=== PATIENT | male | born 1955 | race Caucasian/White ===

== ENCOUNTER 2017-03-29 00:21 | Emergency (ER) | payer BC, OTHER, SELFPAY ==
[2017-03-29 00:22] VITALS: BP 138/90; PULSE 87; RESP 14; TEMP 36.8; O2SAT 95; BMI 29.7
--- NOTE | 2017-03-29 00:34 | XR_ITS ---
XR chest 2V Ordering Physician: Rojelio Yousif MD Patient Age: 61 years: Male HISTORY: ITS.REASON: palpitations TECHNIQUE: PA and lateral chest COMPARISON : June 2014 CXR FINDINGS Lungs well expanded and clear with nothing definitely acute. No significant interval change. Heart danelle and mediastinal structures satisfactory. Scant apical pleural thickening and scarring bilaterally unchanged. Minor elevation right hemidiaphragm unchanged. Mild degenerative changes [id number]. Chest wall unremarkable. No pneumothorax no pleural effusion IMPRESSION: Stable chest nothing definitely acute
[2017-03-29 00:58] LABS: Basophils % 0.7 % (0.1-2.0); Eosinophils # 0.1 K/mm3 (0.0-0.4); Eosinophils % 2.1 % (0.1-12.0); Hematocrit 40.1 % (42.0-52.0); Hemoglobin 13.7 g/dL (14.1-18.0); Lymphocytes # 2.3 K/mm3 (0.7-4.5); Lymphocytes % 36.6 K/mm3 (10-50); Mean Corpuscular HGB Conc 34.2 g/dL (31.8-35.4); Mean Corpuscular Hemoglobin 32.1 pg (27.0-31.2); Mean Corpuscular Volume 93.8 fl (80-94); Mean Platelet Volume 8.1 fl (7.4-10.4); Monocytes # 0.4 K/mm3 (0.1-1.0); Monocytes % 5.9 % (1.7-9.3); Neutrophils # 3.4 K/mm3 (1.8-7.8); Neutrophils % 54.7 % (37.0-80.0); Platelet Count 139 K/mm3 (142-424); Red Blood Count 4.28 M/mm3 (4.60-6.20); Red Cell Distribution Width 14.9 % (11.5-17.5); White Blood Count 6.2 K/mm3 (4.8-10.8)
[2017-03-29 01:11] LABS: Alanine Aminotransferase 71 U/L (12-78); Albumin Level 4.3 gm/dL (3.4-5.0); Albumin/Globulin Ratio 1.2 (1.1-1.8); Alkaline Phosphatase 80 U/L (46-116); Anion Gap 22.9 mEq/L (5-15); Aspartate Amino Transferase 93 U/L (15-37); Bilirubin,Total 0.8 mg/dL (0.2-1.0); Blood Urea Nitrogen 32 mg/dL (7-18); Calcium 9.4 mg/dL (8.5-10.1); Carbon Dioxide 22 mmol/L (21.0-32.0); Chloride 97 mmol/L (98-107); Creatinine Clearance Estimated 37 mL/min (0-300); Creatinine,Serum 2.56 mg/dL (0.70-1.30); Estimated Glomerular Filt Rate 26 ml/min (>60); GFR (African American) 31 ML/MIN (>60); Globulin 3.6 gm/dl (1.3-3.2); Glucose 75 mg/dL (74-106); Potassium 3.9 mmoL/L (3.5-5.1); Sodium 138 mmol/L (136-145); Total Protein,Serum 7.9 gm/dL (6.4-8.2)
[2017-03-29 02:14] LABS: Troponin I < 0.02 ng/ml (0.00-0.06)
--- NOTE | 2017-03-29 02:20 | HMH.EDGENADL ---
ED Disposition Clinical Impression: Palpitations Disposition: Home, Self-Care Condition on Discharge: Good Instructions: DI for Palpitations Additional Instructions: Call your primary care provider tomorrow to arrange follow-up in the office. Return to the emergency room if any sustained palpitations return. Return if any chest pain, shortness of breath, fainting, or other concerns. Referrals: Sacha Dickson MD [Primary Care Provider] - - Critical Care Critical Care Time: No Attestation: On 03/29/17, the high probability of a clinically significant, sudden or life threatening deterioration of the following system(s) required my full and direct attention, intervention and personal management. The time I documented below is in addition to time spent performing reported procedures but includes the following listed in this critical care notation. Medical Decision Making Vital Signs: 03/29/17 00:22 Temperature 98.2 F Temperature Source Oral Pulse Rate [Right Radial] 87 Respiratory Rate 14 Blood Pressure [Right Arm] 138/90 Blood Pressure Mean [Right Arm] 106 Blood Pressure Source [Right Arm] Automatic Cuff Blood Pressure Position [Right Arm] Supine 02 Sat by Pulse Oximetry 95 Oxygen Delivery Method Room Air - Lab Data Lab Results 03/29/17 00:50: WBC 6.2, RBC 4.28 L, Hgb 13.7 L, Hct 40.1 L, MCV 93.8, MCH 32.1 H, MCHC 34.2, RDW 14.9, Plt Count 139 L, MPV 8.1, Neut % (Auto) 54.7, Lymph % (Auto) 36.6, [place] % (Auto) 5.9, Eos % (Auto) 2.1, Baso % (Auto) 0.7, Neut # (Auto) 3.4, Lymph # (Auto) 2.3, [place] # (Auto) 0.4, Eos # (Auto) 0.1, Baso # (Auto) 0.0 03/29/17 00:50: Sodium 138, Potassium 3.9, Chloride 97 L, Carbon Dioxide 22, Anion Gap 22.9 H, BUN 32 H, Creatinine 2.56 H, Estimated Creat Clear 37, Estimated GFR 26 L, Est GFR ( Amer) 31 L, Glucose 75, Calcium 9.4, Total Bilirubin 0.8, AST 93 H, ALT 71, Alkaline Phosphatase 80, Total Protein 7.9, Albumin 4.3, Globulin 3.6 H, Albumin/Globulin Ratio 1.2 03/29/17 00:50: Troponin I < 0.02 Result diagrams: 03/29/17 00:50 03/29/17 00:50 Orders (Tests/Meds): ORDERS Category Date Time Status XR chest 2V Stat Exams 03/29/17 00:34 Taken - Radiology Data #1 Image(s): Chest Image Reviewed: Yes I reviewed the patient's radiology results Preliminary Findings: Normal/NAD - ECG Data Tracing #1 EKG interpreted by Rojelio Yousif MD: Rhythm: sinus Rate: 82 [place]: Left Ectopy: none Conduction: Right bundle branch block ST Segment Changes: none T Wave Changes: none Q Waves: none No evidence of acute ischemia or injury Prior electrocardiagrams reviewed. No change from prior tracings. - Prabhjot Inquiry Pt receiving controlled substance: No General Adult HPI - General Chief complaint: Arrhythmia/Palpitations Stated complaint: heart racing Mode of Arrival: Ambulatory Limitations: No Limitations Description of Symptoms (Recalled from ER Triage Doc. by RN): felt sick and weak for months, tonight felt palpitations - History of Present Illness HPI narrative: The patient states that at about 10:30 PM he was laying on his left side when he began experiencing a rapid heartbeat off and on for about an hour. Episodes would last about 5 minutes each. No associated chest pain, shortness of breath, nausea, diaphoresis, or faintness. He denies having similar previous problems, but his believes that he had similar problems 10 years ago and had an extensive cardiac workup that was negative. He does not have any known coronary artery disease. The patient has the smell of alcohol on his breath and admits to drinking all day today while watching basketball. 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 - Related Data Home Medications Medication Instructions Recorded Confirmed Allopurinol [Allopurinol 100mg 100 mg PO DAILY 03/29/17 03/29/17 tablet] Lisinopril [Lisinopril 20mg Tab] 20
--- NOTE | 2017-03-29 02:23 | ED_ITS ---
ED Disposition Clinical Impression: Palpitations Disposition: Home, Self-Care Condition on Discharge: Good Instructions: DI for Palpitations Additional Instructions: Call your primary care provider tomorrow to arrange follow-up in the office. Return to the emergency room if any sustained palpitations return. Return if any chest pain, shortness of breath, fainting, or other concerns. Referrals: Sacha Dickson MD [Primary Care Provider] - - Critical Care Critical Care Time: No Attestation: On 03/29/17, the high probability of a clinically significant, sudden or life threatening deterioration of the following system(s) required my full and direct attention, intervention and personal management. The time I documented below is in addition to time spent performing reported procedures but includes the following listed in this critical care notation. Medical Decision Making Vital Signs: 03/29/17 00:22 Temperature 98.2 F Temperature Source Oral Pulse Rate [Right Radial] 87 Respiratory Rate 14 Blood Pressure [Right Arm] 138/90 Blood Pressure Mean [Right Arm] 106 Blood Pressure Source [Right Arm] Automatic Cuff Blood Pressure Position [Right Arm] Supine 02 Sat by Pulse Oximetry 95 Oxygen Delivery Method Room Air - Lab Data Lab Results 03/29/17 00:50: WBC 6.2, RBC 4.28 L, Hgb 13.7 L, Hct 40.1 L, MCV 93.8, MCH 32.1 H, MCHC 34.2, RDW 14.9, Plt Count 139 L, MPV 8.1, Neut % (Auto) 54.7, Lymph % ( Auto) 36.6, [place] % (Auto) 5.9, Eos % (Auto) 2.1, Baso % (Auto) 0.7, Neut # (Auto ) 3.4, Lymph # (Auto) 2.3, [place] # (Auto) 0.4, Eos # (Auto) 0.1, Baso # (Auto) 0.0 03/29/17 00:50: Sodium 138, Potassium 3.9, Chloride 97 L, Carbon Dioxide 22, Anion Gap 22.9 H, BUN 32 H, Creatinine 2.56 H, Estimated Creat Clear 37, Estimated GFR 26 L, Est GFR ( Amer) 31 L, Glucose 75, Calcium 9.4, Total Bilirubin 0.8, AST 93 H, ALT 71, Alkaline Phosphatase 80, Total Protein 7.9, Albumin 4.3, Globulin 3.6 H, Albumin/Globulin Ratio 1.2 03/29/17 00:50: Troponin I < 0.02 Result diagrams: 03/29/17 00:50 03/29/17 00:50 Orders (Tests/Meds): ORDERS Category Date Time Status XR chest 2V Stat Exams 03/29/17 00:34 Taken - Radiology Data #1 Image(s): Chest Image Reviewed: Yes I reviewed the patient's radiology results Preliminary Findings: Normal/NAD - ECG Data Tracing #1 EKG interpreted by Rojelio Yousif MD: Rhythm: sinus Rate: 82 [place]: Left Ectopy: none Conduction: Right bundle branch block ST Segment Changes: none T Wave Changes: none Q Waves: none No evidence of acute ischemia or injury Prior electrocardiagrams reviewed. No change from prior tracings. - Prabhjot Inquiry Pt receiving controlled substance: No General Adult HPI - General Chief complaint: Arrhythmia/Palpitations Stated complaint: heart racing Mode of Arrival: Ambulatory Limitations: No Limitations Description of Symptoms (Recalled from ER Triage Doc. by RN): felt sick and weak for months, tonight felt palpitations - History of Present Illness HPI narrative: The patient states that at about 10:30 PM he was laying on his left side when he began experiencing a rapid heartbeat off and on for about an hour. Episodes would last about 5 minutes each. No associated chest pain, shortness of breath , nausea, diaphoresis, or faintness. He denies having similar previous problems , but his wif
[2017-03-29 03:45] VITALS: BP 115/73; PULSE 83; RESP 14; TEMP 37.1; O2SAT 96
== END 2017-03-29 03:48 | disposition home or self-care (01) ==
PROVIDERS: Emergency Provider Emergency Medicine; PCP Internal Medicine Adolescent Medicine
DX: R00.2 Palpitations (principal); E11.9 Type 2 diabetes mellitus without complications; Z79.84 Long term (current) use of oral hypoglycemic drugs; Z79.899 Other long term (current) drug therapy
CPT/HCPCS: 71046; 80053; 84484; 85025; 93005; 93041; 99284

== ENCOUNTER → 2017-04-05 09:31 | Outpatient (CLI) | payer BC, OTHER, SELFPAY ==
[2017-04-05 10:40] LABS: Basophils % 0.3 % (0.1-2.0); Eosinophils # 0.1 K/mm3 (0.0-0.4); Eosinophils % 0.9 % (0.1-12.0); Hematocrit 36.3 % (42.0-52.0); Hemoglobin 12.2 g/dL (14.1-18.0); Lymphocytes # 1.7 K/mm3 (0.7-4.5); Lymphocytes % 15.9 K/mm3 (10-50); Mean Corpuscular HGB Conc 33.7 g/dL (31.8-35.4); Mean Corpuscular Hemoglobin 31.1 pg (27.0-31.2); Mean Corpuscular Volume 92.5 fl (80-94); Mean Platelet Volume 9.1 fl (7.4-10.4); Monocytes # 1.1 K/mm3 (0.1-1.0); Neutrophils # 7.5 K/mm3 (1.8-7.8); Platelet Count 218 K/mm3 (142-424); Red Blood Count 3.92 M/mm3 (4.60-6.20); Red Cell Distribution Width 14.4 % (11.5-17.5); White Blood Count 10.4 K/mm3 (4.8-10.8)
[2017-04-05 10:53] LABS: Hemoglobin A1C 6.4 % (0.0-7.0)
[2017-04-05 12:07] LABS: Alanine Aminotransferase 41 U/L (12-78); Albumin Level 3.8 gm/dL (3.4-5.0); Albumin/Globulin Ratio 1.2 (1.1-1.8); Alkaline Phosphatase 109 U/L (46-116); Anion Gap 35.3 mEq/L (5-15); Aspartate Amino Transferase 49 U/L (15-37); Bilirubin,Total 0.6 mg/dL (0.2-1.0); Calcium 7.8 mg/dL (8.5-10.1); Carbon Dioxide 15 mmol/L (21.0-32.0); Chol/HDL Ratio 5.5 (1-3.5); Cholesterol 148 mg/dL (140-200); Globulin 3.3 gm/dl (1.3-3.2); Glucose 159 mg/dL (74-106); HDL Cholesterol 27 mg/dL (27-67); LDL Cholesterol 69 mg/dL (0-130); Potassium 5.3 mmoL/L (3.5-5.1); Sodium 121 mmol/L (136-145); Total Protein,Serum 7.1 gm/dL (6.4-8.2); Triglycerides 258 mg/dL (30-200); VLDL Cholesterol 52 mg/dL (0-40)
[2017-04-05 13:02] LABS: Chloride 76 mmol/L (98-107); Estimated Glomerular Filt Rate 2 ml/min (>60); GFR (African American) 3 ML/MIN (>60)
[2017-04-05 13:20] LABS: Erythrocyte Sedimentation Rate 88 mm/hr (0-20)
[2017-04-05 13:30] LABS: Blood Urea Nitrogen 155 mg/dL (7-18); Creatinine,Serum 20.03 mg/dL (0.70-1.30)
[2017-04-07 16:16] LABS: Antinuclear Antibodies, IFA Negative (.)
== END ==
PROVIDERS: PCP Internal Medicine Adolescent Medicine; Visit Provider Internal Medicine Adolescent Medicine
DX: M12.9 Arthropathy, unspecified (principal); E11.9 Type 2 diabetes mellitus without complications
CPT/HCPCS: 36415; 80053; 80061; 83036; 85025; 85651; 86038

== ENCOUNTER 2017-04-05 14:05 | Emergency (ER) | payer BC, OTHER, SELFPAY ==
[2017-04-05 14:10] VITALS: BMI 27.7
[2017-04-05 14:12] VITALS: BP 101/68; PULSE 153; RESP 22; TEMP 36.8; O2SAT 99; BMI 27.7
--- NOTE | 2017-04-05 14:25 | XR_ITS ---
XR acute abdomen series HISTORY: ITS.REASON: NVD ORDERING PHYSICIAN: Smooth Campbell MD PATIENT AGE: 61 years COMPARISON: None FINDINGS: From the chest shows no acute finding. The bowel gas pattern is unremarkable. No obvious obstruction.. No abnormal calcifications are evident. No obvious renal or ureteral calculi.. No acute bony anomalies evident. IMPRESSION: No acute finding
--- NOTE | 2017-04-05 14:30 | HMH.EDGENADL ---
ED Disposition Clinical Impression: Acute renal failure (ARF), Diabetes, Acute pancreatitis, Alcoholism Disposition: Xfer Short-Term Hosp Condition on Discharge: Fair Instructions: DI for Diarrhea and Traveler's Diarrhea -- Adult, DI for Diarrhea and Traveler's Diarrhea -- Child, DI for Nausea -- Adult, DI for Nausea -- Child - Critical Care Critical Care Time: No Attestation: On , the high probability of a clinically significant, sudden or life threatening deterioration of the following system(s) required my full and direct attention, intervention and personal management. The time I documented below is in addition to time spent performing reported procedures but includes the following listed in this critical care notation. Medical Decision Making - Medical Records Medical records reviewed: Yes: I reviewed the patient's medical records. Vital Signs: 04/05/17 14:12 04/05/17 15:44 Temperature 98.3 F Temperature Source Oral Pulse Rate [Right Radial] 153 H 78 Respiratory Rate 22 16 Blood Pressure [Right Arm] 101/68 103/57 Blood Pressure Mean [Right Arm] 79 72 Blood Pressure Source [Right Arm] Automatic Cuff Automatic Cuff Blood Pressure Position [Right Arm] Supine Sitting 02 Sat by Pulse Oximetry 99 100 Oxygen Delivery Method Room Air - Lab Data Lab Results 04/05/17 14:00: WBC 9.4, RBC 4.03 L, Hgb 12.8 L, Hct 36.9 L, MCV 91.6, MCH 31.7 H, MCHC 34.6, RDW 14.5, Plt Count 237, MPV 9.0, Neut % (Auto) 75.1, Lymph % (Auto) 14.5, [place] % (Auto) 9.2, Eos % (Auto) 1.1, Baso % (Auto) 0.1, Neut # (Auto) 7.1, Lymph # (Auto) 1.4, [place] # (Auto) 0.9, Eos # (Auto) 0.1, Baso # (Auto) 0.0 04/05/17 14:00: Magnesium 2.8 H, Plasma/Serum Alcohol 0 04/05/17 14:00: Lipase 6325 H 04/05/17 14:00: Lactic Acid 2.3 H 04/05/17 14:16: Sodium 129 L, Potassium 5.5 H, Chloride 76 L, Carbon Dioxide 15 L, Anion Gap 43.5 H, BUN 156 H*, Creatinine 20.41 H, Estimated Creat Clear 4, Estimated GFR 2 L*, Est GFR ( Amer) 3 L*, Glucose 180 H, Calcium 8.1 L, Total Bilirubin 0.6, AST 51 H, ALT 42, Alkaline Phosphatase 108, Total Creatine Kinase 266, CK-MB (CK-2) 2.6, CK-MB (CK-2) Rel Index 1.0, Troponin I < 0.02, Total Protein 7.9, Albumin 3.8, Globulin 4.1 H, Albumin/Globulin Ratio 0.9 L 04/05/17 14:16: B-Natriuretic Peptide 385 H 04/05/17 14:28: Hemoglobin A1c 6.3 04/05/17 14:40: Specimen Source Right radial, O2 % Room air, ABG pH 7.30 L, ABG pCO2 23.2 L, ABG pO2 98.1, ABG HCO3 11.3 L, ABG Total CO2 12.0 L, ABG O2 Saturation 97, ABG Base Excess -15.1 L, [place] Test Acceptable Result diagrams: 04/05/17 14:00 04/05/17 14:16 Orders (Tests/Meds): ED MEDICATIONS Generic Name Dose Route Start Last Admin Trade Name Freq PRN Reason Stop Dose Admin Sodium Chloride 1,000 mls @ 125 mls/hr 04/05/17 14:30 04/05/17 14:40 Sod Chloride 0.9% 1000ml Bag IV 05/05/17 14:29 125 mls/hr .Q8H NASRIN Administration Discontinued Medications Generic Name Dose Route Start Last Admin Trade Name Freq PRN Reason Stop Dose Admin Famotidine 20 mg 04/05/17 14:30 04/05/17 14:40 Pepcid 20mg/2ml Vial IV 04/05/17 14:31 20 mg ONCE ONE Administration ORDERS Category Date Time Status Arterial Blood Gas Stat RT 04/05/17 14:41 Ordered - Radiology Data #1 Image(s): Chest, Abdomen Image Reviewed: Yes I reviewed the patient's radiology image Preliminary Findings: Normal/NAD No acute findings on a acute abdomen series. - CT Data CT Scan: Head Time Received: 15:[address] Reviewed: Yes: I have viewed the radiologist's interpretation - ECG Data Tracing #1 Sinus rhythm 84/min baseline artifact right bundle branch block with left axis deviation no acute ST segment or T-wave changes. Second EKG was normal sinus rhythm 75/min left axis deviation right bundle branch block no T-wave changes suggestive of hyperkalemia. ECG initial impression time: 15:59 - Prabhjot Inquiry Pt receiving controlled substance: No Prabhjot was queried
--- NOTE | 2017-04-05 14:34 | ED_ITS ---
ED Disposition Clinical Impression: Acute renal failure (ARF), Diabetes, Acute pancreatitis, Alcoholism Disposition: Xfer Short-Term Hosp Condition on Discharge: Fair Instructions: DI for Diarrhea and Traveler's Diarrhea -- Adult, DI for Diarrhea and Traveler's Diarrhea -- Child, DI for Nausea -- Adult, DI for Nausea -- Child - Critical Care Critical Care Time: No Attestation: On , the high probability of a clinically significant, sudden or life threatening deterioration of the following system(s) required my full and direct attention, intervention and personal management. The time I documented below is in addition to time spent performing reported procedures but includes the following listed in this critical care notation. Medical Decision Making - Medical Records Medical records reviewed: Yes: I reviewed the patient's medical records. Vital Signs: 04/05/17 14:12 04/05/17 15:44 Temperature 98.3 F Temperature Source Oral Pulse Rate [Right Radial] 153 H 78 Respiratory Rate 22 16 Blood Pressure [Right Arm] 101/68 103/57 Blood Pressure Mean [Right Arm] 79 72 Blood Pressure Source [Right Arm] Automatic Cuff Automatic Cuff Blood Pressure Position [Right Arm] Supine Sitting 02 Sat by Pulse Oximetry 99 100 Oxygen Delivery Method Room Air - Lab Data Lab Results 04/05/17 14:00: WBC 9.4, RBC 4.03 L, Hgb 12.8 L, Hct 36.9 L, MCV 91.6, MCH 31.7 H, MCHC 34.6, RDW 14.5, Plt Count 237, MPV 9.0, Neut % (Auto) 75.1, Lymph % ( Auto) 14.5, [place] % (Auto) 9.2, Eos % (Auto) 1.1, Baso % (Auto) 0.1, Neut # (Auto ) 7.1, Lymph # (Auto) 1.4, [place] # (Auto) 0.9, Eos # (Auto) 0.1, Baso # (Auto) 0.0 04/05/17 14:00: Magnesium 2.8 H, Plasma/Serum Alcohol 0 04/05/17 14:00: Lipase 6325 H 04/05/17 14:00: Lactic Acid 2.3 H 04/05/17 14:16: Sodium 129 L, Potassium 5.5 H, Chloride 76 L, Carbon Dioxide 15 L, Anion Gap 43.5 H, BUN 156 H*, Creatinine 20.41 H, Estimated Creat Clear 4, Estimated GFR 2 L*, Est GFR ( Amer) 3 L*, Glucose 180 H, Calcium 8.1 L, Total Bilirubin 0.6, AST 51 H, ALT 42, Alkaline Phosphatase 108, Total Creatine Kinase 266, CK-MB (CK-2) 2.6, CK-MB (CK-2) Rel Index 1.0, Troponin I < 0.02, Total Protein 7.9, Albumin 3.8, Globulin 4.1 H, Albumin/Globulin Ratio 0.9 L 04/05/17 14:16: B-Natriuretic Peptide 385 H 04/05/17 14:28: Hemoglobin A1c 6.3 04/05/17 14:40: Specimen Source Right radial, O2 % Room air, ABG pH 7.30 L, ABG pCO2 23.2 L, ABG pO2 98.1, ABG HCO3 11.3 L, ABG Total CO2 12.0 L, ABG O2 Saturation 97, ABG Base Excess -15.1 L, [place] Test Acceptable Result diagrams: 04/05/17 14:00 04/05/17 14:16 Orders (Tests/Meds): ED MEDICATIONS Generic Name Dose Route Start Last Admin Trade Name Freq PRN Reason Stop Dose Admin Sodium Chloride 1,000 mls @ 125 mls/hr 04/05/17 14:30 04/05/17 14:40 Sod Chloride 0.9% 1000ml Bag IV 05/05/17 14:29 125 mls/hr .Q8H NASRIN Administration Discontinued Medications Generic Name Dose Route Start Last Admin Trade Name Freq PRN Reason Stop Dose Admin Famotidine 20 mg 04/05/17 14:30 04/05/17 14:40 Pepcid 20mg/2ml Vial IV 04/05/17 14:31 20 mg ONCE ONE Administration ORDERS Category Date Time Status Arterial Blood Gas Stat RT 04/05/17 14:41 Ordered - Radiology Data #1 Image(s): Chest, Abdomen Image Reviewed: Yes I reviewed the patient's radiology imag
--- NOTE | 2017-04-05 14:37 | CT_ITS ---
CT head/brain wo con HISTORY: Dizziness with vomiting ITS.REASON: persistent vomiting x one week ORDERING PHYSICIAN: Smooth Campbell MD PATIENT AGE: 61 years COMPARISON: None TECHNIQUE: Axial images obtained without contrast. Brain and bone windows reviewed. FINDINGS: No midline shift, mass effect, intracranial hemorrhage, hydrocephalus, or extra-axial fluid collection is evident. There is generalized atrophy with microangiopathic gliotic change The calvarium has an unremarkable appearance. No mastoid effusion. No sinus air-fluid levels.. IMPRESSION: No acute intracranial findings Atrophy with chronic ischemic gliotic change.
[2017-04-05 14:44] LABS: Hemoglobin A1C 6.3 % (0.0-7.0)
[2017-04-05 14:45] LABS: ABG Base Excess -15.1 mmol/L (-2.4-2.3); ABG HCO3 11.3 mmhg (22.0-26.0); ABG Oxygen Saturation 97 % (90-100); ABG PCO2 23.2 mmhg (35.0-45.0); ABG PO2 98.1 mmhg (80-100); Allen's Test ACCEPTABLE; Oxygen ROOM AIR %; Source Right Radial
[2017-04-05 14:46] LABS: Basophils % 0.1 % (0.1-2.0); Eosinophils # 0.1 K/mm3 (0.0-0.4); Eosinophils % 1.1 % (0.1-12.0); Hematocrit 36.9 % (42.0-52.0); Hemoglobin 12.8 g/dL (14.1-18.0); Lymphocytes # 1.4 K/mm3 (0.7-4.5); Lymphocytes % 14.5 K/mm3 (10-50); Mean Corpuscular HGB Conc 34.6 g/dL (31.8-35.4); Mean Corpuscular Hemoglobin 31.7 pg (27.0-31.2); Mean Corpuscular Volume 91.6 fl (80-94); Monocytes # 0.9 K/mm3 (0.1-1.0); Monocytes % 9.2 % (1.7-9.3); Neutrophils # 7.1 K/mm3 (1.8-7.8); Neutrophils % 75.1 % (37.0-80.0); Platelet Count 237 K/mm3 (142-424); Red Blood Count 4.03 M/mm3 (4.60-6.20); Red Cell Distribution Width 14.5 % (11.5-17.5); White Blood Count 9.4 K/mm3 (4.8-10.8)
[2017-04-05 15:02] LABS: Alanine Aminotransferase 42 U/L (12-78); Albumin Level 3.8 gm/dL (3.4-5.0); Albumin/Globulin Ratio 0.9 (1.1-1.8); Alkaline Phosphatase 108 U/L (46-116); Anion Gap 43.5 mEq/L (5-15); Aspartate Amino Transferase 51 U/L (15-37); Bilirubin,Total 0.6 mg/dL (0.2-1.0); Calcium 8.1 mg/dL (8.5-10.1); Carbon Dioxide 15 mmol/L (21.0-32.0); Creatine Kinase 266 U/L (39-308); Creatine Kinase MB 2.6 mg/ml (0.0-3.6); Globulin 4.1 gm/dl (1.3-3.2); Glucose 180 mg/dL (74-106); Potassium 5.5 mmoL/L (3.5-5.1); Sodium 129 mmol/L (136-145); Total Protein,Serum 7.9 gm/dL (6.4-8.2); Troponin I < 0.02 ng/ml (0.00-0.06)
[2017-04-05 15:10] LABS: Lactic Acid 2.3 mmol/L (0.4-2.0)
[2017-04-05 15:11] LABS: Ethyl Alcohol 0 mg/dL (0-99); Magnesium 2.8 mg/dL (1.4-2.2)
[2017-04-05 15:12] LABS: Blood Urea Nitrogen 156 mg/dL (7-18); Chloride 76 mmol/L (98-107)
[2017-04-05 15:13] LABS: Creatinine Clearance Estimated 4 mL/min (0-300); Creatinine,Serum 20.41 mg/dL (0.70-1.30); Estimated Glomerular Filt Rate 2 ml/min (>60); GFR (African American) 3 ML/MIN (>60)
[2017-04-05 15:27] LABS: Lipase 6325 u/L (73-393)
[2017-04-05 15:44] VITALS: BP 103/57; PULSE 78; RESP 16; O2SAT 100
[2017-04-05 17:08] VITALS: BP 120/72; PULSE 68; RESP 20; O2SAT 100
== END 2017-04-05 17:09 | disposition short-term general hospital (02) ==
PROVIDERS: Emergency Provider Emergency Medicine; PCP Internal Medicine Adolescent Medicine
DX: N17.9 Acute kidney failure, unspecified (principal); E11.9 Type 2 diabetes mellitus without complications; K85.90 Acute pancreatitis without necrosis or infection, unspecified; F10.20 Alcohol dependence, uncomplicated
CPT/HCPCS: 70450; 74021; 80053; 82550; 82553; 82803; 83036; 83605; 83690; 83735; 83880; 84484; 85025; 93005; 93041; 96360; 96374; 96375; 99285; J2405

== ENCOUNTER → 2017-04-22 14:50 | Outpatient (CLI) | payer BC, OTHER, SELFPAY ==
[2017-04-22 15:34] LABS: Hemoglobin A1C 6.9 % (0.0-7.0)
[2017-04-22 15:43] LABS: Alanine Aminotransferase 54 U/L (12-78); Albumin/Globulin Ratio 0.7 (1.1-1.8); Alkaline Phosphatase 198 U/L (46-116); Anion Gap 11.3 mEq/L (5-15); Aspartate Amino Transferase 29 U/L (15-37); Bilirubin,Total 0.3 mg/dL (0.2-1.0); Blood Urea Nitrogen 40 mg/dL (7-18); Calcium 8.6 mg/dL (8.5-10.1); Carbon Dioxide 29 mmol/L (21.0-32.0); Chloride 104 mmol/L (98-107); Creatinine,Serum 2.58 mg/dL (0.70-1.30); Estimated Glomerular Filt Rate 26 ml/min (>60); GFR (African American) 31 ML/MIN (>60); Globulin 4.3 gm/dl (1.3-3.2); Glucose 218 mg/dL (74-106); Potassium 4.3 mmoL/L (3.5-5.1); Sodium 140 mmol/L (136-145); Total Protein,Serum 7.3 gm/dL (6.4-8.2)
== END ==
PROVIDERS: PCP Internal Medicine Adolescent Medicine; Visit Provider Internal Medicine Adolescent Medicine
DX: E11.9 Type 2 diabetes mellitus without complications (principal)
CPT/HCPCS: 36415; 80053; 83036

== ENCOUNTER → 2017-04-27 14:15 | Outpatient (CLI) | payer BC, OTHER, SELFPAY ==
[2017-04-27 14:44] LABS: Basophils # 0.1 K/mm3 (0-0.2); Basophils % 0.8 % (0.1-2.0); Eosinophils # 0.4 K/mm3 (0.0-0.4); Eosinophils % 5.3 % (0.1-12.0); Hematocrit 28.4 % (42.0-52.0); Hemoglobin 9.5 g/dL (14.1-18.0); Lymphocytes # 1.7 K/mm3 (0.7-4.5); Lymphocytes % 20.7 K/mm3 (10-50); Mean Corpuscular HGB Conc 33.3 g/dL (31.8-35.4); Mean Corpuscular Hemoglobin 31.7 pg (27.0-31.2); Mean Corpuscular Volume 94.9 fl (80-94); Mean Platelet Volume 7.8 fl (7.4-10.4); Monocytes # 0.4 K/mm3 (0.1-1.0); Monocytes % 4.5 % (1.7-9.3); Neutrophils # 5.6 K/mm3 (1.8-7.8); Neutrophils % 68.7 % (37.0-80.0); Platelet Count 529 K/mm3 (142-424); Red Blood Count 2.99 M/mm3 (4.60-6.20); Red Cell Distribution Width 14.8 % (11.5-17.5); White Blood Count 8.1 K/mm3 (4.8-10.8)
[2017-04-27 15:36] LABS: Alanine Aminotransferase 65 U/L (12-78); Albumin Level 3.6 gm/dL (3.4-5.0); Albumin/Globulin Ratio 0.9 (1.1-1.8); Alkaline Phosphatase 166 U/L (46-116); Anion Gap 13.7 mEq/L (5-15); Aspartate Amino Transferase 34 U/L (15-37); Bilirubin,Total 0.3 mg/dL (0.2-1.0); Blood Urea Nitrogen 30 mg/dL (7-18); Calcium 9.1 mg/dL (8.5-10.1); Carbon Dioxide 25 mmol/L (21.0-32.0); Chloride 104 mmol/L (98-107); Creatinine,Serum 1.81 mg/dL (0.70-1.30); Estimated Glomerular Filt Rate 39 ml/min (>60); GFR (African American) 47 ML/MIN (>60); Globulin 3.8 gm/dl (1.3-3.2); Glucose 245 mg/dL (74-106); Potassium 4.7 mmoL/L (3.5-5.1); Sodium 138 mmol/L (136-145); Total Protein,Serum 7.4 gm/dL (6.4-8.2)
== END ==
PROVIDERS: Visit Provider Internal Medicine Adolescent Medicine
DX: N17.0 Acute kidney failure with tubular necrosis (principal); E11.9 Type 2 diabetes mellitus without complications
CPT/HCPCS: 36415; 80053; 85025

== ENCOUNTER → 2017-05-04 13:46 | Outpatient (CLI) | payer BC, OTHER, SELFPAY ==
[2017-05-04 14:24] LABS: Basophils % 0.4 % (0.1-2.0); Eosinophils # 0.2 K/mm3 (0.0-0.4); Eosinophils % 2.9 % (0.1-12.0); Hematocrit 29.8 % (42.0-52.0); Hemoglobin 9.6 g/dL (14.1-18.0); Lymphocytes # 1.9 K/mm3 (0.7-4.5); Lymphocytes % 23.3 K/mm3 (10-50); Mean Corpuscular HGB Conc 32.2 g/dL (31.8-35.4); Mean Corpuscular Volume 96.3 fl (80-94); Mean Platelet Volume 8.5 fl (7.4-10.4); Monocytes # 0.5 K/mm3 (0.1-1.0); Monocytes % 5.7 % (1.7-9.3); Neutrophils # 5.6 K/mm3 (1.8-7.8); Neutrophils % 67.8 % (37.0-80.0); Platelet Count 342 K/mm3 (142-424); Red Blood Count 3.09 M/mm3 (4.60-6.20); Red Cell Distribution Width 14.3 % (11.5-17.5); White Blood Count 8.3 K/mm3 (4.8-10.8)
[2017-05-04 14:35] LABS: Alanine Aminotransferase 44 U/L (12-78); Albumin Level 3.8 gm/dL (3.4-5.0); Alkaline Phosphatase 119 U/L (46-116); Anion Gap 15.7 mEq/L (5-15); Aspartate Amino Transferase 17 U/L (15-37); Bilirubin,Total 0.2 mg/dL (0.2-1.0); Blood Urea Nitrogen 47 mg/dL (7-18); Calcium 9.3 mg/dL (8.5-10.1); Carbon Dioxide 25 mmol/L (21.0-32.0); Chloride 103 mmol/L (98-107); Creatinine,Serum 1.55 mg/dL (0.70-1.30); Estimated Glomerular Filt Rate 46 ml/min (>60); GFR (African American) 56 ML/MIN (>60); Globulin 3.7 gm/dl (1.3-3.2); Glucose 265 mg/dL (74-106); Potassium 4.7 mmoL/L (3.5-5.1); Sodium 139 mmol/L (136-145); Total Protein,Serum 7.5 gm/dL (6.4-8.2)
== END ==
PROVIDERS: PCP Internal Medicine Adolescent Medicine; Visit Provider Internal Medicine Adolescent Medicine
DX: N17.0 Acute kidney failure with tubular necrosis (principal); E11.9 Type 2 diabetes mellitus without complications
CPT/HCPCS: 36415; 80053; 85025

== ENCOUNTER → 2017-05-18 11:33 | Outpatient (CLI) | payer BC, OTHER, SELFPAY ==
[2017-05-18 12:00] LABS: Basophils % 0.3 % (0.1-2.0); Eosinophils # 0.1 K/mm3 (0.0-0.4); Eosinophils % 1.4 % (0.1-12.0); Hematocrit 32.8 % (42.0-52.0); Hemoglobin 10.7 g/dL (14.1-18.0); Lymphocytes # 1.8 K/mm3 (0.7-4.5); Lymphocytes % 22.3 K/mm3 (10-50); Mean Corpuscular HGB Conc 32.5 g/dL (31.8-35.4); Mean Corpuscular Hemoglobin 31.3 pg (27.0-31.2); Mean Corpuscular Volume 96.3 fl (80-94); Mean Platelet Volume 8.4 fl (7.4-10.4); Monocytes # 0.5 K/mm3 (0.1-1.0); Neutrophils # 5.5 K/mm3 (1.8-7.8); Platelet Count 251 K/mm3 (142-424); Red Blood Count 3.41 M/mm3 (4.60-6.20); Red Cell Distribution Width 13.8 % (11.5-17.5); White Blood Count 7.9 K/mm3 (4.8-10.8)
[2017-05-18 12:14] LABS: Alanine Aminotransferase 51 U/L (12-78); Albumin Level 3.9 gm/dL (3.4-5.0); Alkaline Phosphatase 128 U/L (46-116); Anion Gap 14.4 mEq/L (5-15); Aspartate Amino Transferase 16 U/L (15-37); Bilirubin,Total 0.3 mg/dL (0.2-1.0); Blood Urea Nitrogen 28 mg/dL (7-18); Calcium 9.4 mg/dL (8.5-10.1); Carbon Dioxide 26 mmol/L (21.0-32.0); Chloride 103 mmol/L (98-107); Estimated Glomerular Filt Rate 52 ml/min (>60); GFR (African American) 63 ML/MIN (>60); Globulin 4.1 gm/dl (1.3-3.2); Glucose 267 mg/dL (74-106); Potassium 4.4 mmoL/L (3.5-5.1); Sodium 139 mmol/L (136-145)
[2017-05-18 13:20] LABS: Hemoglobin A1C 6.9 % (0.0-7.0)
== END ==
PROVIDERS: Visit Provider Internal Medicine Adolescent Medicine
DX: N17.0 Acute kidney failure with tubular necrosis (principal); D63.1 Anemia in chronic kidney disease; R50.9 Fever, unspecified
CPT/HCPCS: 36415; 80053; 83036; 85025

== ENCOUNTER → 2017-06-12 08:06 | Outpatient (CLI) | payer BC, OTHER, SELFPAY ==
[2017-06-12 08:47] LABS: Hemoglobin A1C 6.5 % (0.0-7.0)
[2017-06-12 10:12] LABS: Alanine Aminotransferase 67 U/L (12-78); Albumin Level 4.2 gm/dL (3.4-5.0); Albumin/Globulin Ratio 1.1 (1.1-1.8); Alkaline Phosphatase 139 U/L (46-116); Anion Gap 14.6 mEq/L (5-15); Aspartate Amino Transferase 25 U/L (15-37); Bilirubin,Total 0.3 mg/dL (0.2-1.0); Blood Urea Nitrogen 31 mg/dL (7-18); Calcium 10.2 mg/dL (8.5-10.1); Carbon Dioxide 27 mmol/L (21.0-32.0); Chloride 102 mmol/L (98-107); Creatinine,Serum 1.26 mg/dL (0.70-1.30); Estimated Glomerular Filt Rate 59 ml/min (>60); GFR (African American) 71 ML/MIN (>60); Globulin 3.7 gm/dl (1.3-3.2); Glucose 162 mg/dL (74-106); Potassium 4.6 mmoL/L (3.5-5.1); Sodium 139 mmol/L (136-145); Total Protein,Serum 7.9 gm/dL (6.4-8.2)
== END ==
PROVIDERS: Visit Provider Internal Medicine Adolescent Medicine
DX: E78.5 Hyperlipidemia, unspecified (principal); E11.9 Type 2 diabetes mellitus without complications
CPT/HCPCS: 36415; 80053; 83036

== ENCOUNTER → 2017-06-17 07:44 | Outpatient (CLI) | payer BC, OTHER, SELFPAY ==
[2017-06-17 09:25] LABS: Blood Urea Nitrogen 29 mg/dL (7-18); Carbon Dioxide 30 mmol/L (21.0-32.0); Chloride 106 mmol/L (98-107); Creatinine,Serum 1.24 mg/dL (0.70-1.30); Estimated Glomerular Filt Rate 60 ml/min (>60); GFR (African American) 72 ML/MIN (>60); Glucose 151 mg/dL (74-106); Sodium 143 mmol/L (136-145)
== END ==
PROVIDERS: PCP Internal Medicine Adolescent Medicine; Visit Provider Internal Medicine Nephrology
DX: N17.9 Acute kidney failure, unspecified (principal)
CPT/HCPCS: 36415; 80048

== ENCOUNTER → 2017-08-22 08:12 | Outpatient (CLI) | payer BC, OTHER, SELFPAY ==
[2017-08-22 09:19] LABS: Basophils % 0.4 % (0.1-2.0); Eosinophils # 0.2 K/mm3 (0.0-0.4); Eosinophils % 2.2 % (0.1-12.0); Hematocrit 45.9 % (42.0-52.0); Hemoglobin 14.6 g/dL (14.1-18.0); Lymphocytes # 2.3 K/mm3 (0.7-4.5); Lymphocytes % 33.1 K/mm3 (10-50); Mean Corpuscular HGB Conc 31.7 g/dL (31.8-35.4); Mean Corpuscular Hemoglobin 28.1 pg (27.0-31.2); Mean Corpuscular Volume 88.5 fl (80-94); Mean Platelet Volume 8.2 fl (7.4-10.4); Monocytes # 0.4 K/mm3 (0.1-1.0); Monocytes % 5.7 % (1.7-9.3); Neutrophils # 4.1 K/mm3 (1.8-7.8); Neutrophils % 58.6 % (37.0-80.0); Platelet Count 192 K/mm3 (142-424); Red Blood Count 5.19 M/mm3 (4.60-6.20); Red Cell Distribution Width 13.1 % (11.5-17.5)
[2017-08-22 10:11] LABS: Alanine Aminotransferase 49 U/L (12-78); Albumin Level 4.1 gm/dL (3.4-5.0); Albumin/Globulin Ratio 1.4 (1.1-1.8); Alkaline Phosphatase 117 U/L (46-116); Anion Gap 11.9 mEq/L (5-15); Aspartate Amino Transferase 26 U/L (15-37); Bilirubin,Total 0.5 mg/dL (0.2-1.0); Blood Urea Nitrogen 23 mg/dL (7-18); Calcium 9.7 mg/dL (8.5-10.1); Carbon Dioxide 29 mmol/L (21.0-32.0); Chloride 107 mmol/L (98-107); Estimated Glomerular Filt Rate 57 ml/min (>60); GFR (African American) 68 ML/MIN (>60); Glucose 123 mg/dL (74-106); Potassium 4.9 mmoL/L (3.5-5.1); Sodium 143 mmol/L (136-145); Total Protein,Serum 7.1 gm/dL (6.4-8.2); Uric Acid 5.2 mg/dL (2.6-7.2)
[2017-08-22 16:02] LABS: Chol/HDL Ratio 4.4 (1-3.5); Cholesterol 141 mg/dL (140-200); HDL Cholesterol 32 mg/dL (27-67); LDL Cholesterol 82 mg/dL (0-130); Triglycerides 135 mg/dL (30-200); VLDL Cholesterol 27 mg/dL (0-40)
== END ==
PROVIDERS: Visit Provider Internal Medicine Adolescent Medicine
DX: E78.5 Hyperlipidemia, unspecified (principal); E11.9 Type 2 diabetes mellitus without complications; M10.9 Gout, unspecified
CPT/HCPCS: 36415; 80053; 80061; 84550; 85025

== ENCOUNTER → 2017-09-23 07:19 | Outpatient (CLI) | payer BC, OTHER, SELFPAY ==
[2017-09-23 07:22] LABS: Microscopic, Urine URINE MICROSCOPIC (MICROSCOPIC)
[2017-09-23 07:42] LABS: Appearance,Urine CLEAR (Clear); Bilirubin,Urine Negative (Negative); Blood, Urine Negative (Negative); Color,Urine YELLOW (Yellow); Glucose,Urine (UA) 3+ (Negative); Ketones,Urine Negative (Negative); Leukocyte Esterase,Urine Negative (Negative); Nitrate,Urine Negative (Negative); Protein,Urine Negative (Negative); Specific Gravity, Urine 1.025 (1.005-1.030); Urobilinogen,Urine 0.2 EU/dl (0.2)
[2017-09-23 07:44] LABS: Basophils % 0.4 % (0.1-2.0); Eosinophils # 0.1 K/mm3 (0.0-0.4); Eosinophils % 1.7 % (0.1-12.0); Hematocrit 47.5 % (42.0-52.0); Hemoglobin 15.2 g/dL (14.1-18.0); Lymphocytes # 2.1 K/mm3 (0.7-4.5); Lymphocytes % 24.9 K/mm3 (10-50); Mean Corpuscular Hemoglobin 27.9 pg (27.0-31.2); Mean Corpuscular Volume 87.1 fl (80-94); Mean Platelet Volume 8.7 fl (7.4-10.4); Monocytes # 0.5 K/mm3 (0.1-1.0); Monocytes % 5.9 % (1.7-9.3); Neutrophils # 5.6 K/mm3 (1.8-7.8); Neutrophils % 67.1 % (37.0-80.0); Platelet Count 189 K/mm3 (142-424); Red Blood Count 5.45 M/mm3 (4.60-6.20); Red Cell Distribution Width 13.4 % (11.5-17.5); White Blood Count 8.4 K/mm3 (4.8-10.8)
[2017-09-23 07:56] LABS: Blood Urea Nitrogen 23 mg/dL (7-18)
[2017-09-23 07:57] LABS: Bacteria,Urine Trace /lpf; Squamous Epithelial Cell,Urine Occasional #/hpf (0-5)
[2017-09-23 08:13] LABS: Creatinine,Urine Random 141 mg/dL (20-320); Total Protein,Urine Random 11.8 mg/dL (0.0-11.9)
[2017-09-23 08:18] LABS: Albumin Level 4.2 gm/dL (3.4-5.0); Anion Gap 10.2 mEq/L (5-15); Calcium 9.4 mg/dL (8.5-10.1); Carbon Dioxide 27 mmol/L (21.0-32.0); Chloride 106 mmol/L (98-107); Creatinine,Serum 1.21 mg/dL (0.70-1.30); Estimated Glomerular Filt Rate 61 ml/min (>60); GFR (African American) 74 ML/MIN (>60); Glucose 140 mg/dL (74-106); Potassium 4.2 mmoL/L (3.5-5.1); Sodium 139 mmol/L (136-145)
== END ==
PROVIDERS: Visit Provider Internal Medicine Nephrology
DX: E11.9 Type 2 diabetes mellitus without complications (principal)
CPT/HCPCS: 36415; 80069; 81001; 82570; 84155; 85025

== ENCOUNTER → 2017-10-13 07:22 | Outpatient (CLI) | payer BC, OTHER, SELFPAY ==
[2017-10-13 08:46] LABS: Alanine Aminotransferase 42 U/L (12-78); Albumin/Globulin Ratio 1.1 (1.1-1.8); Alkaline Phosphatase 123 U/L (46-116); Anion Gap 12.6 mEq/L (5-15); Aspartate Amino Transferase 17 U/L (15-37); Bilirubin,Total 0.5 mg/dL (0.2-1.0); Blood Urea Nitrogen 26 mg/dL (7-18); Calcium 9.7 mg/dL (8.5-10.1); Carbon Dioxide 27 mmol/L (21.0-32.0); Chloride 105 mmol/L (98-107); Chol/HDL Ratio 4.7 (1-3.5); Cholesterol 149 mg/dL (140-200); Creatinine,Serum 1.03 mg/dL (0.70-1.30); Estimated Glomerular Filt Rate 74 ml/min (>60); GFR (African American) 89 ML/MIN (>60); Globulin 3.6 gm/dl (1.3-3.2); Glucose 153 mg/dL (74-106); HDL Cholesterol 32 mg/dL (27-67); LDL Cholesterol 86 mg/dL (0-130); Potassium 4.6 mmoL/L (3.5-5.1); Sodium 140 mmol/L (136-145); Total Protein,Serum 7.6 gm/dL (6.4-8.2); Triglycerides 157 mg/dL (30-200); VLDL Cholesterol 31 mg/dL (0-40)
[2017-10-13 10:36] LABS: Hemoglobin A1C 7.3 % (0.0-7.0)
== END ==
PROVIDERS: Visit Provider Internal Medicine Adolescent Medicine
DX: E11.9 Type 2 diabetes mellitus without complications (principal); E78.5 Hyperlipidemia, unspecified
CPT/HCPCS: 36415; 80053; 80061; 83036

== ENCOUNTER → 2017-12-22 09:54 | Outpatient (CLI) | payer BC, OTHER, SELFPAY ==
[2017-12-22 10:36] LABS: Basophils % 0.5 % (0.1-2.0); Eosinophils # 0.2 K/mm3 (0.0-0.4); Eosinophils % 2.2 % (0.1-12.0); Hematocrit 54.9 % (42.0-52.0); Hemoglobin 17.5 g/dL (14.1-18.0); Lymphocytes % 30.8 K/mm3 (10-50); Mean Corpuscular Hemoglobin 28.2 pg (27.0-31.2); Mean Corpuscular Volume 88.4 fl (80-94); Mean Platelet Volume 7.9 fl (7.4-10.4); Monocytes # 0.3 K/mm3 (0.1-1.0); Monocytes % 5.2 % (1.7-9.3); Neutrophils # 4.1 K/mm3 (1.8-7.8); Neutrophils % 61.3 % (37.0-80.0); Platelet Count 189 K/mm3 (142-424); Red Blood Count 6.21 M/mm3 (4.60-6.20); Red Cell Distribution Width 13.8 % (11.5-17.5); White Blood Count 6.6 K/mm3 (4.8-10.8)
[2017-12-22 12:05] LABS: Alanine Aminotransferase 55 U/L (12-78); Albumin Level 4.6 gm/dL (3.4-5.0); Albumin/Globulin Ratio 1.4 (1.1-1.8); Alkaline Phosphatase 113 U/L (46-116); Anion Gap 12.5 mEq/L (5-15); Aspartate Amino Transferase 27 U/L (15-37); Bilirubin,Total 0.5 mg/dL (0.2-1.0); Blood Urea Nitrogen 23 mg/dL (7-18); Calcium 9.8 mg/dL (8.5-10.1); Carbon Dioxide 30 mmol/L (21.0-32.0); Chloride 104 mmol/L (98-107); Chol/HDL Ratio 3.7 (1-3.5); Cholesterol 143 mg/dL (140-200); Creatinine,Serum 1.27 mg/dL (0.70-1.30); Estimated Glomerular Filt Rate 58 ml/min (>60); GFR (African American) 70 ML/MIN (>60); Globulin 3.2 gm/dl (1.3-3.2); Glucose 136 mg/dL (74-106); HDL Cholesterol 39 mg/dL (27-67); LDL Cholesterol 74 mg/dL (0-130); Potassium 5.5 mmoL/L (3.5-5.1); Sodium 141 mmol/L (136-145); Total Protein,Serum 7.8 gm/dL (6.4-8.2); Triglycerides 151 mg/dL (30-200); VLDL Cholesterol 30 mg/dL (0-40)
[2017-12-22 12:47] LABS: Hemoglobin A1C 6.4 % (0.0-7.0)
== END ==
PROVIDERS: PCP Internal Medicine Adolescent Medicine; Visit Provider Internal Medicine Adolescent Medicine
DX: E78.5 Hyperlipidemia, unspecified (principal); E11.9 Type 2 diabetes mellitus without complications; I10 Essential (primary) hypertension; M10.9 Gout, unspecified
CPT/HCPCS: 36415; 80053; 80061; 83036; 85025

== ENCOUNTER → 2018-01-24 07:34 | Outpatient (CLI) | payer BC, OTHER, SELFPAY ==
[2018-01-24 08:24] LABS: Basophils % 0.5 % (0.1-2.0); Eosinophils # 0.1 K/mm3 (0.0-0.4); Eosinophils % 1.6 % (0.1-12.0); Hematocrit 51.1 % (42.0-52.0); Hemoglobin 16.6 g/dL (14.1-18.0); Lymphocytes # 1.9 K/mm3 (0.7-4.5); Lymphocytes % 26.4 % (10-50); Mean Corpuscular HGB Conc 32.5 g/dL (31.8-35.4); Mean Corpuscular Hemoglobin 28.2 pg (27.0-31.2); Mean Corpuscular Volume 86.7 fl (80-94); Mean Platelet Volume 8.1 fl (7.4-10.4); Monocytes # 0.5 K/mm3 (0.1-1.0); Neutrophils # 4.7 K/mm3 (1.8-7.8); Neutrophils % 64.6 % (37.0-80.0); Platelet Count 149 K/mm3 (142-424); Red Cell Distribution Width 13.8 % (11.5-17.5); White Blood Count 7.2 K/mm3 (4.8-10.8)
[2018-01-24 08:33] LABS: Alanine Aminotransferase 39 U/L (12-78); Albumin/Globulin Ratio 1.1 (1.1-1.8); Alkaline Phosphatase 107 U/L (46-116); Aspartate Amino Transferase 15 U/L (15-37); Bilirubin,Total 0.6 mg/dL (0.2-1.0); Blood Urea Nitrogen 16 mg/dL (7-18); Calcium 9.2 mg/dL (8.5-10.1); Carbon Dioxide 29 mmol/L (21.0-32.0); Chloride 102 mmol/L (98-107); Estimated Glomerular Filt Rate 68 ml/min (>60); GFR (African American) 83 ML/MIN (>60); Globulin 3.6 gm/dl (1.3-3.2); Glucose 159 mg/dL (74-106); Sodium 140 mmol/L (136-145); Total Protein,Serum 7.6 gm/dL (6.4-8.2)
== END ==
PROVIDERS: PCP Internal Medicine Adolescent Medicine; Visit Provider Internal Medicine Adolescent Medicine
DX: N18.9 Chronic kidney disease, unspecified (principal)
CPT/HCPCS: 80053; 85025

== ENCOUNTER → 2018-02-16 08:41 | Outpatient (CLI) | payer BC, OTHER, SELFPAY ==
--- NOTE | 2018-02-16 08:44 | FL_ITS ---
FL barium enema air contrast exam CLINICAL INDICATION: Polyps, spastic colon ITS.REASON: history of polyps, spastic colon ORDERING PHYSICIAN: Florentin Velazquez MD PATIENT AGE: 62 years Comparison: None Fluoroscopy time: 4 minutes 2 seconds FINDINGS: Safety Investigator exam is unremarkable. The colon was visualized from rectum to cecum with double contrast technique. The appendix was filled. The terminal ileum was not filled. No significant spasm apparent There are numerous diverticula within the descending and sigmoid colon. No convincing evidence of diverticulitis. No fixed polypoid filling defects apparent. No annular constricting lesions. No mucosal boundaries. IMPRESSION: Diverticulosis of the descending and sigmoid colon otherwise negative double contrast barium enema
== END ==
PROVIDERS: PCP Internal Medicine Adolescent Medicine; Visit Provider Surgery
DX: K58.9 Irritable bowel syndrome, unspecified (principal); Z86.010 Personal history of colon polyps
CPT/HCPCS: 74270

== ENCOUNTER → 2018-03-17 07:16 | Outpatient (CLI) | payer BC, OTHER, SELFPAY ==
[2018-03-17 07:21] LABS: Microscopic, Urine URINE MICROSCOPIC (MICROSCOPIC)
[2018-03-17 07:51] LABS: Appearance,Urine CLEAR (Clear); Bilirubin,Urine Negative (Negative); Blood, Urine Negative (Negative); Color,Urine YELLOW (Yellow); Glucose,Urine (UA) 3+ (Negative); Ketones,Urine Negative (Negative); Leukocyte Esterase,Urine Negative (Negative); Nitrate,Urine Negative (Negative); Protein,Urine Negative (Negative); Urobilinogen,Urine 0.2 EU/dl (0.2)
[2018-03-17 08:29] LABS: Bacteria,Urine Trace /lpf; Mucus,Urine Trace /lpf; Squamous Epithelial Cell,Urine Occasional #/hpf (0-5); WBC,Urine Occasional #/hpf (0-3)
[2018-03-17 08:36] LABS: Basophils % 0.6 % (0.1-2.0); Eosinophils # 0.1 K/mm3 (0.0-0.4); Eosinophils % 2.1 % (0.1-12.0); Hematocrit 52.5 % (42.0-52.0); Hemoglobin 17.1 g/dL (14.1-18.0); Lymphocytes # 2.5 K/mm3 (0.7-4.5); Lymphocytes % 39.7 % (10-50); Mean Corpuscular HGB Conc 32.6 g/dL (31.8-35.4); Mean Corpuscular Hemoglobin 28.1 pg (27.0-31.2); Mean Corpuscular Volume 86.3 fl (80-94); Monocytes # 0.4 K/mm3 (0.1-1.0); Monocytes % 6.3 % (1.7-9.3); Neutrophils # 3.2 K/mm3 (1.8-7.8); Neutrophils % 51.3 % (37.0-80.0); Platelet Count 184 K/mm3 (142-424); Red Blood Count 6.09 M/mm3 (4.60-6.20); Red Cell Distribution Width 13.8 % (11.5-17.5); White Blood Count 6.2 K/mm3 (4.8-10.8)
[2018-03-17 08:41] LABS: Creatinine,Urine Random 73 mg/dL (20-320); Total Protein,Urine Random 8.9 mg/dL (0.0-11.9)
[2018-03-17 10:19] LABS: Albumin Level 4.2 gm/dL (3.4-5.0); Anion Gap 12.9 mEq/L (5-15); Blood Urea Nitrogen 19 mg/dL (7-18); Calcium 9.1 mg/dL (8.5-10.1); Carbon Dioxide 27 mmol/L (21.0-32.0); Chloride 102 mmol/L (98-107); Creatinine,Serum 0.98 mg/dL (0.70-1.30); Estimated Glomerular Filt Rate 78 ml/min (>60); GFR (African American) 94 ML/MIN (>60); Glucose 148 mg/dL (74-106); Phosphorous 4.2 mg/dL (2.4-4.9); Potassium 3.9 mmoL/L (3.5-5.1); Sodium 138 mmol/L (136-145)
[2018-03-18 11:20] LABS: Microalbumin, Urine 4.6 ug/mL (Not Estab.)
== END ==
PROVIDERS: Visit Provider Internal Medicine Nephrology
DX: N17.9 Acute kidney failure, unspecified (principal)
CPT/HCPCS: 36415; 80069; 81001; 82043; 82570; 84155; 85025

== ENCOUNTER → 2018-03-31 07:09 | Outpatient (CLI) | payer BC, OTHER, SELFPAY ==
[2018-03-31 07:58] LABS: Hemoglobin A1C 7.3 % (0.0-7.0)
[2018-03-31 08:04] LABS: Anion Gap 14.4 mEq/L (5-15); Blood Urea Nitrogen 21 mg/dL (7-18); Calcium 9.7 mg/dL (8.5-10.1); Carbon Dioxide 26 mmol/L (21.0-32.0); Chloride 103 mmol/L (98-107); Estimated Glomerular Filt Rate 68 ml/min (>60); GFR (African American) 83 ML/MIN (>60); Glucose 162 mg/dL (74-106); Potassium 4.4 mmoL/L (3.5-5.1); Sodium 139 mmol/L (136-145)
== END ==
PROVIDERS: Visit Provider Internal Medicine Adolescent Medicine
DX: E11.9 Type 2 diabetes mellitus without complications (principal); I10 Essential (primary) hypertension
CPT/HCPCS: 36415; 80048; 83036

== ENCOUNTER → 2018-04-07 08:09 | Outpatient (CLI) | payer BC, OTHER, SELFPAY ==
[2018-04-07 09:40] LABS: Albumin Level 4.4 gm/dL (3.4-5.0); Anion Gap 13.4 mEq/L (5-15); Blood Urea Nitrogen 26 mg/dL (7-18); Calcium 9.6 mg/dL (8.5-10.1); Carbon Dioxide 28 mmol/L (21.0-32.0); Chloride 102 mmol/L (98-107); Creatinine,Serum 1.19 mg/dL (0.70-1.30); Estimated Glomerular Filt Rate 62 ml/min (>60); GFR (African American) 75 ML/MIN (>60); Glucose 120 mg/dL (74-106); Phosphorous 4.1 mg/dL (2.4-4.9); Potassium 4.4 mmoL/L (3.5-5.1); Sodium 139 mmol/L (136-145)
== END ==
PROVIDERS: Visit Provider Internal Medicine Nephrology
DX: N17.9 Acute kidney failure, unspecified (principal)
CPT/HCPCS: 36415; 80048; 80069

== ENCOUNTER 2018-04-23 08:00 | Outpatient (RCR) | payer BC, OTHER, SELFPAY | END 2018-04-23 08:05 | disposition home or self-care (01) | LOC: OT 08:00 | PROVIDERS: Visit Provider Orthopaedic Surgery Hand Surgery | DX: M72.0 Palmar fascial fibromatosis [Dupuytren] (principal) | CPT/HCPCS: 97110; 97140; 97165 ==

== ENCOUNTER → 2018-06-14 12:57 | Outpatient (CLI) | payer BC, OTHER, SELFPAY | PROVIDERS: PCP Internal Medicine Adolescent Medicine; Visit Provider Nurse Practitioner Family | DX: R06.81 Apnea, not elsewhere classified (principal); R06.83 Snoring; G47.33 Obstructive sleep apnea (adult) (pediatric) | CPT/HCPCS: G0399 ==

== ENCOUNTER → 2018-06-15 07:37 | Outpatient (CLI) | payer BC, OTHER, SELFPAY ==
--- NOTE | 2018-06-15 07:38 | CT_ITS ---
CT heart w calcium score INDICATION: Hypertension, abnormal EKG ITS.REASON: t ORDERING PHYSICIAN: Hardy Graham MD PATIENT AGE: 62 years COMPARISON: None TECHNIQUE: Axial images are obtained without contrast. Sagittal and coronal reformatted images are reviewed as well. All CT scans at the facility use one or more dose reduction, viz: automated exposure control, ma/kV adjustment per patient size (including targeted exams where dose is matched to indication, i.e. head), or iterative reconstruction technique. FINDINGS: Coronary artery calcium score is abnormal at 413 indicating extensive plaque burden and very high cardiovascular disease risk. Calcification is noted at the bifurcation of the left main, LAD, circumflex, and RCA. IMPRESSION: Extensive calcific plaque burden with very high cardiovascular disease risk
== END ==
PROVIDERS: PCP Internal Medicine Adolescent Medicine; Visit Provider Internal Medicine Cardiovascular Disease
DX: E78.2 Mixed hyperlipidemia (principal); I10 Essential (primary) hypertension; Z82.49 Family history of ischemic heart disease and other diseases of the circulatory system
CPT/HCPCS: 75571

== ENCOUNTER → 2018-06-21 07:01 | Outpatient (CLI) | payer BC, OTHER, SELFPAY ==
--- NOTE | 2018-06-21 07:03 | NM_ITS ---
SPECT MYOCARDIAL PERFUSION SCAN, REST AND STRESS: EXERCISE STRESS: [facility] REVIEW QGS EF AND WALL MOTION EVALUATION: QPS - PERFUSION EVALUATION: HISTORY: Chest pain, HTN, DM, Family history, CAD PROCEDURE: Rest imaging performed after administration of10.29 millicuries Tc MIBI. Dose administered at7:15 a.m., with imaging thereafter. Stress imaging was then performed following9 minutes 22 seconds of exercise stress. The patient achieved a heart [id number] with projected heart rate of136 . Resting BP137/76 with stress 155/86. At maximum exercise stress,32.4 millicuries Tc MIBI administered at8:30 a.m. with [id number] minutes thereafter. FINDINGS: Perfusion Evaluation: The single slice spect images as well as the [facility] bull's-eye data summary were reviewed. Wall Motion and Ejection Fraction Evaluation: Gated SPECT review and analysis used to evaluate these features. There is a 50 % left ventricular ejection fraction. There seems to be good wall motion Stress images reveal mildly decreased activity in the apex while rest images reveal uniform myocardial activity. Gated images calculated ejection fraction of 50% motion IMPRESSION: Apical ischemia. Normal ejection fraction normal wall motion. Critical correlation is advised
--- NOTE | 2018-06-21 07:16 | HMH.ITSHM ---
Current Home Medications as stated by this patient Gene Jeyson Benavidez or field marketing representative. []LISINOPRIL JANUVIA FARXIGA METFORMIN ALLOPURINAOL NIFEDIPINE ROSUVASTATIN CALCIUM SENOKOT
== END ==
PROVIDERS: PCP Internal Medicine Adolescent Medicine; Visit Provider Internal Medicine Cardiovascular Disease
DX: E78.2 Mixed hyperlipidemia (principal); I10 Essential (primary) hypertension; E11.9 Type 2 diabetes mellitus without complications; Z79.84 Long term (current) use of oral hypoglycemic drugs; Z82.49 Family history of ischemic heart disease and other diseases of the circulatory system
CPT/HCPCS: 78452; 93017; 93306; A9502

== ENCOUNTER → 2018-06-29 08:05 | Outpatient (CLI) | payer BC, OTHER, SELFPAY ==
[2018-06-29 08:37] LABS: Basophils % 0.6 % (0.1-2.0); Eosinophils # 0.1 K/mm3 (0.0-0.4); Hematocrit 49.4 % (42.0-52.0); Hemoglobin 16.8 g/dL (14.1-18.0); Lymphocytes # 1.8 K/mm3 (0.7-4.5); Lymphocytes % 28.2 % (10-50); Mean Corpuscular Hemoglobin 29.6 pg (27.0-31.2); Mean Corpuscular Volume 86.9 fl (80-94); Mean Platelet Volume 8.4 fl (7.4-10.4); Monocytes # 0.4 K/mm3 (0.1-1.0); Neutrophils # 4.1 K/mm3 (1.8-7.8); Neutrophils % 63.2 % (37.0-80.0); Platelet Count 171 K/mm3 (142-424); Red Blood Count 5.68 M/mm3 (4.60-6.20); Red Cell Distribution Width 13.4 % (11.5-17.5); White Blood Count 6.5 K/mm3 (4.8-10.8)
[2018-06-29 09:59] LABS: Alanine Aminotransferase 46 U/L (12-78); Albumin Level 4.4 gm/dL (3.4-5.0); Albumin/Globulin Ratio 1.4 (1.1-1.8); Alkaline Phosphatase 97 U/L (46-116); Anion Gap 13.7 mEq/L (5-15); Aspartate Amino Transferase 20 U/L (15-37); Bilirubin,Total 0.7 mg/dL (0.2-1.0); Blood Urea Nitrogen 21 mg/dL (7-18); Calcium 9.7 mg/dL (8.5-10.1); Carbon Dioxide 28 mmol/L (21.0-32.0); Chloride 104 mmol/L (98-107); Chol/HDL Ratio 4.4 (1-3.5); Cholesterol 135 mg/dL (140-200); Estimated Glomerular Filt Rate 68 ml/min (>60); GFR (African American) 83 ML/MIN (>60); Globulin 3.1 gm/dl (1.3-3.2); Glucose 129 mg/dL (74-106); HDL Cholesterol 31 mg/dL (27-67); LDL Cholesterol 73 mg/dL (0-130); Potassium 4.7 mmoL/L (3.5-5.1); Sodium 141 mmol/L (136-145); Total Protein,Serum 7.5 gm/dL (6.4-8.2); Triglycerides 154 mg/dL (30-200); VLDL Cholesterol 31 mg/dL (0-40)
[2018-06-29 17:00] LABS: Hemoglobin A1C 6.6 % (0.0-7.0)
== END ==
PROVIDERS: Visit Provider Internal Medicine Adolescent Medicine
DX: E78.5 Hyperlipidemia, unspecified (principal); E11.9 Type 2 diabetes mellitus without complications; N18.9 Chronic kidney disease, unspecified; I10 Essential (primary) hypertension; Z79.84 Long term (current) use of oral hypoglycemic drugs
CPT/HCPCS: 36415; 80053; 80061; 83036; 85025

== ENCOUNTER → 2018-07-15 07:30 | Outpatient (CLI) | payer BC, OTHER, SELFPAY ==
[2018-07-15 09:00] LABS: Anion Gap 13.4 mEq/L (5-15); Blood Urea Nitrogen 16 mg/dL (7-18); Calcium 9.1 mg/dL (8.5-10.1); Carbon Dioxide 27 mmol/L (21.0-32.0); Chloride 102 mmol/L (98-107); Creatinine,Serum 1.12 mg/dL (0.70-1.30); Estimated Glomerular Filt Rate 67 ml/min (>60); GFR (African American) 81 ML/MIN (>60); Glucose 147 mg/dL (74-106); Potassium 4.4 mmoL/L (3.5-5.1); Sodium 138 mmol/L (136-145)
== END ==
PROVIDERS: Visit Provider Internal Medicine
DX: Z98.890 Other specified postprocedural states (principal)
CPT/HCPCS: 36415; 80048

== ENCOUNTER → 2018-09-17 07:07 | Outpatient (CLI) | payer BC, OTHER, SELFPAY ==
[2018-09-17 07:14] LABS: Microscopic, Urine URINE MICROSCOPIC (MICROSCOPIC)
[2018-09-17 07:53] LABS: Basophils % 0.5 % (0.1-2.0); Eosinophils # 0.1 K/mm3 (0.0-0.4); Eosinophils % 1.6 % (0.1-12.0); Hemoglobin 15.5 g/dL (14.1-18.0); Lymphocytes # 2.1 K/mm3 (0.7-4.5); Lymphocytes % 28.9 % (10-50); Mean Corpuscular HGB Conc 32.2 g/dL (31.8-35.4); Mean Corpuscular Hemoglobin 27.9 pg (27.0-31.2); Mean Corpuscular Volume 86.6 fl (80-94); Monocytes # 0.5 K/mm3 (0.1-1.0); Monocytes % 6.7 % (1.7-9.3); Neutrophils # 4.6 K/mm3 (1.8-7.8); Neutrophils % 62.4 % (37.0-80.0); Platelet Count 184 K/mm3 (142-424); Red Blood Count 5.55 M/mm3 (4.60-6.20); Red Cell Distribution Width 13.3 % (11.5-17.5); White Blood Count 7.4 K/mm3 (4.8-10.8)
[2018-09-17 09:28] LABS: Albumin Level 4.3 gm/dL (3.4-5.0); Blood Urea Nitrogen 28 mg/dL (7-18); Calcium 9.6 mg/dL (8.5-10.1); Carbon Dioxide 28 mmol/L (21.0-32.0); Chloride 102 mmol/L (98-107); Creatinine,Serum 1.38 mg/dL (0.70-1.30); Estimated Glomerular Filt Rate 53 ml/min (>60); GFR (African American) 64 ML/MIN (>60); Glucose 116 mg/dL (74-106); Sodium 137 mmol/L (136-145); Uric Acid 6.9 mg/dL (2.6-7.2)
[2018-09-17 12:08] LABS: Appearance,Urine CLEAR (Clear); Bilirubin,Urine Negative (Negative); Blood, Urine Negative (Negative); Color,Urine YELLOW (Yellow); Glucose,Urine (UA) 3+ (Negative); Ketones,Urine Negative (Negative); Leukocyte Esterase,Urine Negative (Negative); Nitrate,Urine Negative (Negative); Protein,Urine Negative (Negative); Urobilinogen,Urine 0.2 EU/dl (0.2)
[2018-09-17 12:24] LABS: Creatinine,Urine Random 103 mg/dL (20-320); Total Protein,Urine Random 10.3 mg/dL (0.0-11.9)
[2018-09-17 15:21] LABS: Bacteria,Urine Trace /lpf
== END ==
PROVIDERS: Visit Provider Internal Medicine Nephrology
DX: N17.9 Acute kidney failure, unspecified (principal)
CPT/HCPCS: 36415; 80069; 81001; 82570; 84155; 84550; 85025

== ENCOUNTER → 2018-09-29 14:27 | Outpatient (POV) | payer BC, OTHER, SELFPAY | DX: Z00.00 Encounter for general adult medical examination without abnormal findings (principal) ==

== ENCOUNTER → 2018-10-29 07:44 | Outpatient (CLI) | payer BC, OTHER, SELFPAY ==
[2018-10-29 09:33] LABS: Basophils % 0.4 % (0.1-2.0); Eosinophils # 0.2 K/mm3 (0.0-0.4); Hemoglobin 16.5 g/dL (14.1-18.0); Lymphocytes # 2.2 K/mm3 (0.7-4.5); Lymphocytes % 29.4 % (10-50); Mean Corpuscular HGB Conc 32.4 g/dL (31.8-35.4); Mean Corpuscular Hemoglobin 29.1 pg (27.0-31.2); Mean Corpuscular Volume 89.9 fl (80-94); Mean Platelet Volume 8.1 fl (7.4-10.4); Monocytes # 0.5 K/mm3 (0.1-1.0); Monocytes % 6.5 % (1.7-9.3); Neutrophils # 4.7 K/mm3 (1.8-7.8); Neutrophils % 61.7 % (37.0-80.0); Platelet Count 202 K/mm3 (142-424); Red Blood Count 5.68 M/mm3 (4.60-6.20); Red Cell Distribution Width 13.3 % (11.5-17.5); White Blood Count 7.6 K/mm3 (4.8-10.8)
[2018-10-29 10:56] LABS: Alanine Aminotransferase 43 U/L (12-78); Albumin Level 4.4 gm/dL (3.4-5.0); Albumin/Globulin Ratio 1.6 (1.1-1.8); Alkaline Phosphatase 81 U/L (46-116); Anion Gap 13.4 mEq/L (5-15); Aspartate Amino Transferase 22 U/L (15-37); Bilirubin,Total 0.6 mg/dL (0.2-1.0); Blood Urea Nitrogen 23 mg/dL (7-18); Calcium 9.2 mg/dL (8.5-10.1); Carbon Dioxide 25 mmol/L (21.0-32.0); Chloride 105 mmol/L (98-107); Chol/HDL Ratio 3.4 (1-3.5); Cholesterol 117 mg/dL (140-200); Creatinine,Serum 1.02 mg/dL (0.70-1.30); Estimated Glomerular Filt Rate 74 ml/min (>60); GFR (African American) 90 ML/MIN (>60); Globulin 2.7 gm/dl (1.3-3.2); Glucose 104 mg/dL (74-106); HDL Cholesterol 34 mg/dL (27-67); LDL Cholesterol 66 mg/dL (0-130); Potassium 4.4 mmoL/L (3.5-5.1); Sodium 139 mmol/L (136-145); Total Protein,Serum 7.1 gm/dL (6.4-8.2); Triglycerides 85 mg/dL (30-200); Uric Acid 6.8 mg/dL (2.6-7.2); VLDL Cholesterol 17 mg/dL (0-40)
[2018-10-29 11:24] LABS: Hemoglobin A1C 6.5 % (0.0-7.0)
== END ==
PROVIDERS: Visit Provider Internal Medicine Adolescent Medicine
DX: E78.5 Hyperlipidemia, unspecified (principal); E11.9 Type 2 diabetes mellitus without complications; N18.9 Chronic kidney disease, unspecified; M10.9 Gout, unspecified; Z79.84 Long term (current) use of oral hypoglycemic drugs
CPT/HCPCS: 36415; 80053; 80061; 83036; 84550; 85025

== ENCOUNTER → 2019-01-19 13:27 | Outpatient (POV) | payer BC, OTHER, SELFPAY | DX: Z00.00 Encounter for general adult medical examination without abnormal findings (principal) ==

== ENCOUNTER → 2019-02-21 07:40 | Outpatient (CLI) | payer BC, OTHER, SELFPAY ==
[2019-02-21 07:46] LABS: Microscopic, Urine URINE MICROSCOPIC (MICROSCOPIC)
[2019-02-21 08:14] LABS: Appearance,Urine CLEAR (Clear); Bilirubin,Urine Negative (Negative); Blood, Urine Negative (Negative); Color,Urine YELLOW (Yellow); Glucose,Urine (UA) 3+ (Negative); Ketones,Urine Negative (Negative); Leukocyte Esterase,Urine Negative (Negative); Nitrate,Urine Negative (Negative); PH,Urine 5.5 (5.0-8.5); Protein,Urine Negative (Negative); Urobilinogen,Urine 0.2 EU/dl (0.2)
[2019-02-21 08:27] LABS: Creatinine,Urine Random 102 mg/dL (20-320); Total Protein,Urine Random 9.3 mg/dL (0.0-11.9)
[2019-02-21 09:11] LABS: Basophils % 0.4 % (0.1-2.0); Eosinophils # 0.1 K/mm3 (0.0-0.4); Eosinophils % 2.4 % (0.1-12.0); Hematocrit 48.8 % (42.0-52.0); Hemoglobin 16.1 g/dL (14.1-18.0); Lymphocytes # 1.7 K/mm3 (0.7-4.5); Lymphocytes % 28.7 % (10-50); Mean Corpuscular Hemoglobin 28.8 pg (27.0-31.2); Mean Corpuscular Volume 87.2 fl (80-94); Mean Platelet Volume 8.3 fl (7.4-10.4); Monocytes # 0.3 K/mm3 (0.1-1.0); Monocytes % 5.4 % (1.7-9.3); Neutrophils # 3.6 K/mm3 (1.8-7.8); Neutrophils % 63.2 % (37.0-80.0); Platelet Count 168 K/mm3 (142-424); Red Blood Count 5.59 M/mm3 (4.60-6.20); Red Cell Distribution Width 13.2 % (11.5-17.5); White Blood Count 5.8 K/mm3 (4.8-10.8)
[2019-02-21 09:39] LABS: Albumin Level 4.2 gm/dL (3.4-5.0); Anion Gap 15.3 mEq/L (5-15); Blood Urea Nitrogen 19 mg/dL (7-18); Calcium 8.9 mg/dL (8.5-10.1); Carbon Dioxide 27 mmol/L (21.0-32.0); Chloride 102 mmol/L (98-107); Creatinine,Serum 1.09 mg/dL (0.70-1.30); Estimated Glomerular Filt Rate 69 ml/min (>60); Ferritin 89 ng/mL (8-388); GFR (African American) 83 ML/MIN (>60); Glucose 144 mg/dL (74-106); Phosphorous 3.9 mg/dL (2.4-4.9); Potassium 4.3 mmoL/L (3.5-5.1); Sodium 140 mmol/L (136-145); Uric Acid 5.9 mg/dL (2.6-7.2)
[2019-02-22 08:12] LABS: Iron 138 ug/dL (38-169); UIBC 229 ug/dL (111-343)
[2019-02-22 16:46] LABS: Iron Saturation 38 % (15-55); Parathyroid Hormone Intact 13 pg/mL (15-65); Vitamin D 25 Hydroxy 27.7 ng/mL (30.0-100.0)
== END ==
PROVIDERS: Visit Provider Internal Medicine Nephrology
DX: N18.3 Chronic kidney disease, stage 3 (moderate) (principal); E55.9 Vitamin D deficiency, unspecified
CPT/HCPCS: 36415; 80069; 81001; 82330; 82570; 82652; 82728; 83540; 83550; 83970; 84155; 84550; 85025

== ENCOUNTER → 2019-02-25 07:17 | Outpatient (CLI) | payer BC, OTHER, SELFPAY ==
[2019-02-25 08:45] LABS: Chol/HDL Ratio 3.5 (1-3.5); Cholesterol 125 mg/dL (140-200); HDL Cholesterol 36 mg/dL (27-67); LDL Cholesterol 57 mg/dL (0-130); Triglycerides 160 mg/dL (30-200); VLDL Cholesterol 32 mg/dL (0-40)
[2019-02-25 10:04] LABS: Hemoglobin A1C 6.8 % (0.0-7.0)
== END ==
PROVIDERS: Visit Provider Internal Medicine Adolescent Medicine
DX: E78.5 Hyperlipidemia, unspecified (principal); E11.9 Type 2 diabetes mellitus without complications; Z79.84 Long term (current) use of oral hypoglycemic drugs
CPT/HCPCS: 36415; 80061; 83036

== ENCOUNTER → 2019-06-22 07:12 | Outpatient (CLI) | payer BC, SELFPAY ==
[2019-06-22 07:54] LABS: Basophils % 0.5 % (0.1-2.0); Eosinophils # 0.2 K/mm3 (0.0-0.4); Eosinophils % 2.7 % (0.1-12.0); Hematocrit 50.6 % (42.0-52.0); Hemoglobin 16.7 g/dL (14.1-18.0); Lymphocytes # 2.2 K/mm3 (0.7-4.5); Lymphocytes % 31.6 % (10-50); Mean Corpuscular HGB Conc 32.9 g/dL (31.8-35.4); Mean Corpuscular Hemoglobin 28.8 pg (27.0-31.2); Mean Corpuscular Volume 87.3 fl (80-94); Mean Platelet Volume 8.7 fl (7.4-10.4); Monocytes # 0.4 K/mm3 (0.1-1.0); Monocytes % 5.7 % (1.7-9.3); Neutrophils # 4.1 K/mm3 (1.8-7.8); Neutrophils % 59.5 % (37.0-80.0); Platelet Count 182 K/mm3 (142-424); Red Blood Count 5.79 M/mm3 (4.60-6.20); Red Cell Distribution Width 13.3 % (11.5-17.5); White Blood Count 6.8 K/mm3 (4.8-10.8)
[2019-06-22 08:10] LABS: Hemoglobin A1C 7.3 % (4.0-6.0)
[2019-06-22 09:04] LABS: Chloride 100 mmol/L (98-107); Potassium 4.7 mmoL/L (3.5-5.1); Sodium 137 mmol/L (136-145)
[2019-06-22 09:07] LABS: Alanine Aminotransferase 31 U/L (12-78); Albumin Level 4.8 g/dl (3.5-5.0); Albumin/Globulin Ratio 1.9 (1.1-1.8); Alkaline Phosphatase 74 U/L (38-126); Anion Gap 14.7 mEq/L (5-15); Aspartate Amino Transferase 32 U/L (17-59); Bilirubin,Total 0.7 mg/dl (0.2-1.3); Blood Urea Nitrogen 20 mg/dl (9-20); Carbon Dioxide 27 mmol/L (22.0-30.0); Cholesterol 133 mg/dl (140-200); Estimated Glomerular Filt Rate 76 ml/min (>60); GFR (African American) 92 ML/MIN (>60); Globulin 2.5 g/dL (1.3-3.2); Total Protein,Serum 7.3 g/dl (6.3-8.2); Triglycerides 238 mg/dl (30-150); VLDL Cholesterol 48 mg/dL (0-40)
[2019-06-22 09:08] LABS: Calcium 9.9 mg/dl (8.4-10.2); Chol/HDL Ratio 4.3 (1-3.5); Glucose 137 mg/dl (74-100); HDL Cholesterol 31 mg/dl (40-60)
[2019-06-22 09:19] LABS: Direct LDL Cholesterol 73.09 mg/dL (100-129)
== END ==
PROVIDERS: Visit Provider Internal Medicine Adolescent Medicine
DX: E78.5 Hyperlipidemia, unspecified (principal); E11.9 Type 2 diabetes mellitus without complications; Z79.84 Long term (current) use of oral hypoglycemic drugs
CPT/HCPCS: 36415; 80053; 80061; 83036; 85025

== ENCOUNTER → 2019-07-26 08:59 | Outpatient (CLI) | payer BC, SELFPAY ==
--- NOTE | 2019-07-26 09:25 | ECG_ITS ---
APPROVED REPORT Exam: Resting ECG HR:63 bpm ECG Measurements Heart Rate 63 AXES IL 160 P 9 QRSd 118 QRS -26 QT 408 T -6 QTc 417 <Conclusion> Normal sinus rhythm Right bundle branch block Abnormal ECG Electronically signed by : Sacha Dickson, 07/27/2019 08:27:28
[2019-07-26 09:34] LABS: Basophils % 0.6 % (0.1-2.0); Eosinophils # 0.2 K/mm3 (0.0-0.4); Eosinophils % 2.5 % (0.1-12.0); Hematocrit 46.3 % (42.0-52.0); Hemoglobin 15.4 g/dL (14.1-18.0); Lymphocytes # 2.3 K/mm3 (0.7-4.5); Lymphocytes % 32.6 % (10-50); Mean Corpuscular HGB Conc 33.2 g/dL (31.8-35.4); Mean Corpuscular Hemoglobin 28.8 pg (27.0-31.2); Mean Corpuscular Volume 86.8 fl (80-94); Monocytes # 0.4 K/mm3 (0.1-1.0); Monocytes % 5.1 % (1.7-9.3); Neutrophils # 4.1 K/mm3 (1.8-7.8); Neutrophils % 59.2 % (37.0-80.0); Platelet Count 175 K/mm3 (142-424); Red Blood Count 5.33 M/mm3 (4.60-6.20); Red Cell Distribution Width 13.7 % (11.5-17.5); White Blood Count 6.9 K/mm3 (4.8-10.8)
[2019-07-26 10:09] LABS: Anion Gap 13.5 mEq/L (5-15); Blood Urea Nitrogen 16 mg/dl (9-20); Calcium 9.8 mg/dl (8.4-10.2); Carbon Dioxide 25 mmol/L (22.0-30.0); Chloride 103 mmol/L (98-107); Estimated Glomerular Filt Rate 86 ml/min (>60); GFR (African American) 104 ML/MIN (>60); Glucose 138 mg/dl (74-100); Potassium 4.5 mmoL/L (3.5-5.1); Sodium 137 mmol/L (136-145)
[2019-07-27 16:08] LABS: Covid-19 Nasal PCR Sendout Lex NOT DETECTED
== END ==
PROVIDERS: Visit Provider Otolaryngology
DX: Z01.818 Encounter for other preprocedural examination (principal); K13.21 Leukoplakia of oral mucosa, including tongue
CPT/HCPCS: 36415; 80048; 85025; 93005; U0004

== ENCOUNTER 2019-07-28 09:29 | Day surgery (SDC) | payer BC, SELFPAY ==
[2019-07-27 10:25] VITALS: BMI 31.8
[2019-07-28] VITALS (11 sets, daily range): BP systolic 102–108; BP diastolic 60–72; PULSE 61–93; RESP 15–18; TEMP 36.1–36.4; O2SAT 94–96
[2019-07-28 10:18] LABS: POC Glucose,Bedside 135 (70-110)
--- NOTE | 2019-07-28 10:24 | P.PN_ITS ---
[facility] Anesthesia Checklist - Patient Identification Patient Identification: Arm Band, Verbal (Name & ) - Structural Data Admitted From: Home Planned Operative Procedure/s: Excision of leukoplakia left buccal cavity Consent for Planned Operative Procedure(s) Verified: Yes Verified Documents: Surgical Consent, History and Physical - NPO Status Verified Time NPO: 22:00 - Chart Verification Results Verified: CBC, BMP - Additional verifications Anesthesia Reactions: No Hx Blood Transfusions: No Blood Transfusion Reaction: No - Airway Assessment C-Spine Mobility Assessed: Yes TMJ Mobility Assessed: Yes Dentition: Good Dentition - Neurological Assessment Level of Consciousness: Awake, Alert, Appropriate, Follows Commands Hx Seizures: No Numbness or tingling in extremities: No - Anesthesia Plan Anesthesia Risk discussed: Yes Anesthesia Plan: Verified ASA Class: III Anesthesia Type: General [facility] History I have reviewed the patient's past medical history: Yes Medical History: Reports:: Diabetes Mellitus Type 2, Hyperlipidemia, Hypertension, Palpitations, Renal Disease Denies:: Cancer, Diabetes Mellitus Type 1, Internal Pacemaker, Lung Disease, MRSA, Seizures *Have you ever received a pneumonia vaccine?: Yes *Have you received a flu vaccine this season?: Yes Other Medical History: Denies: Blood Transfusion Reaction Comment:: obesity Anesthesia experience/problems:: None Laterality Cases: Left: Arthroscopy Knee Other Surgeries: Yes: Cardiac Catheterization, Other (anal abscess, bilateral hands, nose,). No: Pacemaker Amputation: No Fractures: No - *Social History Educational Level: Completed High School Smoking Status: Never smoker Tobacco Type: smokeless tobacco #Yrs smoked (if former smoker): 20 Alcohol Intake: never Alcohol Intake Frequency:: other Substance Use Type: denies use *Occupational Status:: retired Housing: house Household Members: spouse *Travel in the last 8 weeks: None Family Hx:: Cancer, Coronary Artery Disease, Heart Attack
--- NOTE | 2019-07-28 11:29 | P.PN_ITS ---
[facility] Anesthesia Record Part I Intake, IV Amount: 700 Estimated blood loss (mL): 1 Urine output (mL): 0 (NM) Blood Products used (#): none Blood Pressure: 105/62 SaO2: 94 Pulse Rate: 93 Respiratory Rate: 15 Temperature: 97.6 F Patient is:: Awake, Stable Stable to PACU at:: 11:25
[2019-07-28 11:39] LABS: POC Glucose,Bedside 118 (70-110)
--- NOTE | 2019-07-28 12:06 | PC.NURSE ---
1137-checked pt's fsbs with results of 118 1154-detailed report called to KIRAN Austin 1157-pt transported to post op via stretcher with vonda rails up and left in care of KIRAN Austin with bed locked in lowest position, vss, pt stable
--- NOTE | 2019-07-28 13:26 | P.PN_ITS ---
[facility] Anesthesia Record Part II Discharge Time: 12:00 Destination: Home PACU nurse assessment reviewed?: Yes Patient Condition:: Good Anesthesia Complications:: None Swallowing reflex intact?: Yes Cyanosis?: No Blood Pressure: 106/67 Pulse Rate: 67 Temperature: 97 F Mental Status: Alert & Oriented Pain level:: 0 Nausea and/or vomitting:: None Intake, IV Amount: 0
--- NOTE | 2019-07-28 13:39 | P.OP_ITS ---
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 [place] retractors were used in order to expose the lesion in the left buccal cavity. The shame[place] out was incised and the lesion was excised and submitted. It measured over 3.5 cm in length. Flaps were elevated and a repair was done of the defect with 4-0 nylon sutures. Bleeding had been stopped with bipolar cautery, blood loss was less than 10 cc. The patient tolerated the procedure well and was sent to make recovery in good general condition. Condition: stable Disposition: PACU Complications:: none
== END 2019-07-28 12:28 | disposition home or self-care (01) ==
PROVIDERS: PCP Internal Medicine Adolescent Medicine; Visit Provider Otolaryngology
PROC: (CPT 40812; principal; 2019-07-28 11:00)
DX: K13.21 Leukoplakia of oral mucosa, including tongue (principal); F17.229 Nicotine dependence, chewing tobacco, with unspecified nicotine-induced disorders; E11.9 Type 2 diabetes mellitus without complications; Z79.84 Long term (current) use of oral hypoglycemic drugs; I10 Essential (primary) hypertension; Z79.82 Long term (current) use of aspirin; Z88.8 Allergy status to other drugs, medicaments and biological substances
CPT/HCPCS: 40812; 82962; 96374; J2405

== ENCOUNTER → 2019-08-23 07:24 | Outpatient (CLI) | payer BC, SELFPAY ==
[2019-08-23 07:32] LABS: Microscopic, Urine URINE MICROSCOPIC (MICROSCOPIC)
[2019-08-23 08:12] LABS: Basophils % 0.5 % (0.1-2.0); Eosinophils # 0.2 K/mm3 (0.0-0.4); Eosinophils % 2.3 % (0.1-12.0); Hematocrit 43.5 % (42.0-52.0); Hemoglobin 14.9 g/dL (14.1-18.0); Lymphocytes # 1.8 K/mm3 (0.7-4.5); Lymphocytes % 28.8 % (10-50); Mean Corpuscular HGB Conc 34.2 g/dL (31.8-35.4); Mean Corpuscular Hemoglobin 30.7 pg (27.0-31.2); Mean Corpuscular Volume 89.7 fl (80-94); Mean Platelet Volume 8.3 fl (7.4-10.4); Monocytes # 0.4 K/mm3 (0.1-1.0); Neutrophils % 62.4 % (37.0-80.0); Platelet Count 169 K/mm3 (142-424); Red Blood Count 4.85 M/mm3 (4.60-6.20); Red Cell Distribution Width 13.6 % (11.5-17.5); White Blood Count 6.3 K/mm3 (4.8-10.8)
[2019-08-23 08:22] LABS: Appearance,Urine CLEAR (Clear); Bilirubin,Urine Negative (Negative); Blood, Urine Negative (Negative); Color,Urine YELLOW (Yellow); Glucose,Urine (UA) Negative (Negative); Ketones,Urine Negative (Negative); Leukocyte Esterase,Urine Negative (Negative); Nitrate,Urine Negative (Negative); Protein,Urine Negative (Negative); Specific Gravity, Urine 1.025 (1.005-1.030); Urobilinogen,Urine 0.2 EU/dl (0.2)
[2019-08-23 08:37] LABS: Creatinine,Urine Random 146 mg/dL (Not Estab.)
[2019-08-23 08:44] LABS: Albumin Level 4.1 g/dl (3.5-5.0); Chloride 103 mmol/L (98-107); Potassium 4.8 mmoL/L (3.5-5.1); Sodium 137 mmol/L (136-145)
[2019-08-23 08:47] LABS: Anion Gap 9.8 mEq/L (5-15); Blood Urea Nitrogen 19 mg/dl (9-20); Carbon Dioxide 29 mmol/L (22.0-30.0); Estimated Glomerular Filt Rate 68 ml/min (>60); GFR (African American) 82 ML/MIN (>60); Phosphorous 3.2 mg/dl (2.5-4.5)
[2019-08-23 08:48] LABS: Calcium 8.8 mg/dl (8.4-10.2); Glucose 159 mg/dl (74-100)
[2019-08-23 08:57] LABS: Squamous Epithelial Cell,Urine Occasional #/hpf (0-5); WBC,Urine Occasional #/hpf (0-3)
[2019-08-23 13:03] LABS: 25-OH Vitamin D, Total 46.3 ng/mL (30-100)
== END ==
PROVIDERS: Visit Provider Internal Medicine Nephrology
DX: N18.3 Chronic kidney disease, stage 3 (moderate) (principal)
CPT/HCPCS: 36415; 80069; 81001; 82306; 82570; 84155; 85025

== ENCOUNTER → 2019-11-25 08:53 | Outpatient (CLI) | payer MEDICARE, BC, SELFPAY ==
[2019-11-25 10:07] LABS: Hemoglobin A1C 7.1 % (4.0-6.0)
[2019-11-25 10:32] LABS: Alanine Aminotransferase 41 U/L (12-78); Albumin Level 4.5 g/dl (3.5-5.0); Albumin/Globulin Ratio 1.7 (1.1-1.8); Alkaline Phosphatase 78 U/L (38-126); Anion Gap 10.8 mEq/L (5-15); Aspartate Amino Transferase 39 U/L (17-59); Bilirubin,Total 0.7 mg/dl (0.2-1.3); Blood Urea Nitrogen 19 mg/dl (9-20); Calcium 10.1 mg/dl (8.4-10.2); Carbon Dioxide 30 mmol/L (22.0-30.0); Chloride 103 mmol/L (98-107); Chol/HDL Ratio 3.6 (1-3.5); Cholesterol 138 mg/dl (140-200); Estimated Glomerular Filt Rate 68 ml/min (>60); GFR (African American) 82 ML/MIN (>60); Globulin 2.6 g/dL (1.3-3.2); Glucose 149 mg/dl (74-100); HDL Cholesterol 38 mg/dl (40-60); Potassium 4.8 mmoL/L (3.5-5.1); Sodium 139 mmol/L (136-145); Total Protein,Serum 7.1 g/dl (6.3-8.2); Triglycerides 141 mg/dl (30-150); VLDL Cholesterol 28 mg/dL (0-40)
[2019-11-25 10:44] LABS: Direct LDL Cholesterol 82.33 mg/dL (100-129)
== END ==
PROVIDERS: Visit Provider Nurse Practitioner Family
DX: E78.5 Hyperlipidemia, unspecified (principal); I10 Essential (primary) hypertension; M12.9 Arthropathy, unspecified; E11.9 Type 2 diabetes mellitus without complications; Z79.84 Long term (current) use of oral hypoglycemic drugs
CPT/HCPCS: 36415; 80053; 80061; 82306; 83036

== ENCOUNTER → 2019-12-02 09:22 | Outpatient (CLI) | payer MEDICARE, BC, SELFPAY ==
--- NOTE | 2019-12-02 09:26 | CT_ITS ---
PROCEDURE: CT ABDOMEN PELVIS W CON CLINICAL INDICATION: RT INGUINAL HERNIA right lower hernia x 2 weeks COMPARISON: No exams were available for comparison TECHNIQUE: IV Contrast: 75ML OPTIRAY 350 Oral Contrast None Axial images obtained with sagittal and coronal reformats. All CT scans at the facility use one or more dose reduction, viz: automated exposure control, ma/kV adjustment per patient size (including targeted exams where dose is matched to indication, i.e. head), or iterative reconstruction technique. FINDINGS: LOWER THORAX: Minimal atelectatic or fibrotic changes are present in the right middle lobe. There is a 6 mm noncalcified nodule in the lingula. Atelectatic changes are present in the left lower lobe medially. A 5 mm nodules present in the left lower lobe posteriorly ABDOMEN & PELVIS: Mild fatty liver. There is an area of enhancement in the right hepatic lobe anteriorly near the gallbladder fossa measuring 1.7 cm. The spleen, adrenal glands, pancreas, has an unremarkable appearance. There is an exophytic isodense the projecting off the lower pole of the left kidney which is indeterminate measuring 24 Hounsfield units. Exophytic nodule projects off the right kidney posteriorly also indeterminate measuring 28 Hounsfield units. These areas measure approximately 10 mm. Unremarkable appendix. No intestinal obstruction or free air. There are scattered colonic diverticula. No evidence of diverticulitis. There is a right inguinal hernia which contains a loop of small bowel. There is no evidence of bowel obstruction. Small left inguinal hernia also noted containing fat. Small umbilical hernia containing fat. No acute bony findings. IMPRESSION: 1. There is a small to medium sized right inguinal hernia containing a loop of small bowel. No evidence of bowel obstruction. 2. There is a small left inguinal hernia containing fat and a small umbilical hernia containing fat. 3. There is an enhancing lesion in the junction of the right and left hepatic lobes of the liver etiology indeterminate. 4. Indeterminate bilateral renal lesions. Suggest 3 month follow-up of the liver and renal lesions with hemangioma/renal protocol to confirm stability. 5. Two left lower lobe nodules at 5 and 6 mm. Recommend six-month follow-up Dictated by: Grayson Pacheco MD 12/04/2019 08:25 Grayson Pcaheco MD in [place] 12/04/2019 08:25
== END ==
PROVIDERS: PCP Internal Medicine Adolescent Medicine; Visit Provider Nurse Practitioner Family
DX: K40.90 Unilateral inguinal hernia, without obstruction or gangrene, not specified as recurrent (principal)
CPT/HCPCS: 74177; Q9967

== ENCOUNTER → 2019-12-28 11:27 | Outpatient (CLI) | payer MEDICARE, BC, SELFPAY ==
[2019-12-28 11:31] LABS: Microscopic, Urine URINE MICROSCOPIC (MICROSCOPIC)
--- NOTE | 2019-12-28 12:04 | ECG_ITS ---
APPROVED REPORT Exam: Resting ECG HR:82 bpm ECG Measurements Heart Rate 82 AXES IL 140 P 21 QRSd 116 QRS -40 QT 368 T 13 QTc 429 Conclusion Sinus rhythm with fusion complexes Left axis deviation Low voltage QRS Right bundle branch block Abnormal ECG Electronically signed by : Sacha Dickson, 12/29/2019 07:30:07
[2019-12-28 12:09] LABS: Basophils % 0.5 % (0.1-2.0); Eosinophils # 0.1 K/mm3 (0.0-0.4); Eosinophils % 1.8 % (0.1-12.0); Lymphocytes # 2.2 K/mm3 (0.7-4.5); Lymphocytes % 29.9 % (10-50); Mean Corpuscular Hemoglobin 29.3 pg (27.0-31.2); Mean Corpuscular Volume 86.2 fl (80-94); Mean Platelet Volume 8.1 fl (7.4-10.4); Monocytes # 0.5 K/mm3 (0.1-1.0); Monocytes % 6.7 % (1.7-9.3); Neutrophils # 4.4 K/mm3 (1.8-7.8); Neutrophils % 61.2 % (37.0-80.0); Platelet Count 201 K/mm3 (142-424); Red Cell Distribution Width 13.6 % (11.5-17.5); White Blood Count 7.2 K/mm3 (4.8-10.8)
[2019-12-28 12:25] LABS: Appearance,Urine CLEAR (Clear); Bilirubin,Urine Negative (Negative); Blood, Urine Negative (Negative); Color,Urine YELLOW (Yellow); Glucose,Urine (UA) Negative (Negative); Ketones,Urine TRACE (Negative); Leukocyte Esterase,Urine Negative (Negative); Nitrate,Urine Negative (Negative); Protein,Urine Negative (Negative); Specific Gravity, Urine 1.025 (1.005-1.030); Urobilinogen,Urine 0.2 EU/dl (0.2)
[2019-12-28 13:08] LABS: Anion Gap 13.6 mEq/L (5-15); Blood Urea Nitrogen 22 mg/dl (9-20); Calcium 10.2 mg/dl (8.4-10.2); Carbon Dioxide 31 mmol/L (22.0-30.0); Chloride 101 mmol/L (98-107); Estimated Glomerular Filt Rate 61 ml/min (>60); GFR (African American) 74 ML/MIN (>60); Glucose 157 mg/dl (74-100); Potassium 4.6 mmoL/L (3.5-5.1); Sodium 141 mmol/L (136-145)
[2019-12-28 13:35] LABS: Bacteria,Urine Trace /lpf; WBC,Urine Occasional #/hpf (0-3)
[2019-12-28 15:51] LABS: Coronavirus 19 IgG Antibody Negative (Negative); Coronavirus 19 IgM Antibody Negative (Negative)
== END ==
PROVIDERS: Visit Provider Surgery
DX: K46.9 Unspecified abdominal hernia without obstruction or gangrene (principal); Z01.818 Encounter for other preprocedural examination
CPT/HCPCS: 36415; 80048; 81001; 85025; 86328; 93005

== ENCOUNTER 2019-12-30 05:49 | Day surgery (SDC) | payer MEDICARE, BC, SELFPAY ==
[2019-12-28 09:57] VITALS: BMI 31.9
[2019-12-30] VITALS (13 sets, daily range): BP systolic 99–126; BP diastolic 57–77; PULSE 71–89; RESP 12–20; TEMP 36.2–43; O2SAT 93–97
--- NOTE | 2019-12-30 07:10 | HMH.ANESCL ---
[facility] Anesthesia Checklist - Patient Identification Patient Identification: Arm Band, Verbal (Name & ) - Structural Data Admitted From: Home Planned Operative Procedure/s: ing hernia Consent for Planned Operative Procedure(s) Verified: Yes Verified Documents: History and Physical - NPO Status Verified Time NPO: 00:00 - Chart Verification Results Verified: CBC, BMP - Additional verifications Patient : No Anesthesia Reactions: No Hx Blood Transfusions: No Blood Transfusion Reaction: No Cephalosporin Allergy: No Previous Colonoscopy: Yes - Cardiovascular Assessment Heart Sounds: S1 & S2 Pulse Strength: Baseline Pulse Rhythm: Regular Peripheral Edema: No - Airway Assessment C-Spine Mobility Assessed: Yes TMJ Mobility Assessed: Yes Dentition: Good Dentition - Neurological Assessment Level of Consciousness: Awake, Alert, Appropriate Hx Seizures: No Numbness or tingling in extremities: No - Anesthesia Plan Anesthesia Risk discussed: Yes Anesthesia Plan: Verified ASA Class: II Anesthesia Type: General [facility] History I have reviewed the patient's past medical history: Yes Medical History: Reports:: Diabetes Mellitus Type 2, Hyperlipidemia, Hypertension, Palpitations, Renal Disease Denies:: Cancer, Diabetes Mellitus Type 1, Internal Pacemaker, Lung Disease, MRSA, Seizures *Have you ever received a pneumonia vaccine?: Yes *Have you received a flu vaccine this season?: Yes Other Medical History: Denies: Blood Transfusion Reaction Anesthesia experience/problems:: none Laterality Cases: Left: Arthroscopy Knee, Bilateral: Cataract Other Surgeries: Yes: Cardiac Catheterization, Colonoscopy, Other. No: Pacemaker Amputation: No Fractures: No - *Social History Last grade of school completed: Advanced degree Smoking Status: Current every day smoker Tobacco Type: smokeless tobacco # Packs/Day (cigarettes): 1 #Yrs smoked (if former smoker): 20 Alcohol Intake: never Alcohol Intake Frequency:: other Substance Use Type: denies use *Occupational Status:: retired Housing: house Household Members: spouse *Travel in the last 8 weeks: None Family Hx:: Cancer, Coronary Artery Disease, Heart Attack
--- NOTE | 2019-12-30 08:56 | P.OP_ITS ---
Date of procedure: 12/30/19 Pre-op Diagnosis:: Right inguinal hernia Post-op Diagnosis:: Same Procedure performed:: Open right inguinal hernia repair Surgeon:: Florentin Velazquez MD SUGAR TRUCKER:: Fantasma Hussein Anesthesia: LMA Estimated blood loss (mL): 10 Operative findings:: Large direct defect Extra-large PerFix plug and medium PerFix plug secured in defect PerFix overlay placed Operative note:: After informed consent was obtained the patient was taken to the operating room and placed in the supine position. General anesthesia was induced and his abdomen/groin/scrotum was prepped and draped in a sterile fashion. After infiltration local anesthetic an oblique right groin incision was made. A combination of sharp dissection and dissection with electrocautery was utilized to transect through Seun's fascia to the level of the external aponeurosis. The external aponeurosis was opened sharply to the level of the external ring. The contents of the canal were carefully elevated. A very large direct defect was noted. An extra-large PerFix plug was secured within the defect with interrupted Ethibond. The defect was still apparent with lateral extension. A medium PerFix plug was secured along the lateral margin utilizing interrupted Ethibond. The PerFix overlay was then secured to the shelving edge inferiorly a nd fascial margin superiorly with interrupted Ethibond. The wound was thoroughly irrigated. The external aponeurosis was reapproximated with running Vicryl suture. Seun's fascia was reapproximated in a similar manner. Skin was then closed with 4-0 Monocryl in a running subcuticular fashion. Steri- Strips were applied. The patient was then transferred to recovery in stable condition after removal of his laryngeal mask airway. Condition: stable Disposition: PACU Specimens:: None Complications:: No immediate
--- NOTE | 2019-12-30 09:05 | P.PN_ITS ---
[facility] Anesthesia Record Part I Intake, IV Amount: 650 Estimated blood loss (mL): 10 Urine output (mL): 150 Blood Products used (#): none Blood Pressure: 117/75 SaO2: 93 Pulse Rate: 89 Respiratory Rate: 20 Temperature: 97.4 F Patient is:: Awake, Stable Stable to PACU at:: 09:03
[2019-12-30 12:29] LABS: POC Glucose,Bedside 188 (70-110)
--- NOTE | 2019-12-30 13:40 | HMH.ANESII ---
[facility] Anesthesia Record Part II Discharge Time: 09:33 Destination: Surgical Day Care (OP Surgery) PACU nurse assessment reviewed?: Yes Patient Condition:: Good Anesthesia Complications:: None Swallowing reflex intact?: Yes Cyanosis?: No Blood Pressure: 99/57 Pulse Rate: 78 Temperature: 9801 F Mental Status: Alert & Oriented Pain level:: 0 Nausea and/or vomitting:: None Intake, IV Amount: 30
[2019-12-30 14:46] LABS: Microscopic,Cath URINE MICROSCOPIC (MICROSCOPIC)
[2019-12-30 14:50] LABS: Appearance,Urine/Cath CLEAR (Clear); Bilirubin,Cath Negative (Negative); Blood, Urine/Cath Negative (Negative); Color,Urine/Cath YELLOW (Yellow); Glucose,Urine/Cath (UA) TRACE (Negative); Ketones,Urine/Cath Negative (Negative); Leukocyte Esterase,Cath TRACE (Negative); Nitrate,Cath Negative (Negative); Protein,Urine/Cath Negative (Negative); Urobilinogen,Cath 0.2 EU/dl (0.2)
[2019-12-30 15:13] LABS: Bacteria,Urine/Cath 3+ /lpf; RBC,Urine/Cath Occasional # /hpf (0-3); Squamous Epithelial Ur./Cath Occasional #/hpf (0-5)
--- NOTE | 2019-12-30 15:21 | PC.NURSE ---
0903-pt to pacu via stretcher drowsy but awake. Pt is coughing with clear phlem. vss.
== END 2019-12-30 10:26 | disposition home or self-care (01) ==
LOC: OR 05:51
PROVIDERS: PCP Internal Medicine Adolescent Medicine; Visit Provider Surgery
PROC: (CPT 49505; principal; 2019-12-30 07:30)
DX: K40.90 Unilateral inguinal hernia, without obstruction or gangrene, not specified as recurrent; E11.9 Type 2 diabetes mellitus without complications; E78.5 Hyperlipidemia, unspecified; I10 Essential (primary) hypertension; R00.2 Palpitations; N28.9 Disorder of kidney and ureter, unspecified; Z87.39 Personal history of other diseases of the musculoskeletal system and connective tissue; Z72.0 Tobacco use; Z80.9 Family history of malignant neoplasm, unspecified; Z82.49 Family history of ischemic heart disease and other diseases of the circulatory system; Z84.89 Family history of other specified conditions; Z79.899 Other long term (current) drug therapy
CPT/HCPCS: 49505; 81001; 82962; 87086; 96374

== ENCOUNTER → 2020-02-20 07:52 | Outpatient (CLI) | payer MEDICARE, BC, SELFPAY ==
[2020-02-20 08:00] LABS: Microscopic, Urine URINE MICROSCOPIC (MICROSCOPIC)
[2020-02-20 08:22] LABS: Basophils % 0.5 % (0.1-2.0); Eosinophils # 0.2 K/mm3 (0.0-0.4); Hematocrit 49.7 % (42.0-52.0); Hemoglobin 17.4 g/dL (14.1-18.0); Lymphocytes # 2.6 K/mm3 (0.7-4.5); Lymphocytes % 31.9 % (10-50); Mean Corpuscular Hemoglobin 30.4 pg (27.0-31.2); Mean Corpuscular Volume 87.1 fl (80-94); Mean Platelet Volume 8.3 fl (7.4-10.4); Monocytes # 0.5 K/mm3 (0.1-1.0); Monocytes % 5.6 % (1.7-9.3); Neutrophils # 4.9 K/mm3 (1.8-7.8); Neutrophils % 60.1 % (37.0-80.0); Platelet Count 180 K/mm3 (142-424); Red Cell Distribution Width 13.4 % (11.5-17.5); White Blood Count 8.2 K/mm3 (4.8-10.8)
[2020-02-20 08:23] LABS: Appearance,Urine CLEAR (Clear); Bilirubin,Urine Negative (Negative); Blood, Urine Negative (Negative); Color,Urine YELLOW (Yellow); Glucose,Urine (UA) Negative (Negative); Ketones,Urine Negative (Negative); Leukocyte Esterase,Urine Negative (Negative); Nitrate,Urine Negative (Negative); PH,Urine 5.5 (5.0-8.5); Protein,Urine Negative (Negative); Specific Gravity, Urine 1.015 (1.005-1.030); Urobilinogen,Urine 0.2 EU/dl (0.2)
[2020-02-20 08:41] LABS: Squamous Epithelial Cell,Urine Occasional #/hpf (0-5)
[2020-02-20 08:55] LABS: Albumin Level 4.8 g/dl (3.5-5.0); Anion Gap 13.6 mEq/L (5-15); Blood Urea Nitrogen 19 mg/dl (9-20); Calcium 11.1 mg/dl (8.4-10.2); Carbon Dioxide 25 mmol/L (22.0-30.0); Chloride 101 mmol/L (98-107); Estimated Glomerular Filt Rate 68 ml/min (>60); GFR (African American) 82 ML/MIN (>60); Glucose 180 mg/dl (74-100); Phosphorous 4.4 mg/dl (2.5-4.5); Potassium 4.6 mmoL/L (3.5-5.1); Sodium 135 mmol/L (136-145); Uric Acid 5.9 mg/dl (3.5-8.5)
[2020-02-20 14:26] LABS: Creatinine,Urine Random 96 mg/dL (Not Estab.)
== END ==
PROVIDERS: Visit Provider Physician Assistant Medical
DX: N17.9 Acute kidney failure, unspecified (principal)
CPT/HCPCS: 36415; 80069; 81001; 82570; 84155; 84156; 84166; 84550; 85025

== ENCOUNTER → 2020-06-19 10:25 | Outpatient (CLI) | payer MEDICARE, BC, SELFPAY ==
[2020-06-19 10:55] LABS: Basophils % 0.4 % (0.1-2.0); Eosinophils # 0.1 K/mm3 (0.0-0.4); Eosinophils % 1.3 % (0.1-12.0); Hematocrit 52.2 % (42.0-52.0); Hemoglobin 17.5 g/dL (14.1-18.0); Lymphocytes # 2.5 K/mm3 (0.7-4.5); Lymphocytes % 28.8 % (10-50); Mean Corpuscular HGB Conc 33.6 g/dL (31.8-35.4); Mean Corpuscular Hemoglobin 29.3 pg (27.0-31.2); Mean Corpuscular Volume 87.4 fl (80-94); Mean Platelet Volume 7.9 fl (7.4-10.4); Monocytes # 0.4 K/mm3 (0.1-1.0); Monocytes % 4.6 % (1.7-9.3); Neutrophils # 5.6 K/mm3 (1.8-7.8); Neutrophils % 64.9 % (37.0-80.0); Platelet Count 168 K/mm3 (142-424); Red Blood Count 5.97 M/mm3 (4.60-6.20); Red Cell Distribution Width 13.7 % (11.5-17.5); White Blood Count 8.6 K/mm3 (4.8-10.8)
[2020-06-19 11:28] LABS: Alanine Aminotransferase 29 U/L (12-78); Albumin Level 5.3 g/dl (3.5-5.0); Albumin/Globulin Ratio 1.8 (1.1-1.8); Alkaline Phosphatase 89 U/L (38-126); Anion Gap 16.8 mEq/L (5-15); Aspartate Amino Transferase 30 U/L (17-59); Bilirubin,Total 0.6 mg/dl (0.2-1.3); Blood Urea Nitrogen 21 mg/dl (9-20); Calcium 10.3 mg/dl (8.4-10.2); Carbon Dioxide 27 mmol/L (22.0-30.0); Chloride 103 mmol/L (98-107); Chol/HDL Ratio 4.4 (1-3.5); Cholesterol 166 mg/dl (140-200); Estimated Glomerular Filt Rate 68 ml/min (>60); GFR (African American) 82 ML/MIN (>60); Glucose 152 mg/dl (74-100); HDL Cholesterol 38 mg/dl (40-60); Potassium 4.8 mmoL/L (3.5-5.1); Sodium 142 mmol/L (136-145); Total Protein,Serum 8.3 g/dl (6.3-8.2); Triglycerides 262 mg/dl (30-150); Uric Acid 6.8 mg/dl (3.5-8.5); VLDL Cholesterol 52 mg/dL (0-40)
[2020-06-19 11:39] LABS: Direct LDL Cholesterol 73.45 mg/dL (100-129)
[2020-06-19 12:02] LABS: Hemoglobin A1C 8.1 % (4.0-6.0)
[2020-06-19 12:17] LABS: Vitamin B12 558 pg/mL (239-931)
== END ==
PROVIDERS: Visit Provider Internal Medicine Adolescent Medicine
DX: E11.9 Type 2 diabetes mellitus without complications (principal); E78.5 Hyperlipidemia, unspecified; M10.9 Gout, unspecified; G25.0 Essential tremor
CPT/HCPCS: 36415; 80053; 80061; 82607; 83036; 84550; 85025

== ENCOUNTER → 2020-08-01 14:34 | Outpatient (POV) | payer MEDICARE, BC, SELFPAY | DX: Z00.00 Encounter for general adult medical examination without abnormal findings (principal) ==

== ENCOUNTER → 2020-08-20 07:17 | Outpatient (CLI) | payer MEDICARE, BC, SELFPAY ==
[2020-08-20 07:22] LABS: Microscopic, Urine URINE MICROSCOPIC (MICROSCOPIC)
[2020-08-20 07:55] LABS: Basophils % 0.3 % (0.1-2.0); Eosinophils # 0.1 K/mm3 (0.0-0.4); Eosinophils % 1.9 % (0.1-12.0); Hematocrit 47.3 % (42.0-52.0); Hemoglobin 16.1 g/dL (14.1-18.0); Lymphocytes # 1.9 K/mm3 (0.7-4.5); Mean Corpuscular Hemoglobin 28.9 pg (27.0-31.2); Mean Corpuscular Volume 84.9 fl (80-94); Mean Platelet Volume 8.6 fl (7.4-10.4); Monocytes # 0.4 K/mm3 (0.1-1.0); Monocytes % 5.5 % (1.7-9.3); Neutrophils % 67.2 % (37.0-80.0); Platelet Count 148 K/mm3 (142-424); Red Blood Count 5.57 M/mm3 (4.60-6.20); Red Cell Distribution Width 13.9 % (11.5-17.5); White Blood Count 7.4 K/mm3 (4.8-10.8)
[2020-08-20 08:19] LABS: Appearance,Urine CLEAR (Clear); Bilirubin,Urine Negative (Negative); Blood, Urine Negative (Negative); Color,Urine YELLOW (Yellow); Glucose,Urine (UA) 3+ (Negative); Ketones,Urine Negative (Negative); Leukocyte Esterase,Urine Negative (Negative); Nitrate,Urine Negative (Negative); Protein,Urine Negative (Negative); Specific Gravity, Urine 1.015 (1.005-1.030); Urobilinogen,Urine 0.2 EU/dl (0.2)
[2020-08-20 08:29] LABS: WBC,Urine Occasional #/hpf (0-3)
[2020-08-20 09:02] LABS: Chloride 103 mmol/L (98-107); Sodium 138 mmol/L (136-145)
[2020-08-20 09:03] LABS: Albumin Level 4.7 g/dl (3.5-5.0); Potassium 4.7 mmoL/L (3.5-5.1)
[2020-08-20 09:05] LABS: Anion Gap 13.7 mEq/L (5-15); Blood Urea Nitrogen 20 mg/dl (9-20); Carbon Dioxide 26 mmol/L (22.0-30.0); Estimated Glomerular Filt Rate 68 ml/min (>60); GFR (African American) 82 ML/MIN (>60)
[2020-08-20 09:06] LABS: Calcium 9.2 mg/dl (8.4-10.2); Glucose 130 mg/dl (74-100); Phosphorous 3.7 mg/dl (2.5-4.5)
[2020-08-24 15:25] LABS: Creatinine,Urine Random 62 mg/dL (Not Estab.); Microalbumin < 3.000 mg/L (0-16.7); Microalbumin/Creatinine Ratio < 5.0
== END ==
PROVIDERS: Visit Provider Internal Medicine Nephrology
DX: N18.30 Chronic kidney disease, stage 3 unspecified (principal)
CPT/HCPCS: 36415; 80069; 81001; 82043; 82570; 84155; 85025

== ENCOUNTER → 2020-09-14 10:43 | Outpatient (CLI) | payer MEDICARE, BC, SELFPAY | PROVIDERS: PCP Internal Medicine Adolescent Medicine; Visit Provider Physician Assistant | DX: I25.10 Atherosclerotic heart disease of native coronary artery without angina pectoris; I10 Essential (primary) hypertension; E78.2 Mixed hyperlipidemia; Z82.49 Family history of ischemic heart disease and other diseases of the circulatory system | CPT/HCPCS: 93306 ==

== ENCOUNTER → 2020-09-18 07:05 | Outpatient (CLI) | payer MEDICARE, BC, SELFPAY | PROVIDERS: Visit Provider Surgery | DX: Z01.812 Encounter for preprocedural laboratory examination (principal); Z11.52 Encounter for screening for COVID-19; Z12.11 Encounter for screening for malignant neoplasm of colon | CPT/HCPCS: 36415; U0003 ==

== ENCOUNTER 2020-09-20 08:17 | Day surgery (SDC) | payer MEDICARE, BC, SELFPAY ==
[2020-09-18 11:06] VITALS: BMI 31.8
[2020-09-20 08:35] VITALS: BP 109/73; PULSE 71; RESP 18; TEMP 36.1; O2SAT 96
[2020-09-20 09:02] LABS: POC Glucose,Bedside 154 (70-110)
[2020-09-20 09:22] VITALS: O2SAT 97
--- NOTE | 2020-09-20 09:23 | HMH.ANESCL ---
[facility] Anesthesia Checklist - Patient Identification Patient Identification: Arm Band - Structural Data Admitted From: Home Planned Operative Procedure/s: colonoscopy Consent for Planned Operative Procedure(s) Verified: Yes Verified Documents: Surgical Consent, History and Physical - NPO Status Verified Time NPO: 00:00 - Additional verifications Anesthesia Reactions: No Hx Blood Transfusions: No Blood Transfusion Reaction: No - Airway Assessment C-Spine Mobility Assessed: Yes (mp2) TMJ Mobility Assessed: Yes Dentition: Good Dentition - Neurological Assessment Level of Consciousness: Awake, Alert - Anesthesia Plan Anesthesia Risk discussed: Yes Anesthesia Plan: Verified ASA Class: III Anesthesia Type: MAC [facility] History I have reviewed the patient's past medical history: Yes Medical History: Reports:: Diabetes Mellitus Type 2, Hyperlipidemia, Hypertension, Palpitations, Renal Disease Denies:: Cancer, Diabetes Mellitus Type 1, Internal Pacemaker, Lung Disease, MRSA, Seizures *Have you ever received a pneumonia vaccine?: Yes *Have you received a flu vaccine this season?: Yes Other Medical History: Denies: Blood Transfusion Reaction Anesthesia experience/problems:: nac Laterality Cases: Left: Arthroscopy Knee, Right: Cataract Other Surgeries: Yes: Cardiac Catheterization, Colonoscopy, Hernia Repair, Other. No: Pacemaker Amputation: No Fractures: No - *Social History Last grade of school completed: Advanced degree Smoking Status: Current every day smoker Tobacco Type: smokeless tobacco # Packs/Day (cigarettes): 0 #Yrs smoked (if former smoker): 20 Alcohol Intake: former Alcohol Intake Frequency:: other Substance Use Type: denies use *Occupational Status:: retired Housing: house Household Members: spouse *Travel in the last 8 weeks: None Family Hx:: Cancer, Coronary Artery Disease, Heart Attack, Alcoholism
--- NOTE | 2020-09-20 09:53 | P.PCN_ITS ---
- Procedure: Date: 09/20/20 Patient Date of :: 1955 Procedure Performed:: Colonoscopy with polypectomy Indications:: History of colon polyps Diverticulosis Performing Provider:: Florentin Velazquez MD Referring Provider:: . Sedation:: Monitored anesthesia care Procedure:: After informed consent was obtained the patient was taken to the endoscopy tomás te. Sedation ensued after the patient was transferred to the left lateral decubitus position. Pulse, blood pressure, and oxygen saturation were monitored throughout the procedure. Digital rectal exam revealed no significant abnormality. The colonoscope was placed in position. The entire colon was evaluated. The colonoscope was carefully removed and the patient was transferred to recovery in stable condition. Please see findings and specimens below for detail. Findings:: Bowel preparation relatively fair Fairly severe spasticity/lack of relaxation Moderate tortuosity Hemorrhoidal cushions Scattered diverticulosis (worse in sigmoid) Polyp at 20 cm Specimens:: Polyp at 20 cm (cold snare) Recommendations:: Timing of repeat colonoscopy is pending pathology but will likely be between 2-3 years secondary to history of polyps, tortuosity, and fairly severe spasticity/lack of relaxation. Complications:: No immediate Estimated blood obtained (mL): 1
[2020-09-20 09:55] VITALS: BP 80/47; PULSE 62; RESP 16; TEMP 36.4; O2SAT 96
[2020-09-20 10:05] VITALS: BP 87/62; PULSE 66; RESP 16; O2SAT 98
[2020-09-20 10:15] VITALS: BP 100/62; PULSE 65; RESP 16; O2SAT 98
[2020-09-20 10:25] VITALS: BP 100/66; PULSE 58; RESP 16; O2SAT 100
== END 2020-09-20 10:28 | disposition home or self-care (01) ==
LOC: OUTP 08:18
PROVIDERS: PCP Internal Medicine Adolescent Medicine; Visit Provider Surgery
PROC: 0DJD8ZZ Inspection of Lower Intestinal Tract, Via Natural or Artificial Opening Endoscopic (ICD-10-PCS; principal; 2020-09-20 09:30)
DX: Z12.11 Encounter for screening for malignant neoplasm of colon (principal); Z86.010 Personal history of colon polyps; K56.2 Volvulus; K64.0 First degree hemorrhoids; K57.30 Diverticulosis of large intestine without perforation or abscess without bleeding; K63.5 Polyp of colon; E11.9 Type 2 diabetes mellitus without complications; E78.5 Hyperlipidemia, unspecified; I10 Essential (primary) hypertension; R00.2 Palpitations; N28.9 Disorder of kidney and ureter, unspecified; Z72.0 Tobacco use
CPT/HCPCS: 45385; 82962; 88305

== ENCOUNTER → 2020-10-23 07:16 | Outpatient (CLI) | payer MEDICARE, BC, SELFPAY ==
[2020-10-23 07:37] LABS: Basophils % 0.6 % (0.1-2.0); Eosinophils # 0.2 K/mm3 (0.0-0.4); Eosinophils % 2.4 % (0.1-12.0); Hematocrit 52.4 % (42.0-52.0); Hemoglobin 17.2 g/dL (14.1-18.0); Lymphocytes % 27.4 % (10-50); Mean Corpuscular HGB Conc 32.9 g/dL (31.8-35.4); Mean Corpuscular Hemoglobin 28.8 pg (27.0-31.2); Mean Corpuscular Volume 87.5 fl (80-94); Mean Platelet Volume 8.6 fl (7.4-10.4); Monocytes # 0.4 K/mm3 (0.1-1.0); Monocytes % 5.3 % (1.7-9.3); Neutrophils # 4.7 K/mm3 (1.8-7.8); Neutrophils % 64.4 % (37.0-80.0); Platelet Count 174 K/mm3 (142-424); Red Blood Count 5.98 M/mm3 (4.60-6.20); White Blood Count 7.3 K/mm3 (4.8-10.8)
[2020-10-23 08:00] LABS: Hemoglobin A1C 7.5 % (4.0-6.0)
[2020-10-23 08:19] LABS: Chloride 104 mmol/L (98-107); Sodium 142 mmol/L (136-145)
[2020-10-23 08:20] LABS: Potassium 4.8 mmoL/L (3.5-5.1)
[2020-10-23 08:22] LABS: Alanine Aminotransferase 40 U/L (12-78); Albumin Level 4.8 g/dl (3.5-5.0); Albumin/Globulin Ratio 1.8 (1.1-1.8); Alkaline Phosphatase 87 U/L (38-126); Anion Gap 14.8 mEq/L (5-15); Aspartate Amino Transferase 35 U/L (17-59); Bilirubin,Total 0.9 mg/dl (0.2-1.3); Blood Urea Nitrogen 19 mg/dl (9-20); Carbon Dioxide 28 mmol/L (22.0-30.0); Cholesterol 133 mg/dl (140-200); Estimated Glomerular Filt Rate 68 ml/min (>60); GFR (African American) 82 ML/MIN (>60); Globulin 2.6 g/dL (1.3-3.2); Total Protein,Serum 7.4 g/dl (6.3-8.2); Triglycerides 196 mg/dl (30-150); VLDL Cholesterol 39 mg/dL (0-40)
[2020-10-23 08:23] LABS: Calcium 9.6 mg/dl (8.4-10.2); Chol/HDL Ratio 4.3 (1-3.5); Glucose 147 mg/dl (74-100); HDL Cholesterol 31 mg/dl (40-60)
[2020-10-23 08:34] LABS: Direct LDL Cholesterol 60.85 mg/dL (100-129)
== END ==
PROVIDERS: Visit Provider Internal Medicine Adolescent Medicine
DX: E78.5 Hyperlipidemia, unspecified (principal); E11.9 Type 2 diabetes mellitus without complications; Z79.84 Long term (current) use of oral hypoglycemic drugs
CPT/HCPCS: 36415; 80053; 80061; 83036; 85025

== ENCOUNTER → 2021-04-01 09:08 | Outpatient (CLI) | payer MEDICARE, BC, SELFPAY | PROVIDERS: PCP Internal Medicine Adolescent Medicine; Visit Provider Internal Medicine Cardiovascular Disease | DX: E78.2 Mixed hyperlipidemia (principal); I25.10 Atherosclerotic heart disease of native coronary artery without angina pectoris; I45.10 Unspecified right bundle-branch block; I51.9 Heart disease, unspecified; R00.2 Palpitations; R51.9 Headache, unspecified; R94.31 Abnormal electrocardiogram [ECG] [EKG]; Z82.49 Family history of ischemic heart disease and other diseases of the circulatory system | CPT/HCPCS: 93270 ==

== ENCOUNTER → 2021-04-04 07:24 | Outpatient (CLI) | payer MEDICARE, BC, SELFPAY ==
[2021-04-04 07:30] LABS: Microscopic, Urine URINE MICROSCOPIC (MICROSCOPIC)
[2021-04-04 08:35] LABS: Appearance,Urine CLEAR (Clear); Bilirubin,Urine Negative (Negative); Blood, Urine Negative (Negative); Color,Urine YELLOW (Yellow); Glucose,Urine (UA) 3+ (Negative); Ketones,Urine Negative (Negative); Leukocyte Esterase,Urine Negative (Negative); Nitrate,Urine Negative (Negative); PH,Urine 5.5 (5.0-8.5); Protein,Urine Negative (Negative); Urobilinogen,Urine 0.2 EU/dl (0.2)
[2021-04-04 08:41] LABS: Basophils # 0.1 K/mm3 (0-0.2); Basophils % 0.7 % (0.1-2.0); Eosinophils # 0.1 K/mm3 (0.0-0.4); Eosinophils % 1.9 % (0.1-12.0); Hematocrit 54.4 % (42.0-52.0); Hemoglobin 17.9 g/dL (14.1-18.0); Lymphocytes # 2.2 K/mm3 (0.7-4.5); Lymphocytes % 32.3 % (10-50); Mean Corpuscular HGB Conc 32.8 g/dL (31.8-35.4); Mean Corpuscular Hemoglobin 29.3 pg (27.0-31.2); Mean Corpuscular Volume 89.3 fl (80-94); Mean Platelet Volume 8.8 fl (7.4-10.4); Monocytes # 0.4 K/mm3 (0.1-1.0); Monocytes % 5.7 % (1.7-9.3); Neutrophils # 4.1 K/mm3 (1.8-7.8); Neutrophils % 59.4 % (37.0-80.0); Platelet Count 183 K/mm3 (142-424); Red Cell Distribution Width 13.7 % (11.5-17.5); White Blood Count 6.9 K/mm3 (4.8-10.8)
[2021-04-04 08:45] LABS: Creatinine,Urine Random 98 mg/dL (Not Estab.); Total Protein,Urine Random < 5.0 mg/dL (0.0-12.0)
[2021-04-04 08:52] LABS: Sperm,Urine OCC /lpf; Squamous Epithelial Cell,Urine Occasional #/hpf (0-5)
[2021-04-04 09:29] LABS: Albumin Level 5.2 g/dl (3.5-5.0); Anion Gap 15.7 mEq/L (5-15); Blood Urea Nitrogen 21 mg/dl (9-20); Calcium 10.2 mg/dl (8.4-10.2); Carbon Dioxide 30 mmol/L (22.0-30.0); Chloride 101 mmol/L (98-107); Estimated Glomerular Filt Rate 61 ml/min (>60); GFR (African American) 74 ML/MIN (>60); Glucose 137 mg/dl (74-100); Phosphorous 4.2 mg/dl (2.5-4.5); Potassium 4.7 mmoL/L (3.5-5.1); Sodium 142 mmol/L (136-145)
== END ==
PROVIDERS: PCP Internal Medicine Adolescent Medicine; Visit Provider Internal Medicine Nephrology
DX: I12.9 Hypertensive chronic kidney disease with stage 1 through stage 4 chronic kidney disease, or unspecified chronic kidney disease (principal); N18.2 Chronic kidney disease, stage 2 (mild)
CPT/HCPCS: 36415; 80069; 81001; 82570; 84155; 85025

== ENCOUNTER → 2021-04-11 07:30 | Outpatient (CLI) | payer MEDICARE, BC, SELFPAY ==
[2021-04-11 08:10] LABS: Basophils # 0.1 K/mm3 (0-0.2); Basophils % 2.1 % (0.1-2.0); Eosinophils # 0.2 K/mm3 (0.0-0.4); Eosinophils % 2.4 % (0.1-12.0); Hematocrit 53.4 % (42.0-52.0); Hemoglobin 17.5 g/dL (14.1-18.0); Lymphocytes # 2.1 K/mm3 (0.7-4.5); Lymphocytes % 32.4 % (10-50); Mean Corpuscular HGB Conc 32.8 g/dL (31.8-35.4); Mean Corpuscular Hemoglobin 29.3 pg (27.0-31.2); Mean Corpuscular Volume 89.3 fl (80-94); Mean Platelet Volume 9.1 fl (7.4-10.4); Monocytes # 0.4 K/mm3 (0.1-1.0); Monocytes % 6.1 % (1.7-9.3); Neutrophils # 3.6 K/mm3 (1.8-7.8); Neutrophils % 57.1 % (37.0-80.0); Platelet Count 167 K/mm3 (142-424); Red Blood Count 5.98 M/mm3 (4.60-6.20); Red Cell Distribution Width 13.9 % (11.5-17.5); White Blood Count 6.4 K/mm3 (4.8-10.8)
[2021-04-11 08:38] LABS: Chloride 102 mmol/L (98-107)
[2021-04-11 08:39] LABS: Potassium 4.3 mmoL/L (3.5-5.1); Sodium 135 mmol/L (136-145)
[2021-04-11 08:41] LABS: Alanine Aminotransferase 35 U/L (12-78); Alkaline Phosphatase 82 U/L (38-126); Aspartate Amino Transferase 35 U/L (17-59); Bilirubin,Total 0.8 mg/dl (0.2-1.3); Blood Urea Nitrogen 21 mg/dl (9-20); Estimated Glomerular Filt Rate 75 ml/min (>60); GFR (African American) 91 ML/MIN (>60)
[2021-04-11 08:42] LABS: Albumin Level 4.9 g/dl (3.5-5.0); Anion Gap 13.3 mEq/L (5-15); Calcium 9.4 mg/dl (8.4-10.2); Carbon Dioxide 24 mmol/L (22.0-30.0); Chol/HDL Ratio 4.3 (1-3.5); Cholesterol 126 mg/dl (140-200); Globulin 2.5 g/dL (1.3-3.2); Glucose 133 mg/dl (74-100); HDL Cholesterol 29 mg/dl (40-60); Total Protein,Serum 7.4 g/dl (6.3-8.2); Triglycerides 220 mg/dl (30-150); VLDL Cholesterol 44 mg/dL (0-40)
[2021-04-11 08:53] LABS: Direct LDL Cholesterol 63.08 mg/dL (100-129)
== END ==
PROVIDERS: PCP Internal Medicine Adolescent Medicine; Visit Provider Internal Medicine Adolescent Medicine
DX: E11.9 Type 2 diabetes mellitus without complications (principal); E78.5 Hyperlipidemia, unspecified; M12.9 Arthropathy, unspecified; Z79.84 Long term (current) use of oral hypoglycemic drugs
CPT/HCPCS: 36415; 80053; 80061; 83036; 85025

== ENCOUNTER → 2021-08-16 07:15 | Outpatient (CLI) | payer MEDICARE, BC, SELFPAY ==
[2021-08-16 08:22] LABS: Basophils # 0.1 K/mm3 (0-0.2); Basophils % 0.9 % (0.1-2.0); Eosinophils # 0.1 K/mm3 (0.0-0.4); Eosinophils % 2.3 % (0.1-12.0); Hemoglobin 17.1 g/dL (14.1-18.0); Lymphocytes # 1.8 K/mm3 (0.7-4.5); Lymphocytes % 30.5 % (10-50); Mean Corpuscular HGB Conc 33.6 g/dL (31.8-35.4); Mean Corpuscular Hemoglobin 29.8 pg (27.0-31.2); Mean Corpuscular Volume 88.6 fl (80-94); Mean Platelet Volume 8.9 fl (7.4-10.4); Monocytes # 0.4 K/mm3 (0.1-1.0); Neutrophils # 3.5 K/mm3 (1.8-7.8); Neutrophils % 60.3 % (37.0-80.0); Platelet Count 168 K/mm3 (142-424); Red Blood Count 5.76 M/mm3 (4.60-6.20); Red Cell Distribution Width 14.1 % (11.5-17.5); White Blood Count 5.9 K/mm3 (4.8-10.8)
[2021-08-16 09:13] LABS: Hemoglobin A1C 6.6 % (4.0-6.0)
[2021-08-16 09:29] LABS: Chloride 103 mmol/L (98-107); Sodium 137 mmol/L (136-145)
[2021-08-16 09:32] LABS: Alanine Aminotransferase 40 U/L (12-78); Albumin Level 4.6 g/dl (3.5-5.0); Albumin/Globulin Ratio 1.9 (1.1-1.8); Alkaline Phosphatase 69 U/L (38-126); Aspartate Amino Transferase 46 U/L (17-59); Bilirubin,Total 0.7 mg/dl (0.2-1.3); Blood Urea Nitrogen 14 mg/dl (9-20); Calcium 10.1 mg/dl (8.4-10.2); Carbon Dioxide 26 mmol/L (22.0-30.0); Cholesterol 121 mg/dl (140-200); Estimated Glomerular Filt Rate 75 ml/min (>60); GFR (African American) 91 ML/MIN (>60); Globulin 2.4 g/dL (1.3-3.2); Glucose 130 mg/dl (74-100); HDL Cholesterol 30 mg/dl (40-60); Triglycerides 174 mg/dl (30-150); VLDL Cholesterol 35 mg/dL (0-40)
[2021-08-16 09:43] LABS: Direct LDL Cholesterol 57.28 mg/dL (100-129)
[2021-08-16 09:48] LABS: Anion Gap 12.2 mEq/L (5-15); Potassium 4.2 mmoL/L (3.5-5.1)
== END ==
PROVIDERS: PCP Internal Medicine Adolescent Medicine; Visit Provider Internal Medicine Adolescent Medicine
DX: E11.9 Type 2 diabetes mellitus without complications (principal); D63.1 Anemia in chronic kidney disease; Z79.84 Long term (current) use of oral hypoglycemic drugs
CPT/HCPCS: 36415; 80053; 80061; 83036; 85025

== ENCOUNTER → 2022-02-24 07:08 | Outpatient (CLI) | payer MEDICARE, BC, SELFPAY ==
[2022-02-24 08:46] LABS: Basophils % 0.6 % (0.1-2.0); Eosinophils # 0.1 K/mm3 (0.0-0.4); Eosinophils % 1.9 % (0.1-12.0); Hematocrit 50.6 % (42.0-52.0); Lymphocytes # 2.1 K/mm3 (0.7-4.5); Mean Corpuscular HGB Conc 33.7 g/dL (31.8-35.4); Mean Corpuscular Hemoglobin 29.6 pg (27.0-31.2); Mean Corpuscular Volume 87.8 fl (80-94); Mean Platelet Volume 9.1 fl (7.4-10.4); Monocytes # 0.4 K/mm3 (0.1-1.0); Monocytes % 5.3 % (1.7-9.3); Neutrophils % 60.3 % (37.0-80.0); Platelet Count 199 K/mm3 (142-424); Red Blood Count 5.76 M/mm3 (4.60-6.20); Red Cell Distribution Width 13.2 % (11.5-17.5); White Blood Count 6.6 K/mm3 (4.8-10.8)
[2022-02-24 08:53] LABS: Chloride 100 mmol/L (98-107)
[2022-02-24 08:54] LABS: Potassium 5.3 mmoL/L (3.5-5.1); Sodium 140 mmol/L (136-145)
[2022-02-24 08:56] LABS: Alanine Aminotransferase 27 U/L (12-78); Anion Gap 15.3 mEq/L (5-15); Aspartate Amino Transferase 29 U/L (17-59); Blood Urea Nitrogen 14 mg/dl (9-20); Carbon Dioxide 30 mmol/L (22.0-30.0); Estimated Glomerular Filt Rate 61 ml/min (>60); GFR (African American) 74 ML/MIN (>60)
[2022-02-24 08:57] LABS: Albumin Level 4.8 g/dl (3.5-5.0); Alkaline Phosphatase 86 U/L (38-126); Bilirubin,Total 0.7 mg/dl (0.2-1.3); Calcium 9.9 mg/dl (8.4-10.2); Chol/HDL Ratio 4.3 (1-3.5); Cholesterol 130 mg/dl (140-200); Globulin 2.4 g/dL (1.3-3.2); Glucose 125 mg/dl (74-100); HDL Cholesterol 30 mg/dl (40-60); Total Protein,Serum 7.2 g/dl (6.3-8.2); Triglycerides 243 mg/dl (30-150); VLDL Cholesterol 49 mg/dL (0-40)
[2022-02-24 09:08] LABS: Direct LDL Cholesterol 56.38 mg/dL (100-129)
[2022-02-24 10:24] LABS: Hemoglobin A1C 7.4 % (4.0-6.0)
== END ==
PROVIDERS: PCP Internal Medicine Adolescent Medicine; Visit Provider Internal Medicine Adolescent Medicine
DX: E11.9 Type 2 diabetes mellitus without complications (principal); E78.5 Hyperlipidemia, unspecified; Z79.84 Long term (current) use of oral hypoglycemic drugs
CPT/HCPCS: 36415; 80053; 80061; 83036; 85025

== ENCOUNTER → 2022-04-18 07:22 | Outpatient (CLI) | payer MEDICARE, BC, SELFPAY ==
[2022-04-18 07:33] LABS: Microscopic, Urine URINE MICROSCOPIC (MICROSCOPIC)
[2022-04-18 09:42] LABS: Basophils % 0.6 % (0.1-2.0); Eosinophils # 0.1 K/mm3 (0.0-0.4); Eosinophils % 1.4 % (0.1-12.0); Hematocrit 50.9 % (42.0-52.0); Hemoglobin 16.8 g/dL (14.1-18.0); Lymphocytes # 1.8 K/mm3 (0.7-4.5); Lymphocytes % 24.4 % (10-50); Mean Corpuscular Hemoglobin 28.8 pg (27.0-31.2); Mean Corpuscular Volume 87.3 fl (80-94); Mean Platelet Volume 9.3 fl (7.4-10.4); Monocytes # 0.4 K/mm3 (0.1-1.0); Neutrophils % 68.6 % (37.0-80.0); Platelet Count 218 K/mm3 (142-424); Red Blood Count 5.84 M/mm3 (4.60-6.20); Red Cell Distribution Width 13.5 % (11.5-17.5); White Blood Count 7.3 K/mm3 (4.8-10.8)
[2022-04-18 09:50] LABS: Appearance,Urine CLEAR (Clear); Bilirubin,Urine Negative (Negative); Blood, Urine Negative (Negative); Color,Urine YELLOW (Yellow); Glucose,Urine (UA) 3+ (Negative); Ketones,Urine Negative (Negative); Leukocyte Esterase,Urine Negative (Negative); Nitrate,Urine Negative (Negative); Protein,Urine Negative (Negative); Urobilinogen,Urine 0.2 EU/dl (0.2)
[2022-04-18 09:59] LABS: RBC,Urine Occasional #/hpf (0-3); Yeast,Urine 2+ /lpf
[2022-04-18 10:20] LABS: Albumin Level 4.5 g/dl (3.5-5.0); Anion Gap 13.4 mEq/L (5-15); Blood Urea Nitrogen 13 mg/dl (9-20); Calcium 9.2 mg/dl (8.4-10.2); Carbon Dioxide 26 mmol/L (22.0-30.0); Chloride 104 mmol/L (98-107); Estimated Glomerular Filt Rate 75 ml/min (>60); GFR (African American) 91 ML/MIN (>60); Glucose 154 mg/dl (74-100); Phosphorous 3.9 mg/dl (2.5-4.5); Potassium 4.4 mmoL/L (3.5-5.1); Sodium 139 mmol/L (136-145)
[2022-04-18 10:24] LABS: Creatinine,Urine Random 85 mg/dL (Not Estab.)
[2022-04-18 10:34] LABS: 25-OH Vitamin D, Total 58.4 ng/mL (30-100)
== END ==
PROVIDERS: PCP Internal Medicine Adolescent Medicine; Visit Provider Internal Medicine Nephrology
DX: N18.2 Chronic kidney disease, stage 2 (mild) (principal); I10 Essential (primary) hypertension; E55.9 Vitamin D deficiency, unspecified
CPT/HCPCS: 36415; 80069; 81001; 82306; 82570; 84155; 85025

== ENCOUNTER → 2022-04-21 14:34 | Outpatient (POV) | payer MEDICARE, BC, SELFPAY | PROVIDERS: Visit Provider Internal Medicine Nephrology | DX: Z00.00 Encounter for general adult medical examination without abnormal findings (principal) ==

== ENCOUNTER → 2022-08-28 06:48 | Outpatient (CLI) | payer MEDICARE, BC, SELFPAY ==
[2022-08-28 08:09] LABS: Basophils % 0.5 % (0.1-2.0); Eosinophils # 0.1 K/mm3 (0.0-0.4); Eosinophils % 1.5 % (0.1-12.0); Hematocrit 51.1 % (42.0-52.0); Hemoglobin 16.9 g/dL (14.1-18.0); Lymphocytes # 2.1 K/mm3 (0.7-4.5); Lymphocytes % 33.9 % (10-50); Mean Corpuscular HGB Conc 33.2 g/dL (31.8-35.4); Mean Corpuscular Hemoglobin 28.6 pg (27.0-31.2); Mean Corpuscular Volume 86.2 fl (80-94); Mean Platelet Volume 9.2 fl (7.4-10.4); Monocytes # 0.5 K/mm3 (0.1-1.0); Monocytes % 7.2 % (1.7-9.3); Neutrophils # 3.6 K/mm3 (1.8-7.8); Platelet Count 170 K/mm3 (142-424); Red Blood Count 5.92 M/mm3 (4.60-6.20); Red Cell Distribution Width 13.7 % (11.5-17.5); White Blood Count 6.3 K/mm3 (4.8-10.8)
[2022-08-28 08:57] LABS: Hemoglobin A1C 7.9 % (4.0-6.0)
[2022-08-28 09:10] LABS: Chloride 98 mmol/L (98-107); Potassium 4.5 mmoL/L (3.5-5.1); Sodium 139 mmol/L (136-145)
[2022-08-28 09:13] LABS: Alanine Aminotransferase 34 U/L (12-78); Albumin Level 4.7 g/dl (3.5-5.0); Albumin/Globulin Ratio 1.7 (1.1-1.8); Alkaline Phosphatase 90 U/L (38-126); Anion Gap 15.5 mEq/L (5-15); Aspartate Amino Transferase 31 U/L (17-59); Bilirubin,Total 0.6 mg/dl (0.2-1.3); Blood Urea Nitrogen 17 mg/dl (9-20); Calcium 9.7 mg/dl (8.4-10.2); Carbon Dioxide 30 mmol/L (22.0-30.0); Chol/HDL Ratio 3.8 (1-3.5); Cholesterol 122 mg/dl (140-200); Estimated Glomerular Filt Rate 67 ml/min (>60); GFR (African American) 82 ML/MIN (>60); Globulin 2.8 g/dL (1.3-3.2); Glucose 114 mg/dl (74-100); HDL Cholesterol 32 mg/dl (40-60); Total Protein,Serum 7.5 g/dl (6.3-8.2); Triglycerides 232 mg/dl (30-150); VLDL Cholesterol 46 mg/dL (0-40)
[2022-08-28 09:24] LABS: Direct LDL Cholesterol 52.13 mg/dL (100-129)
== END ==
PROVIDERS: PCP Internal Medicine Adolescent Medicine; Visit Provider Internal Medicine Adolescent Medicine
DX: E78.5 Hyperlipidemia, unspecified (principal); E11.9 Type 2 diabetes mellitus without complications; Z79.84 Long term (current) use of oral hypoglycemic drugs
CPT/HCPCS: 36415; 80053; 80061; 83036; 85025

== ENCOUNTER → 2023-01-01 07:19 | Outpatient (CLI) | payer MEDICARE, SELFPAY ==
[2023-01-01 07:47] LABS: Basophils % 0.4 % (0.1-2.0); Eosinophils # 0.1 K/mm3 (0.0-0.4); Eosinophils % 1.9 % (0.1-12.0); Hematocrit 49.6 % (42.0-52.0); Hemoglobin 17.4 g/dL (14.1-18.0); Lymphocytes # 1.8 K/mm3 (0.7-4.5); Lymphocytes % 30.1 % (10-50); Mean Corpuscular HGB Conc 35.1 g/dL (31.8-35.4); Mean Corpuscular Hemoglobin 30.7 pg (27.0-31.2); Mean Corpuscular Volume 87.5 fl (80-94); Mean Platelet Volume 8.7 fl (7.4-10.4); Monocytes # 0.4 K/mm3 (0.1-1.0); Monocytes % 5.8 % (1.7-9.3); Neutrophils # 3.7 K/mm3 (1.8-7.8); Neutrophils % 61.9 % (37.0-80.0); Platelet Count 143 K/mm3 (142-424); Red Blood Count 5.67 M/mm3 (4.60-6.20); Red Cell Distribution Width 13.7 % (11.5-17.5)
[2023-01-01 08:25] LABS: Hemoglobin A1C 7.1 % (4.0-6.0)
[2023-01-01 13:08] LABS: Alanine Aminotransferase 41 U/L (12-78); Albumin Level 4.8 g/dl (3.5-5.0); Albumin/Globulin Ratio 1.8 (1.1-1.8); Alkaline Phosphatase 74 U/L (38-126); Anion Gap 17.5 mEq/L (5-15); Aspartate Amino Transferase 36 U/L (17-59); Bilirubin,Total 0.9 mg/dl (0.2-1.3); Blood Urea Nitrogen 22 mg/dl (9-20); Calcium 9.6 mg/dl (8.4-10.2); Carbon Dioxide 28 mmol/L (22.0-30.0); Chloride 99 mmol/L (98-107); Chol/HDL Ratio 4.8 (1-3.5); Cholesterol 129 mg/dl (140-200); Estimated Glomerular Filt Rate 75 ml/min (>60); GFR (African American) 91 ML/MIN (>60); Globulin 2.6 g/dL (1.3-3.2); Glucose 129 mg/dl (74-100); HDL Cholesterol 27 mg/dl (40-60); Potassium 4.5 mmoL/L (3.5-5.1); Sodium 140 mmol/L (136-145); Total Protein,Serum 7.4 g/dl (6.3-8.2); Triglycerides 213 mg/dl (30-150); VLDL Cholesterol 43 mg/dL (0-40)
[2023-01-01 13:19] LABS: Direct LDL Cholesterol 63.76 mg/dL (100-129)
== END ==
PROVIDERS: PCP Internal Medicine Adolescent Medicine; Visit Provider Internal Medicine Adolescent Medicine
DX: E11.9 Type 2 diabetes mellitus without complications (principal); Z79.84 Long term (current) use of oral hypoglycemic drugs
CPT/HCPCS: 36415; 80053; 80061; 83036; 85025

== ENCOUNTER 2023-05-27 08:22 | Outpatient (CLI) | payer MEDICARE, SELFPAY ==
[2023-05-27 09:32] LABS: Chloride 101 mmol/L (98-107); Potassium 4.1 mmoL/L (3.5-5.1); Sodium 138 mmol/L (136-145)
[2023-05-27 09:34] LABS: Alanine Aminotransferase 33 U/L (12-78); Blood Urea Nitrogen 15 mg/dl (9-20); Estimated Glomerular Filt Rate 67 ml/min (>60); GFR (African American) 81 ML/MIN (>60)
[2023-05-27 09:35] LABS: Albumin Level 4.7 g/dl (3.5-5.0); Albumin/Globulin Ratio 1.9 (1.1-1.8); Alkaline Phosphatase 97 U/L (38-126); Anion Gap 11.1 mEq/L (5-15); Aspartate Amino Transferase 32 U/L (17-59); Bilirubin,Total 0.8 mg/dl (0.2-1.3); Calcium 9.8 mg/dl (8.4-10.2); Carbon Dioxide 30 mmol/L (22.0-30.0); Chol/HDL Ratio 5.5 (1-3.5); Cholesterol 142 mg/dl (140-200); Globulin 2.5 g/dL (1.3-3.2); Glucose 153 mg/dl (74-100); HDL Cholesterol 26 mg/dl (40-60); Total Protein,Serum 7.2 g/dl (6.3-8.2); Triglycerides 363 mg/dl (30-150); VLDL Cholesterol 73 mg/dL (0-40)
[2023-05-27 09:46] LABS: Direct LDL Cholesterol 54.85 mg/dL (100-129)
[2023-05-27 14:24] LABS: Hemoglobin A1C 8.6 % (4.0-6.0)
== END 2023-05-27 23:59 ==
LOC: LAB 08:23
PROVIDERS: PCP Internal Medicine Adolescent Medicine; Visit Provider Internal Medicine Adolescent Medicine
DX: E11.9 Type 2 diabetes mellitus without complications (principal); E78.5 Hyperlipidemia, unspecified; Z79.84 Long term (current) use of oral hypoglycemic drugs
CPT/HCPCS: 36415; 80053; 80061; 83036

== ENCOUNTER 2023-09-25 06:58 | Outpatient (CLI) | payer MEDICARE, SELFPAY ==
[2023-09-25 08:50] LABS: Basophils % 0.5 % (0.1-2.0); Eosinophils # 0.2 K/mm3 (0.0-0.4); Eosinophils % 2.2 % (0.1-12.0); Hematocrit 44.1 % (42.0-52.0); Lymphocytes # 2.2 K/mm3 (0.7-4.5); Mean Corpuscular HGB Conc 38.6 g/dL (31.8-35.4); Mean Corpuscular Hemoglobin 34.6 pg (27.0-31.2); Mean Corpuscular Volume 89.8 fl (80-94); Mean Platelet Volume 9.3 fl (7.4-10.4); Monocytes # 0.5 K/mm3 (0.1-1.0); Monocytes % 6.6 % (1.7-9.3); Neutrophils # 4.1 K/mm3 (1.8-7.8); Neutrophils % 58.8 % (37.0-80.0); Platelet Count 162 K/mm3 (142-424); Red Blood Count 4.92 M/mm3 (4.60-6.20); Red Cell Distribution Width 14.5 % (11.5-17.5)
[2023-09-25 09:32] LABS: Alanine Aminotransferase 31 U/L (12-78); Albumin Level 4.7 g/dl (3.5-5.0); Albumin/Globulin Ratio 1.7 (1.1-1.8); Alkaline Phosphatase 79 U/L (38-126); Anion Gap 14.5 mEq/L (5-15); Aspartate Amino Transferase 35 U/L (17-59); Bilirubin,Total 0.8 mg/dl (0.2-1.3); Blood Urea Nitrogen 17 mg/dl (9-20); Calcium 10.1 mg/dl (8.4-10.2); Carbon Dioxide 28 mmol/L (22.0-30.0); Chloride 102 mmol/L (98-107); Chol/HDL Ratio 4.3 (1-3.5); Cholesterol 146 mg/dl (140-200); Estimated Glomerular Filt Rate 67 ml/min (>60); GFR (African American) 81 ML/MIN (>60); Globulin 2.7 g/dL (1.3-3.2); Glucose 152 mg/dl (74-100); HDL Cholesterol 34 mg/dl (40-60); Potassium 4.5 mmoL/L (3.5-5.1); Sodium 140 mmol/L (136-145); Total Protein,Serum 7.4 g/dl (6.3-8.2); Triglycerides 208 mg/dl (30-150); VLDL Cholesterol 42 mg/dL (0-40)
[2023-09-25 09:43] LABS: Direct LDL Cholesterol 69.83 mg/dL (100-129)
[2023-09-25 12:13] LABS: Hemoglobin A1C 7.9 % (4.0-6.0)
== END 2023-09-25 23:59 | disposition home or self-care (01) ==
LOC: LAB 07:01
PROVIDERS: PCP Internal Medicine Adolescent Medicine; Visit Provider Internal Medicine Adolescent Medicine
DX: E11.59 Type 2 diabetes mellitus with other circulatory complications (principal); I25.10 Atherosclerotic heart disease of native coronary artery without angina pectoris
CPT/HCPCS: 36415; 80053; 80061; 83036; 85025

== ENCOUNTER 2024-03-10 08:22 | Day surgery (SDC) | payer MEDICARE, SELFPAY ==
[2024-03-03 10:49] VITALS: BMI 31.4
[2024-03-10 08:47] VITALS: BP 149/86; PULSE 85; RESP 18; TEMP 36.6; O2SAT 96
[2024-03-10] MEDS: LACTATED RINGERS 1000ML 1,000 ML 25 ML IV (08:55)
[2024-03-10 08:59] LABS: POC Glucose,Bedside 235 (70-110)
[2024-03-10 09:10] VITALS: O2SAT 98
--- NOTE | 2024-03-10 09:11 | EXP.ANES.CKL ---
[facility] Disclaimer: The information contained in this section may have been updated after the patient was seen, as this information can be updated by other users. Medical History History of diabetes mellitus History of obstructive sleep apnea History of hypertension History of left heart catheterization History of hyperlipidemia Surgical History History of hernia repair History of colonoscopy with polypectomy History of colonoscopy Family History Other Family history of [place] (myocardial infarction) Family history of lung cancer Social History (Updated 03/10/24 @ 08:54 by Uyen Umanzor RN) Smoking Status: Former smoker tobacco type: smokeless tobacco second hand exposure: No (snuff) alcohol intake: former substance use type: denies use current occupational status: retired Travel in the last 8 weeks: None household members: spouse housing: house current occupational exposures/hazards: No caffeine: Yes Have you lived/traveled outside US in past 30 days?: No Contact w/someone who lives/traveled outside US past 30 days?: No Exposure to someone with infectious disease in past 14 days?: No Do you have a fever (greater than 100.4 F or 38 C)?: No Have you tested positive for COVID-19: No Exposed to someone with COVID-19 in past 14 days?: No Do you have a sore throat?: No Do you have a cough?: No Do you have any weakness?: No Are you experiencing any nausea/vomitting?: No Do you have any diarrhea?: No Are you experiencing any unusual bleeding?: No Do you have any muscle aches/pain?: No Do you have any abdominal pain?: No Are you experiencing loss of taste or smell?: No [facility] Anesthesia Checklist Patient Identification Patient Identification: Arm Band Structural Data Admitted From: Home Planned Operative Procedure/s: Colonoscopy Consent for Planned Operative Procedure(s) Verified: Yes Verified Documents: Surgical Consent and History and Physical NPO Status Verified Time NPO: 00:00 Additional verifications Anesthesia Reactions: No Hx Blood Transfusions: No Blood Transfusion Reaction: No Airway Assessment Mallampati Score:: Class II C-Spine Mobility Assessed: Yes TMJ Mobility Assessed: Yes Dentition: Good Dentition Neurological Assessment Level of Consciousness: Awake, Alert and Appropriate Anesthesia Plan Anesthesia Risk discussed: Yes Anesthesia Plan: Verified ASA Class: III Anesthesia Type: MAC
--- NOTE | 2024-03-10 09:19 | P.HP_ITS ---
History of Present Illness *Admission Date: 03/10/24 *Reason for visit:: Surveillance colonoscopy-personal history of adenomatous polyps *History of present illness: Mr. Benavidez is a 68-year-old gentleman who is here for surveillance colonoscopy secondary to a personal history of adenomatous colon polyps. The examination is deemed medically necessary for surveillance colonoscopy. The patient has been seen, interviewed and examined prior to the procedure by both myself and the anesthesia provider. [facility] Disclaimer: The information contained in this section may have been updated after the patient was seen, as this information can be updated by other users. Medical History (Updated 03/10/24 @ 09:24 by Roel Hill II, MD) History of diabetes mellitus History of obstructive sleep apnea History of hypertension History of left heart catheterization History of hyperlipidemia Surgical History History of hernia repair History of colonoscopy with polypectomy History of colonoscopy Family History Other Family history of [place] (myocardial infarction) Family history of lung cancer Social History (Updated 03/10/24 @ 08:54 by Uyen Umanzor RN) Smoking Status: Former smoker tobacco type: smokeless tobacco second hand exposure: No (snuff) alcohol intake: former substance use type: denies use current occupational status: retired Travel in the last 8 weeks: None household members: spouse housing: house current occupational exposures/hazards: No caffeine: Yes Have you lived/traveled outside US in past 30 days?: No Contact w/someone who lives/traveled outside US past 30 days?: No Exposure to someone with infectious disease in past 14 days?: No Do you have a fever (greater than 100.4 F or 38 C)?: No Have you tested positive for COVID-19: No Exposed to someone with COVID-19 in past 14 days?: No Do you have a sore throat?: No Do you have a cough?: No Do you have any weakness?: No Are you experiencing any nausea/vomitting?: No Do you have any diarrhea?: No Are you experiencing any unusual bleeding?: No Do you have any muscle aches/pain?: No Do you have any abdominal pain?: No Are you experiencing loss of taste or smell?: No Other Medical History Have you received the Flu Vaccine for this season: Yes Have you received the Pneumonia Vaccine: Yes Review of Systems Review of Systems Review of systems (narrative): Negative *Cardiovascular Comments: Negative *Gastrointestinal Comments: Negative *Genitourinary Comments: Negative *Musculoskeletal Comments: Negative *Neurologic Comments: Negative Meds Home Medications and Allergies Home Medications ?Medication ?Instructions ?Recorded ?Confirmed ?Type rosuvastatin 20 mg tablet 20 mg PO HS Cholesterol 03/29/17 03/10/24 History acetaminophen 500 mg tablet 500 mg PO Q6H PRN pain 06/03/18 03/10/24 History sitagliptin phos 100 mg-metformin 1 tab PO DAILY Diabetes 06/03/18 03/10/24 History ER 1,000 mg tablet,extend rel 24h mp (Janumet XR) glimepiride 2 mg tablet 2 mg PO DAILY diabets 07/25/19 03/10/24 History lisinopril 5 mg tablet 5 mg PO DAILY bp 07/25/19 03/10/24 History aspirin 81 mg tablet,delayed 81 mg PO DAILY heart health 07/27/19 03/10/24 History release nifedipine 30 mg tablet,extended 30 mg PO DAILY bp 09/16/19 03/10/24 History release 24 hr dapagliflozin propanediol 10 mg 10 mg PO DAILY Diabetes 03/16/20 03/10/24 History tablet omeprazole 20 mg capsule,delayed 20 mg PO DAILY PRN gerd 09/14/20 03/10/24 History release cholecalciferol (vitamin D3) 25 2,000 unit PO DAILY Supplement 09/18/20 03/10/24 History mcg (1,000 unit) capsule multivitamin 1 tab PO DAILY Supplement 09/18/20 03/10/24 History fluticasone propionate 50 1 spray intranasal DAILY #16 grams 05/12/23 03/10/24 Rx mcg/actuation nasal spray,suspension (Flonase Allergy Relief) fexofenadine 180 mg tablet 180 mg PO Q24H 03/10/24 03/10/24 History New Prescriptions to Start Prescriptions: Allergies Allergy/AdvReac Type Severity Reaction Status Date / Time acetaminophen (From Percocet) Allergy Intermediate Nausea Verified 03/10/24 08:42 codeine Allergy Intermediate I-ITCHING Verified 03/10/24 08:42 oxycodone (From Percocet) Allergy Intermediate Nausea Verified 03/10/24 08:42 Exam Data for Last 24 hours Vital signs and Labs for Last 24 Hours: Temp Pulse Resp BP Pulse Ox O2 Del Method O2 Flow Rate 97.8 F 85 18 149/86 H 96 Nasal Cannula 5 03/10/24 08:47 03/10/24 08:47 03/10/24 08:47 03/10/24 08:47 03/10/24 08:47 03/10/24 09:10 03/10/24 09:10 Laboratory Results - last 24 hr 03/10/24 08:51: POC Glucose 235 H *Routine HEENT Exam Head: Present normocephalic Eye: Present EOMI and PERRL ENT: Present mucous membranes moist *Routine Neck Exam Neck: Present supple *Routine Respiratory Exam Respiratory: Present CTA bilaterally *Routine Cardiovascular Exam Cardiovascular: Present RRR *Routine Abdominal Exam Abdominal: Present soft and normoactive bowel sounds; Absent tenderness *Routine Rectal Exam Rectal:: deferred *Routine Genitalia Exam Genitalia:: deferred *Routine Extremities Exam Extremities: Absent cyanosis, clubbing or edema *Routine Skin Exam Skin: Present warm; Absent rash *Routine Neurological Exam Neurological: Present alert and oriented X3 Assessment and Plan *Assessment and plan (1) Personal history of adenomatous and serrated colon polyps: Status: Acute Category: Medical Code(s): Z86.0101 - Personal history of adenomatous and serrated colon polyps Plan A/P: 1. Personal history of adenomatous colon polyps is the preprocedural diagnosis. The patient will be anesthetized/sedated using MAC sedation. The patient has been seen and examined. Cardiac and lung assessment prior to the examination is stable. Proceed with planned surveillance colonoscopy
--- NOTE | 2024-03-10 09:24 | HMH.PROCNOTE ---
[facility] Procedure Note Date: 03/10/24 Time: 09:40 Procedure Note:: Colonoscopy Procedure Report: Colonoscopy with cold snare polypectomy Endoscopist: Roel Hill II, MD Referring physician: Sacha Dickson M.D. Date of Procedure: March 10, 2022 Equipment: Olympus 190 variable stiffness pediatric colonoscope Sedation: MAC sedation Indication: Mr. Benavidez is a 68-year-old gentleman with a personal history of adenomatous colon polyps. His colonoscopy in July 2015 (Florentin Velazquez M.D.) showed 3 polyps (tubular adenomas x 2/hyperplastic polyp x 1) which were removed. The patient did have another colonoscopy in November 2017 that revealed 4 polyps (hyperplastic polyps x 2/mucosal prolapse polyps x 2) which were removed. The patient's last colonoscopy by Dr. Florentin Velazquez M.D. in September 2020 revealed a single polyp (hyperplastic polyp) which was removed. The patient reports no abdominal pain, weight loss, change in his bowel habits or rectal bleeding. He reports no family history of colon cancer. Procedure: Prior to the procedure, a history and physical exam was performed, and patient's medications and allergies were reviewed. The risks, benefits and alternatives of the sedation and procedure were discussed with the patient. All questions were answered and informed consent was obtained. The patient was brought to the procedure room. Patient identification and proposed procedure were verified by the physician and the nurse. The patient was placed in a left lateral decubitus position and the scope was passed under direct vision. Throughout the procedure, the patient's blood pressure, pulse, and oxygen saturations were monitored continuously. The colonoscopy was accomplished without difficulty. The patient tolerated the procedure well. Findings: On digital rectal examination there was normal rectal tone. There were no external hemorrhoids but external hemorrhoidal tags. The prostate was 2+, smooth, soft, symmetric without nodules. The colonoscope was introduced through the anal canal to the rectum and advanced to the cecum. The ileocecal valve and appendiceal orifice were identified. The scope was advanced a short distance into the ileum which appeared grossly normal. The scope was then withdrawn into the colon. The cecum, ascending and transverse colon and mucosa were grossly normal. There was a 9 mm sessile polyp in the descending colon removed via cold snare polypectomy. There were scattered diverticuli throughout the descending and sigmoid colon (LEFT colon). The rectum itself was normal. Upon retroflexion within the rectum there were grade 2 internal hemorrhoids. The preparation was excellent throughout with [place] Preparation Score of 9. The cecal time was 12 minutes. Impression: 1. Descending colon polyp (9 mm) 2. Left-sided diverticulosis 3. Grade 2 internal hemorrhoids Plan: I will follow-up the polyp histology and recommend repeat surveillance colonoscopy again in 5 to 7 years based upon the pathology. I would encourage bulking psyllium fiber supplementation on a long-term daily maintenance basis.
[2024-03-10 09:43] VITALS: BP 90/58; PULSE 69; RESP 16; TEMP 36.3; O2SAT 96
[2024-03-10 09:53] VITALS: BP 100/61; PULSE 77; RESP 16; O2SAT 97
[2024-03-10 10:03] VITALS: BP 104/67; PULSE 75; RESP 16; O2SAT 96
[2024-03-10 10:13] VITALS: BP 107/65; PULSE 67; RESP 16; O2SAT 98
== END 2024-03-10 10:17 | disposition home or self-care (01) ==
PROVIDERS: PCP Internal Medicine Adolescent Medicine; Visit Provider Internal Medicine Gastroenterology
PROC: (CPT 45385; principal; 2024-03-10 10:00)
DX: D12.4 Benign neoplasm of descending colon (principal); K57.30 Diverticulosis of large intestine without perforation or abscess without bleeding; K64.1 Second degree hemorrhoids; Z86.0101 Personal history of adenomatous and serrated colon polyps; E11.9 Type 2 diabetes mellitus without complications; Z79.84 Long term (current) use of oral hypoglycemic drugs
CPT/HCPCS: 45385; 82962; J7120

== ENCOUNTER 2024-05-02 07:27 | Outpatient (CLI) | payer MEDICARE, SELFPAY ==
[2024-05-02 07:57] LABS: Basophils % 0.8 % (0.1-2.0); Eosinophils # 0.2 K/mm3 (0.0-0.4); Eosinophils % 2.8 % (0.1-12.0); Hematocrit 50.3 % (42.0-52.0); Hemoglobin 16.3 g/dL (14.1-18.0); Lymphocytes # 1.7 K/mm3 (0.7-4.5); Lymphocytes % 31.8 % (10-50); Mean Corpuscular HGB Conc 32.4 g/dL (31.8-35.4); Mean Corpuscular Hemoglobin 28.1 pg (27.0-31.2); Mean Corpuscular Volume 86.6 fl (80-94); Mean Platelet Volume 10.8 fl (7.4-10.4); Monocytes # 0.3 K/mm3 (0.1-1.0); Monocytes % 5.7 % (1.7-9.3); Neutrophils # 3.1 K/mm3 (1.8-7.8); Neutrophils % 58.5 % (37.0-80.0); Platelet Count 170 K/mm3 (142-424); Red Blood Count 5.81 M/mm3 (4.60-6.20); Red Cell Distribution Width 12.9 % (11.5-17.5); White Blood Count 5.3 K/mm3 (4.8-10.8)
[2024-05-02 08:18] LABS: Albumin Level 4.8 g/dl (3.5-5.0); Chloride 101 mmol/L (98-107); Potassium 4.2 mmoL/L (3.5-5.1); Sodium 139 mmol/L (136-145)
[2024-05-02 08:21] LABS: Alanine Aminotransferase 47 U/L (12-78); Albumin/Globulin Ratio 2.1 (1.1-1.8); Alkaline Phosphatase 91 U/L (38-126); Anion Gap 13.2 mEq/L (5-15); Aspartate Amino Transferase 46 U/L (17-59); Bilirubin,Total 0.9 mg/dl (0.2-1.3); Blood Urea Nitrogen 17 mg/dl (9-20); Carbon Dioxide 29 mmol/L (22.0-30.0); Cholesterol 123 mg/dl (140-200); Estimated Glomerular Filt Rate 75 ml/min (>60); GFR (African American) 90 ML/MIN (>60); Globulin 2.3 g/dL (1.3-3.2); Total Protein,Serum 7.1 g/dl (6.3-8.2); Triglycerides 262 mg/dl (30-150); Uric Acid 5.9 mg/dl (3.5-8.5); VLDL Cholesterol 52 mg/dL (0-40)
[2024-05-02 08:22] LABS: Calcium 9.2 mg/dl (8.4-10.2); Chol/HDL Ratio 5.3 (1-3.5); Glucose 163 mg/dl (74-100); HDL Cholesterol 23 mg/dl (40-60)
[2024-05-02 08:33] LABS: Direct LDL Cholesterol 40.08 mg/dL (100-129)
[2024-05-02 08:49] LABS: Hemoglobin A1C 9.4 % (4.0-6.0)
== END 2024-05-02 23:59 | disposition home or self-care (01) ==
LOC: LAB 07:28
PROVIDERS: PCP Internal Medicine Adolescent Medicine; Visit Provider Internal Medicine Adolescent Medicine
DX: E78.5 Hyperlipidemia, unspecified (principal); E11.22 Type 2 diabetes mellitus with diabetic chronic kidney disease; N18.9 Chronic kidney disease, unspecified; E11.59 Type 2 diabetes mellitus with other circulatory complications; Z79.84 Long term (current) use of oral hypoglycemic drugs; M10.9 Gout, unspecified
CPT/HCPCS: 36415; 80053; 80061; 83036; 84550; 85025

== ENCOUNTER 2024-08-15 06:44 | Outpatient (CLI) | payer MEDICARE, SELFPAY ==
--- OUTSIDE RECORDS SUMMARY | 2024-08-15 06:46 | XMS_ITS | Clinical Summary ---
Author Organization [facility] Address [address] [place] [address] Care Team Providers Care Operational Communication Chief Name Role Phone Sacha Dickson MD Primary Care Provider [phone] Allergies Active Allergy Reactions Criticality Noted Date Comments Codeine Unknown - Patient st ates they do not know rxn details Low 06/03/2017 Oxycodone-Acetaminophen Unknown - Patien t states they do not know rxn details Low 03/24/2018 Medications acetaminophen (Tylenol) 325 MG tablet Take 325 mg by mouth if needed for mild pain. 06/03/2017 Active aspirin (HM Aspirin EC Low Dose) 81 MG EC tablet Take 81 mg by mouth 1 (one) time each day. Take 1 tablet daily 06/03/2018 Active lisinopril 5 MG tablet Take 5 mg by mouth 1 (one) time each day. Take 1 tablet daily 03/24/2018 Active Multiple Vitamin (multivitamin) tablet Take 1 tablet by mouth 1 (one) time each day. Take 1 tablet daily 09/22/2018 Active rosuvastatin (Crestor) 20 MG tablet Take 20 mg by mouth 1 (one) time each day. Take 1 tablet daily 03/12/2017 Active cholecalciferol (Vitamin D-3) 50 MCG (2000 UT) capsule Take 2,000 Units by mouth 1 (one) time each day. Take 1 capsule daily 02/21/2020 Active dapagliflozin (Farxiga) 10 MG Take 10 mg by mouth 1 (one) time each day. 1 tab daily Active SITagliptin-met FORMIN HCl ER 100-1000 MG tablet sustained-relea se 24 hour Take 100-1,000 mg by mouth 1 (one) time each day. 1 tab daily Active NIFEdipine XL (Procardia XL) 30 MG 24 hr tablet Take 30 mg by mouth 1 (one) time each day. Do not crush, chew, or split. Active glimepiride (Amaryl) 2 MG tablet 04/01/2021 Active Active Problems Problem Noted Date Diagnosed Date CKD (chronic kidney disease) stage 2, GFR 60-89 ml/min 04/12/2021 Vitamin D deficiency 04/12/2021 Essential hypertension 04/12/2021 Hyperlipidemia 04/12/2021 Type 2 diabetes mellitus wit h stage 2 chronic kidney disease, without long-term current use of insulin 04/12/2021 Immunizations Immunization Administration Dates Next Due Influenza, injectable, quadrivalent 12/25/2017 Influenza, injectable, quadrivalent, preservativ e free 12/07/2018 Pneumococcal Polysaccharide PPV23 12/25/2017 Td, Adsorbed, Preservative F ree, Adult Use, Lf Unspecified 02/02/2019 Family History Medical History Relation Name Comments Cardiac disorder Father Lung cancer Mother Relation Name Status Comments Father Mother Social History Tobacco Use Types Packs/Day Years Used Date Smoking Tobacco: Former Cigarettes Q uit: 1980 Smokeless Tobacco: Current Tobacco Cessation:Ready to Q uit: Not Asked; Counseling Given: Not Answered Alcohol Use Standard Drinks/Week Comments Not Currently 0 (1 standard drink = 0.6 oz pure alcohol) Alcoholic Drinks/day: History of alcohol use Sex and Gender Information Value Date Recorded Sex Assigned at Male 08/22/2020 1:12 PM EDT Legal Sex Male 8:24 PM EDT Gender Identity Male 08/22/2020 1:12 PM EDT Sexual Orientation Straight 08/22/2020 1: 12 PM EDT Last Filed Vital Signs Vital Sign Reading Time Taken Comments Blood Pressure 118/73 04/21/2022 3:03 PM EST Pulse 82 04/21/2022 3:03 PM EST Temperature 36.7 C (98 F) 09/30/2017 1:01 PM EDT Respiratory Rate - - Oxygen Saturation 93% 04/10/2021 1:49 PM EST Inhaled Oxygen Concentration - - Weight 88.8 kg (195 lb 12.8 oz) 04/21/2022 3:03 PM EST Height 167.6 cm (5' 6 ) 04/10/2021 1:49 PM EST Body Mass Index 31.6 04/10/2021 1:49 PM EST Plan of Treatment Health Maintenance Due Date Last Done Comments [facility]-Depression Screening 1955 [facility]-Medicare Annual Wellness (AWV) 1955 [facility]-/Child/Adol SDOH Screenings 1955 [facility]-Obesity Intervention 11/02/1963 Diabetes: Dental Exam 11/02/1967 [facility]- SDOH Screenings 11/02/1975 [facility]-Adult SDOH Screenings 11/02/1975 CT Colonography 2002 Colonoscopy 2002 FIT-DNA 2002 FIT 2002 FOBT 2002 Sigmoidoscopy 2002 [facility]-Colorectal Cancer Screening 2002 [facility]-Zoster Vaccines (1 of 2) 11/02/2007 [facility]-Diabetes: Hemoglobin A1C 10/04/2017 04/06/2017 [facility]-RSV Vaccine: 60+ Years o r (1 - Risk 60-74 years 1-dose series) 2017 [facility]-Pneumococcal Vaccine: 50 + Years (2 of 2 - PCV) 12/25/2018 12/25/2017 [facility]-DTaP,Tdap,and Td Vaccine s (1 - Tdap) 02/03/2019 02/02/2019 [id number] Vaccine (3 - season) 2023 04/17/2020, 03/16/2020 [facility]-Influenza Vaccine (Seaso n Ended) 2024 12/07/2018, 12/25/2017 [facility]-Hepatitis C Screening Completed 04/06/2017 HPV Vaccines Aged Out No longer eligi ble based on patient's age to complete this topic [facility]-HIB Vaccines Aged Out No longer e ligible based on patient's age to complete this topic [facility]-Hepatitis A Vaccines Aged Out No longer eligible based on patient's age to complete this topic [facility]-IPV Vaccines Aged Out No longer e ligible based on patient's age to complete this topic [facility]-Rotavirus Vaccines Aged Out No lo nger eligible based on patient's age to complete this topic Procedures Procedure Name Priority Date/Time Associated Diagnosis Comments ACUTE HEPATITIS PANEL Routine 04/06/2017 7:37 PM EST HEMOGLOBIN A1C Routine 04/06/2017 2:14 AM EST from Last 3 Months or Most Recently Relevant to Health Maintenance Results * Acute Hepatitis Panel (04/06/2017 7:37 PM EST) Hepatitis B Surf Antigen NEGATIVE Reference Value: Negative SUNQUEST Hepatitis C Antibody NEGATIVE Reference Range: Negative SUNQUEST Hepatitis A Antibody IgM NEGATIVE Reference Value: Negative SUNQUEST External Hepatitis B Core IgM (HBCM) NEGATIVE Reference Value: Negative SUNQUEST 04/06/2017 7:37 PM EST 04/06/2017 8:34 PM EST Historical Provider MD LAB BLOOD ORDERABLES Susan l Result Performing Organization Address [facility] de Phone Number SUNQUEST * (ABNORMAL) Hemoglobin A1c (04/06/2017 2:14 AM EST) Hemoglobin A1c 6.4(H) 4.7 - 6.0 % SUNQUEST Comment: Glycohemoglobin Reference Range, 0 years and up: 4.7 to 6.0% . HA1C Interpretive Data: Diagnosis of Diabetes: Diabetic > or = 6.5% Pre-diabetic 5.7 to 6.4% Non-diabetic < or = 5.6% . Glycemic Targets for Type I and Type II Diabetics: Non- Adults <7.0% Adults <6.0% Children and Adolescents <7.5% . Source: [place] [employer]. Standards of medical care in diabetes, 2017. Diabetes Care.2017:40 (suppl 1):S1-S135. . HbA1c assay performed by an ion-exchange chromatography method that is certified traceable to the DCCT. 04/06/2017 2:14 AM EST 04/06/2017 2:33 AM EST Historical Provider LAB BLOOD ORDERABLES Susan l Result Performing Organization Address [facility] Co de Phone Number SUNQUEST from Last 3 Months or Most Recently Relevant to Health Maintenance [place] [address] Care Teams Operational Communication Chief Relationship Specialty Start Date End Date Sacha Dickson MD [address] [place] [address] PCP - General 07/20/20
[2024-08-15 09:02] LABS: Anion Gap 15.6 mEq/L (5-15); Blood Urea Nitrogen 23 mg/dl (9-20); Calcium 9.1 mg/dl (8.4-10.2); Carbon Dioxide 23 mmol/L (22.0-30.0); Chloride 104 mmol/L (98-107); Estimated Glomerular Filt Rate 75 ml/min (>60); GFR (African American) 90 ML/MIN (>60); Glucose 111 mg/dl (74-100); Potassium 4.6 mmoL/L (3.5-5.1); Sodium 138 mmol/L (136-145)
== END 2024-08-15 23:59 | disposition home or self-care (01) ==
PROVIDERS: PCP Internal Medicine Adolescent Medicine; Visit Provider Internal Medicine Adolescent Medicine
DX: E11.59 Type 2 diabetes mellitus with other circulatory complications (principal)
CPT/HCPCS: 36415; 80048; 83036

== ENCOUNTER 2024-08-26 10:35 | Observation (INO) | payer MEDICARE, SELFPAY ==
[2024-08-26] VITALS (33 sets, daily range): BP systolic 94–131; BP diastolic 63–83; PULSE 38–190; RESP 13–32; TEMP 37.1–37.4; O2SAT 89–96; BMI 29.7
--- NOTE | 2024-08-26 10:40 | ECG_ITS ---
APPROVED REPORT Exam: Resting ECG HR:179 bpm ECG Measurements Heart Rate 179 AXES QRSd 112 QRS 268 QT 258 T 39 QTc 353 Conclusion ATRIAL FIBRILLATION WITH RAPID VENTRICULAR RESPONSE INCOMPLETE RIGHT BUNDLE BRANCH BLOCK [90+ ms QRS DURATION, TERMINAL R IN V1/V2, 40+ ms S IN I/aVL/V4/V5/V6] RIGHT VENTRICULAR HYPERTROPHY [SOME/ALL OF: PROMINENT R IN V1, LATE TRANSITION, RAD, JASEN, SSS] POSSIBLE ANTERIOR MYOCARDIAL INFARCTION , PROBABLY OLD [30 ms Q WAVE IN V3/V4, OR R < 0.2 mV IN V4] CRITICAL TEST RESULT INTERPRETATION BASED ON A DEFAULT AGE OF 40 YEARS UNCONFIRMED REPORT Electronically signed by : Deena White, 08/26/2024 11:54:31
--- OUTSIDE RECORDS SUMMARY | 2024-08-26 10:50 | XMS_ITS | Clinical Summary ---
Author Organization [facility] Address [address] [place] [address] Care Team Providers Care Software Maintenance Engineer Name Role Phone Sacha Dickson MD Primary Care Provider [phone] Allergies Active Allergy Reactions Criticality Noted Date [...] Screening 1955 [facility]-Medicare Annual Wellness (AWV) 1955 [facility]-Infant/Child/Adol SDOH Screenings 1955 [facility]-Obesity Intervention 11/02/1963 Diabetes: [...] Vaccine s (1 - Tdap) 02/03/2019 02/02/2019 [id number] Vaccine (3 - season) 2023 04/17/2020, 03/16/2020 [...] ORDERABLES Susan l Result Performing Organization Address [facility] de Phone Number SUNQUEST * (ABNORMAL) [...] <6.0% Children and Adolescents <7.5% . Source: [place] Diabetes Association. Standards of medical care in diabetes, 2017. Diabetes Care.2017:40 (suppl 1):S1-S135. . HbA1c assay performed by an ion-exchange chromatography method that is certified traceable to the DCCT. 04/06/2017 2:14 AM EST 04/06/2017 2:33 AM EST Historical Provider LAB BLOOD ORDERABLES Susan l Result Performing Organization Address [facility] Co de Phone Number SUNQUEST from Last 3 Months or Most Recently Relevant to Health Maintenance [place] [address] Care Teams Software Maintenance Engineer Relationship Specialty Start Date End Date Sacha Dickson MD [address] [place] [id number] PCP - General 07/20/20
--- NOTE | 2024-08-26 10:52 | CT_ITS ---
FINAL REPORT TECHNIQUE: Axial imaging of the chest is obtained after the administration of contrast. 3-D MIP reformatted images were also obtained and reviewed per PE protocol. Exam was performed using dose reduction technique. CLINICAL HISTORY: SOA, tachy COMPARISON: None. FINDINGS: There is no pulmonary embolus. Exam is nondiagnostic for aortic dissection due to contrast bolus timing. Heart is normal in size. There is no mediastinal, hilar, or axillary lymphadenopathy. There is no pleural or pericardial effusion. There are patchy bilateral lower lobe ground glass opacities. There are scattered reticulonodular opacities in the inferior aspect of the right upper lobe and within the right lower lobe. Findings are favored to be related to pneumonia. Limited evaluation of the upper abdomen is without acute abnormality. No acute osseous abnormality. IMPRESSION: No pulmonary embolus. Nondiagnostic for aortic dissection. Bilateral lower lobe findings concerning for pneumonia. Authenticated and ERN
--- NOTE | 2024-08-26 10:55 | PC.NURSE ---
Called RT to report VBG in lab
[2024-08-26] MEDS: METOPROLOL TARTRATE 5MG/5ML VIAL 5 MG IV ×3 (10:56→12:12)
[2024-08-26] MEDS: 0.9 % SODIUM CHLORIDE 1000ML 1,000 ML 999 ML IV (10:57)
[2024-08-26 10:58] LABS: Basophils % 0.4 % (0.1-2.0); Eosinophils # 0.2 Kmm3 (0.0-0.4); Eosinophils % 1.9 % (0.1-12.0); Hematocrit 49.8 % (42.0-52.0); Hemoglobin 16.8 g/dL (14.1-18.0); Immature Granulocytes # 0.18 10^3uL; Immature Granulocytes % 1.9 %; Lymphocytes # 2.1 K/mm3 (0.7-4.5); Lymphocytes % 22.9 % (10-50); Mean Corpuscular HGB Conc 33.7 g/dL (31.8-35.4); Mean Corpuscular Volume 85.9 fl (80-94); Monocytes # 0.7 K/mm3 (0.1-1.0); Monocytes % 7.8 % (1.7-9.3); Neutrophils # 6.1 K/mm3 (1.8-7.8); Neutrophils % 65.1 % (37.0-80.0); Nucleated Red Blood Cells # 0 10^3/uL; Nucleated Red Blood Cells % 0 %; Platelet Count 336 K/mm3 (142-424); Red Cell Distribution Width-SD 40.4 fL; White Blood Count 9.3 K/mm3 (4.8-10.8)
--- NOTE | 2024-08-26 11:02 | PC.NURSE ---
Patient was placed on the Zoll, at bedside at this time.
[2024-08-26 11:04] LABS: Albumin Level 4.2 g/dl (3.5-5.0); Chloride 99 mmol/L (98-107); Sodium 135 mmol/L (136-145)
[2024-08-26 11:06] LABS: Blood Urea Nitrogen 24 mg/dl (9-20); Creatinine Clearance Estimated 86 mL/min (50-200); Estimated Glomerular Filt Rate 75 ml/min (>60); GFR (African American) 90 ML/MIN (>60)
[2024-08-26 11:07] LABS: Alanine Aminotransferase 38 U/L (12-78); Albumin/Globulin Ratio 1.2 (1.1-1.8); Alkaline Phosphatase 119 U/L (38-126); Aspartate Amino Transferase 26 U/L (17-59); Bilirubin,Total 0.5 mg/dl (0.2-1.3); Calcium 9.8 mg/dl (8.4-10.2); Carbon Dioxide 30 mmol/L (22.0-30.0); Globulin 3.5 g/dL (1.3-3.2); Glucose 343 mg/dl (74-100); Total Protein,Serum 7.7 g/dl (6.3-8.2)
[2024-08-26 11:07] LABS: VBG Base Excess -1.6 mmol/L (-2.4-2.3); VBG HCO3 23.6 mmol/L (23-30); VBG PCO2 41.4 mmol/L (35-51); VBG PH 7.37 mmol/L (7.31-7.41); VBG PO2 94.4 mmol/L (28-40); VBG Total CO2 24.9 mmol/L (23-27)
[2024-08-26 11:10] LABS: Lactate Venous 2.3 mmol/L (0.4-2.0)
[2024-08-26 11:16] LABS: NT Pro Brain Natriuretic Pep. 129 pg/mL (0-125)
--- NOTE | 2024-08-26 11:17 | PC.NURSE ---
at bedside with US
[2024-08-26 11:23] LABS: Troponin I < 0.01 ng/ml (0.00-0.034)
[2024-08-26] MEDS: ACETAMINOPHEN 500MG TAB 1000 MG PO (11:30)
--- NOTE | 2024-08-26 11:36 | PC.NURSE ---
Pt to CT at this time
--- NOTE | 2024-08-26 11:36 | HMH.EDGENADL ---
Discharge Plan Disposition Patient Disposition: Admitted Condition: Good Prescriptions Prescriptions: No Action omeprazole 20 mg capsule,delayed release(DR/EC) 20 mg PO DAILY PRN (Reason: gerd) Janumet XR 100-1,000 mg tablet, ER multiphase 24 hr 1 tab PO DAILY acetaminophen 500 mg tablet 500 mg PO Q6H PRN (Reason: pain) lisinopril 5 mg tablet 5 mg PO DAILY glimepiride 2 mg tablet 2 mg PO DAILY nifedipine 30 mg tablet extended release 24hr 30 mg PO DAILY dapagliflozin propanediol 10 mg tablet 10 mg PO DAILY fluticasone propionate [Flonase Allergy Relief] 50 mcg/actuation spray,suspension 1 spray intranasal DAILY Qty: 16 2RF Rx Instructions: administer into each nostril levocetirizine 5 mg tablet 5 mg PO DAILY methocarbamol 500 mg tablet 500 mg PO TID PRN benzonatate 100 mg capsule 100 mg PO BID PRN aspirin 81 MG tablet,delayed release (DR/EC) 81 mg PO DAILY rosuvastatin 20 MG tablet 20 mg PO HS Patient Comments: TK 1 T PO QD HS multivitamin 1 EACH tablet 1 tab PO DAILY cholecalciferol (vitamin D3) 1,000 UNIT capsule 2,000 unit PO DAILY fexofenadine 180 mg Tablet 180 mg PO Q24H Referrals Follow up/Referrals: Sacha Dickson MD [Primary Care Provider, Internal Medicine] - See instructions Clinical Impressions Clinical Impression: Multifocal pneumonia A-fib Qualifiers: Atrial fibrillation type: unspecified Qualified Code(s): I48.91 - Unspecified atrial fibrillation Print Language Print Language: Irish Discharge ED Provider: Deena White General Adult HPI General Chief complaint: Arrhythmia/Palpitations Stated complaint: abnormal ekg Time Seen by Provider: 08/26/24 10:41 Mode of Arrival: Ambulatory Source of Information: Patient Description of Symptoms (Recalled from ER Triage Doc. by RN): Patient presents to ED after being sent from his PCP office for high heart rate with EKG reading A-fib. Patient states he has had a cough for 2 weeks, started z-pack, steriods, and albuterol inhaler. Patient's HR during triage is 178. Patient reports no pain at this time. History of Present Illness HPI narrative: Morgan Benavidez is a 68 y/o male presenting with palpitations. Patient reports 2 to 3 weeks of upper respiratory symptoms that have been managed with antibiotics, steroids and decongestant medications. He states he returned to his PCP office today due to continued symptoms and completion of these medications. There he was told that his EKG was abnormal and told to come to the ER. Patient has a history of coronary artery disease, prior heart cath with unknown stents and type 2 diabetes. Patient reports no current chest pain. Patient has a headache with significant nasal congestion. He also reports he is coughing up large amounts of thick mucus. Patient denies history of COPD, asthma. Patient is a prior smoker. Patient takes a daily baby aspirin, but no other blood thinners. To his knowledge, patient states he has never been in A-fib before. Related Data Home Medications ?Medication ?Instructions ?Recorded ?Confirmed rosuvastatin 20 mg tablet 20 mg PO HS Cholesterol 03/29/17 08/20/24 acetaminophen 500 mg tablet 500 mg PO Q6H PRN pain 06/03/18 08/20/24 sitagliptin phos 100 mg-metformin 1 tab PO DAILY Diabetes 06/03/18 08/20/24 ER 1,000 mg tablet,extend rel 24h mp (Janumet XR) glimepiride 2 mg tablet 2 mg PO DAILY diabets 07/25/19 08/20/24 lisinopril 5 mg tablet 5 mg PO DAILY bp 07/25/19 08/20/24 aspirin 81 mg tablet,delayed 81 mg PO DAILY heart health 07/27/19 08/20/24 release nifedipine 30 mg tablet,extended 30 mg PO DAILY bp 09/16/19 08/20/24 release 24 hr dapagliflozin propanediol 10 mg 10 mg PO DAILY Diabetes 03/16/20 08/20/24 tablet omeprazole 20 mg capsule,delayed 20 mg PO DAILY PRN gerd 09/14/20 08/20/24 release cholecalciferol (vitamin D3) 25 2,000 unit PO DAILY Supplement 09/18/20 08/20/24 mcg (1,000 unit) capsule multivitamin 1 tab PO DAILY Supplement 09/18/20 08/20/24 fexofenadine 180 mg tablet 180 mg PO Q24H 03/10/24 08/20/24 levocetirizine 5 mg tablet 5 mg PO DAILY 05/24/24 08/20/24 benzonatate 100 mg capsule 100 mg PO BID PRN 08/17/24 08/20/24 methocarbamol 500 mg tablet 500 mg PO TID PRN 08/17/24 08/20/24 Previous Rx's ?Medication ?Instructions ?Recorded fluticasone propionate 50 1 spray intranasal DAILY #16 grams 05/12/23 mcg/actuation nasal spray,suspension (Flonase Allergy Relief) Allergies Allergy/AdvReac Type Severity Reaction Status Date / Time acetaminophen (From Percocet) Allergy Intermediate Nausea Verified 08/20/24 08:14 codeine Allergy Intermediate I-ITCHING Verified 08/20/24 08:14 oxycodone (From Percocet) Allergy Intermediate Nausea Verified 08/20/24 08:14 [facility] Disclaimer: The information contained in this section may have been updated after the patient was seen, as this information can be updated by other users. Medical History JUAN (obstructive sleep apnea) CAD (coronary artery disease) Alcoholism Acute renal failure (ARF) HLD (hyperlipidemia) HTN (hypertension) Diabetes History of diabetes mellitus History of obstructive sleep apnea History of hypertension History of left heart catheterization History of hyperlipidemia Surgical History History of hernia repair History of colonoscopy with polypectomy History of colonoscopy Family History Other Family history of GA (myocardial infarction) Family history of lung cancer Social History Smoking Status: Current every day smoker tobacco type: smokeless tobacco second hand exposure: No (snuff) alcohol intake: former substance use type: denies use current occupational status: retired Travel in the last 8 weeks?: None household members: spouse housing: house current occupational exposures/hazards: No caffeine: Yes Have you lived/traveled outside [place] in past 30 days?: No Contact w/someone who lives/traveled outside [place] past 30 days?: No Exposure to someone with infectious disease in past 14 days?: No Do you have a fever (greater than 100.4 F or 38 C)?: No Have you tested positive for COVID-19?: No Exposed to someone with COVID-19 in past 14 days?: No Do you have a sore throat?: No Do you have a cough?: No Do you have any weakness?: No Do you have any diarrhea?: No Are you experiencing any unusual bleeding?: No Do you have any muscle aches/pain?: No Do you have any abdominal pain?: No Are you experiencing loss of taste or smell?: No Other Medical History Have you received the Flu Vaccine for this season: Yes Have you received the Pneumonia Vaccine: Yes ROS Obtained: Yes All systems reviewed & no additional complaints except as documented Physical Exam General General appearance: alert and in no apparent distress Head Head exam: atraumatic Eye Eye exam: Present EOMI; Absent scleral icterus ENT ENT exam: Present mucous membranes moist; Absent TM's normal bilaterally (Effusion behind left TM without bulging or erythema) Neck Neck exam: Present full ROM Chest Chest inspection: Present normal inspection Respiratory Respiratory exam: Present normal lung sounds bilaterally and other (Frequent coughing); Absent respiratory distress Cardiovascular Cardiovascular exam: Present tachycardia, irregular rhythm and normal heart sounds Abdominal Exam Abdominal exam: Present soft; Absent distention or tenderness exam: Present deferred Extremities Exam Extremities exam: Present full ROM; Absent tenderness or edema Back Exam Back exam: Present full ROM Neurological Exam Neurological exam: Present alert and oriented X3 Psychiatric Psychiatric exam: Present normal mood Skin Skin exam: Present warm and dry Medical Decision Making Medical Records Medical records reviewed: Yes I reviewed the patient's medical records. Screening: Per USPSTF and CDC recommendations, given the prevalence of disease in our region, it is our hospital?s policy to screen for HIV and viral Hepatitis for all patients aged 18 and over and those with ongoing risk factors. Prabhjot Inquiry Pt receiving controlled substance: No Vital Signs: 08/26/24 10:39 08/26/24 10:44 08/26/24 10:55 Temperature 98.8 F Temperature Source Oral Pulse Rate 93 H 190 H Pulse Rate [Right Brachial] 176 H Respiratory Rate 20 23 Blood Pressure 128/83 112/77 Blood Pressure [Right Arm] 125/83 Blood Pressure Mean Blood Pressure Mean [Right Arm] 97 Blood Pressure Source [Right Arm] Automatic Cuff Blood Pressure Position [Right Arm] Sitting 02 Sat by Pulse Oximetry 95 95 95 Oxygen Delivery Method Room Air Room Air Room Air 08/26/24 11:00 08/26/24 11:31 08/26/24 12:00 Temperature Temperature Source Pulse Rate 168 H 137 H 76 Pulse Rate [Right Brachial] Respiratory Rate 32 H 20 18 Blood Pressure 102/79 L 102/66 L 102/63 L Blood Pressure [Right Arm] Blood Pressure Mean 78 76 Blood Pressure Mean [Right Arm] Blood Pressure Source [Right Arm] Blood Pressure Position [Right Arm] 02 Sat by Pulse Oximetry 95 94 L 90 L Oxygen Delivery Method Room Air Lab Data Lab results reviewed: Yes I reviewed the patient's lab results. Lab Results 08/26/24 10:45: WBC 9.3, RBC 5.80, Hgb 16.8, Hct 49.8, MCV 85.9, MCH 29.0, MCHC 33.7, RDW 13.0, Plt Count 336, MPV 10.0, Neut % (Auto) 65.1, Lymph % (Auto) 22.9, [place] % (Auto) 7.8, Eos % (Auto) 1.9, Baso % (Auto) 0.4, Neut # (Auto) 6.1, Lymph # (Auto) 2.1, [place] # (Auto) 0.7, Eos # (Auto) 0.2, Baso # (Auto) 0.0, Sodium 135 L, Potassium 4.0, Chloride 99, Carbon Dioxide 30, Anion Gap 10.0, BUN 24 H, Creatinine 1.00, Estimated Creat Clear 86, Estimated GFR 75, Est GFR ( Amer) 90, Glucose 343 H, Calcium 9.8, Total Bilirubin 0.5, AST 26, ALT 38, Alkaline Phosphatase 119, Troponin I < 0.01, NT-Pro-B Natriuret Pep 129 H, Total Protein 7.7, Albumin 4.2, Globulin 3.5 H, Albumin/Globulin Ratio 1.2, HCV Ab YUDELKA w/Rflx PCR Qn Negative, HIV Ag/Ab Combo Qual Negative 08/26/24 10:52: VBG pH 7.37, VBG pCO2 41.4, VBG pO2 94.4 H, VBG HCO3 23.6, VBG Total CO2 24.9, VBG O2 Saturation 97.0 H, VBG Base Excess -1.6, VBG Lactic Acid 2.3 H 08/26/24 10:45 08/26/24 10:45 Orders (Tests/Meds): ED MEDICATIONS Generic Name Dose Route Start Last Admin Trade Name Freq PRN Reason Stop Dose Admin Ceftriaxone Sodium 2 gm/ 100 mls @ 200 mls/hr 08/26/24 12:30 08/26/24 12:32 Sodium Chloride IV 09/05/24 12:29 200 mls/hr Q24H NASRIN Administration Diltiazem HCl 100 mg/ Sodium 100 mls @ 5 mls/hr 08/26/24 12:45 Chloride IV 09/25/24 12:44 .Q20H NASRIN Protocol 5 MG/HR Discontinued Medications Generic Name Dose Route Start Last Admin Trade Name Freq PRN Reason Stop Dose Admin Acetaminophen 1,000 mg 08/26/24 11:26 08/26/24 11:30 Acetaminophen 500mg Tab PO 08/26/24 11:27 1,000 mg ONCE ONE Administration Sodium Chloride 1,000 mls @ 999 mls/hr 08/26/24 10:54 08/26/24 10:57 Sod Chlor 0.9% 1000ml Bag IV 08/26/24 11:54 999 mls/hr .Q1H1M ONE Administration Doxycycline Hyclate 100 mg/ 250 mls @ 166.667 mls/hr 08/26/24 12:16 Sodium Chloride IV 08/26/24 12:17 ONCE ONE Iopamidol 70 ml 08/26/24 11:52 08/26/24 11:53 Iopamidol-370 (76%);100ml Bottle IV 08/26/24 11:53 70 ml ONCE ONE Administration Metoprolol Tartrate 5 mg 08/26/24 10:52 08/26/24 10:56 Metoprolol Tartrate 5mg/5ml Vial IV 08/26/24 10:53 5 mg ONCE ONE Administration Metoprolol Tartrate 5 mg 08/26/24 11:26 08/26/24 11:29 Metoprolol Tartrate 5mg/5ml Vial IV 08/26/24 11:27 5 mg ONCE ONE Administration Metoprolol Tartrate 5 mg 08/26/24 12:11 08/26/24 12:12 Metoprolol Tartrate 5mg/5ml Vial IV 08/26/24 12:12 5 mg ONCE ONE Administration Sodium Chloride 50 ml 08/26/24 11:52 08/26/24 11:53 0.9 % Sodium Chloride 50 Ml Vial IV 08/26/24 11:53 50 ml ONCE ONE Administration Sodium Chloride 10 ml 08/26/24 11:52 08/26/24 11:53 Sodium Chloride 0.9% 10ml Syr (Rad Only) IV 08/26/24 11:53 10 ml ONCE ONE Administration ORDERS Category Date Time Status CT angio chest PE protocol Stat Cat Scan 08/26/24 10:52 Completed Cardiology Consult [Consult to Cardiology] [CONS] Cons 08/26/24 12:36 Active Routine POCUS Point of Care (ER Only) Stat Exams 08/26/24 10:56 Completed BNP [NT Pro Brain Natriuretic Pep.] Stat Lab 08/26/24 10:45 Completed CBC w/Auto Diff [Complete Blood Count Auto Diff] Stat Lab 08/26/24 10:45 Completed CMP [Comprehensive Metabolic Panel] Stat Lab 08/26/24 10:45 Completed HIV Combo Stat Lab 08/26/24 10:45 Completed Hepatitis C Ab Qual. W/ RFX Stat Lab 08/26/24 10:45 Completed Troponin I Q3H Lab 08/26/24 14:00 Ordered Troponin I Q3H Lab 08/26/24 17:00 Ordered Troponin I Stat Lab 08/26/24 10:45 Completed VBG [Venous Blood Gas] Stat RT 08/26/24 10:52 Completed CA echo doppler complete Stat Y 08/26/24 12:36 Completed Medical Decision Narrative: In summary, this is a 68-year-old male presenting with palpitations. Differential diagnosis includes but is not limited to, A-fib with RVR, pericardial effusion, pleural effusion, pneumonia, PE, ACS, among others. Patient does have a significant cardiac history, however based on his recent URI infection, patient's A-fib is likely secondary to other processes. Patient does not take blood thinners at home. Patient's initial heart rate in the 160s to 190s. Patient is in no acute distress and has an appropriate blood pressure despite this heart rate. Patient will be evaluated with EKG, troponin, BNP, CBC, CMP, VBG, CT PE and POCUS. Patient's EKG demonstrates A-fib with RVR with a rate of 179. Patient has no QTc prolongation. Patient has no evidence of ST elevation or depression. Patient has a pre-existing right bundle branch block. Patient's laboratory evaluation demonstrates no leukocytosis, anemia, thrombocytopenia. VBG with a pH of 7.37. Lactic acid 2.3. Patient given 1 L IV fluid. Patient's mildly hyponatremic at 135 with appropriate renal function and hyperglycemia due to known diabetes and recent steroid use. Initial troponin <0.01. CT PE reviewed by me and negative for pulmonary emboli. He does have multiple regions of opacities in the bibasilar lobes as well as right upper lobe. Patient was treated with 3 doses of 5 mg IV metoprolol without achieving rate control or conversion. At this time, I discussed patient with Dr. Parker who recommended a diltiazem drip. I also discussed the patient with Dr. Urban, for admission due to his multifocal pneumonia and new onset atrial fibrillation. Patient given Rocephin and doxycycline in the emergency department. No anticoagulation was started at this time as it is unclear when patient started having atrial fibrillation. Patient has no shortness of breath or chest pain at this time. Deena White MD Critical Care Critical Care Time Critical Care Time: No
[2024-08-26] MEDS: SODIUM CHLORIDE 0.9% 10ML SYR (RAD ONLY) 10 ML IV (11:53)
[2024-08-26] MEDS: IOPAMIDOL-370 (76%);100ML BOTTLE 70 ML IV (11:53)
[2024-08-26] MEDS: 0.9 % SODIUM CHLORIDE 50 ML VIAL IV (11:53)
[2024-08-26 12:19] LABS: HIV Combo NEGATIVE (Negative)
[2024-08-26 12:26] LABS: Hepatitis C Ab Qual. W/ RFX NEGATIVE (Negative)
[2024-08-26] MEDS: CEFTRIAXONE SODIUM 2 GM in 0.9 % SODIUM CHLORIDE 100 ML IV (12:32)
--- NOTE | 2024-08-26 12:36 | CA_ITS ---
APPROVED REPORT EXAM: Comprehensive 2D, Doppler, and color-flow Echocardiogram Productivity Engineer: EMILY Cuellar, RVS Ht: 5 ft 6 in Wt: 189lbs BSA: 1.95 BP: 128/83 mmHg Indications: AF RVR M-Mode Dimensions RVDd 1.88 cm (0.9-2.6) LA Diam 4.05 cm (1.9-4.0) LVDd 5.30 cm (3.5-5.7) LVDs 3.38 cm (3.5-5.7) IVSd 1.34 cm (0.6-1.1) PWd 1.45 cm (0.6-1.1) EF (Teich) 65.40% FS 36.20% EDV (Teich) 135.30 mL ESV (Teich) 46.80 mL LV Diastology E Decel Time 205 (160-240 msec) E/A Ratio 0.7 Mitral Valve MV E Max Khang. 39.0 (40-130 cm/s) MV A Velocity 57.0 (40-130 cm/s) E/A Ratio 0.69 MV PHT 60.0 ms Left Ventricle The left ventricle is normal size. The left ventricular systolic function is normal. The left ventricular ejection fraction is within the normal range. There is increased overall thickness. There is normal LV segmental wall motion. Transmitral Doppler flow pattern suggests impaired LV relaxation. LVEF is 55%. Right Ventricle Right ventricle is mildly dilated. The right ventricular systolic function is normal. Atria The left atrium size is normal. The right atrium size is normal. There is no Doppler evidence of interatrial shunt. Aortic Valve The aortic valve is mildly thickened. There is no aortic valvular stenosis. No aortic regurgitation is present. Mitral Valve The mitral valve is normal in structure. No evidence of mitral valve stenosis. Trace mitral regurgitation. Tricuspid Valve Tricuspid valve is grossly normal in structure and function. Trace tricuspid regurgitation. There is insufficient TR jet to estimate RVSP. Pulmonic Valve The pulmonary valve is normal in structure. Trace pulmonic regurgitation. Great Vessels The aortic root is normal in size. IVC is normal in size and collapses >50% with inspiration. Pericardium There is no pericardial effusion. Other Information Study Quality: Technically Difficult Conclusion Technically difficult study due to poor acoustic windows. Normal biventricular systolic function. Mild RV dilation. No significant valvular stenosis or regurgitation. Electronically signed by : Rachael Dewitt MD 08/27/2024 14:09:11
[2024-08-26] MEDS: DOXYCYCLINE HYCLATE 100 MG in 0.9 % SODIUM CHLORIDE 250 ML 166.667 MG IV ×2 (12:53→20:09)
[2024-08-26] MEDS: ENOXAPARIN 80MG/0.8ML SYRINGE 80 MG SUBCUT (12:56)
--- NOTE | 2024-08-26 13:02 | ECG_ITS ---
APPROVED REPORT Exam: Resting ECG HR:76 bpm ECG Measurements Heart Rate 76 AXES TN 145 P 34 QRSd 118 QRS -64 QT 375 T 13 QTc 405 Conclusion SINUS RHYTHM WITH FREQUENT VENTRICULAR PREMATURE COMPLEXES LEFT AXIS DEVIATION [QRS AXIS < -30] LOW QRS VOLTAGE IN PRECORDIAL LEADS [QRS DEFLECTION < 1.0 mV IN CHEST LEADS] PATTERN CONSISTENT WITH PULMONARY DISEASE RIGHT BUNDLE BRANCH BLOCK [120+ ms QRS DURATION, UPRIGHT V1, 40+ ms S IN I/aVL/V4/V5/V6] ABNORMAL ECG INTERPRETATION BASED ON A DEFAULT AGE OF 40 YEARS UNCONFIRMED REPORT Electronically signed by : Deena White, 08/26/2024 15:39:14
--- NOTE | 2024-08-26 13:17 | PC.NURSE ---
Report given to KIRAN Fragoso in the ICU
--- NOTE | 2024-08-26 13:34 | PC.NURSE ---
PT ARRIVED TO THE UNIT BY STRETCHER WITH ICU STAFF
--- NOTE | 2024-08-26 13:43 | PC.NURSE ---
Pt arrived to ICU from ED via stretcher at 1332
--- NOTE | 2024-08-26 14:30 | P.HP_ITS ---
<Statement entered by Chuck Urban MD - 08/31/24 22:27> Evaluated by the patient and agree with plan of care as outlined by the FIELD SOFTWARE ENGINEER. History of Present Illness *Admission Date: 08/26/24 *Reason for visit:: Pneumonia, new onset A-fib PFSH PFS Disclaimer: The information contained in this section may have been updated after the patient was seen, as this information can be updated by other users. Medical History (Updated 08/26/24 @ 14:02 by Jovita Dangelo RN) Cataract JUAN (obstructive sleep apnea) CAD (coronary artery disease) Alcoholism Acute renal failure (ARF) HLD (hyperlipidemia) HTN (hypertension) Diabetes History of diabetes mellitus History of obstructive sleep apnea History of hypertension History of left heart catheterization History of hyperlipidemia Surgical History (Updated 08/26/24 @ 14:02 by Jovita Dangelo RN) History of arthroscopy of knee History of hernia repair History of colonoscopy with polypectomy History of colonoscopy Family History Other Family history of [place] (myocardial infarction) Family history of lung cancer Social History (Updated 08/26/24 @ 14:37 by Jovita Dangelo RN) Smoking Status: Former smoker tobacco type: cigarettes packs per day: 3 (Pt states I smoked tobacco from age 14 to 23.) and smokeless tobacco how long ago did patient quit smoking: Age 23 second hand exposure: No (snuff) alcohol intake: former year quit: 2018 counseling provided: none substance use type: denies use current occupational status: retired Travel in the last 8 weeks?: None household members: spouse housing: house current occupational exposures/hazards: No caffeine: Yes Have you lived/traveled outside [place] in past 30 days?: No Contact w/someone who lives/traveled outside [place] past 30 days?: No Exposure to someone with infectious disease in past 14 days?: No Do you have a fever (greater than 100.4 F or 38 C)?: No Have you tested positive for COVID-19?: No Exposed to someone with COVID-19 in past 14 days?: No Do you have a sore throat?: No Do you have a cough?: No Do you have any weakness?: No Do you have any diarrhea?: No Are you experiencing any unusual bleeding?: No Do you have any muscle aches/pain?: No Do you have any abdominal pain?: No Are you experiencing loss of taste or smell?: No Other Medical History Have you received the Flu Vaccine for this season: Yes Have you received the Pneumonia Vaccine: Yes Meds Home Medications and Allergies Home Medications ?Medication ?Instructions ?Recorded ?Confirmed ?Type rosuvastatin 20 mg tablet 20 mg PO HS 03/29/17 5 History sitagliptin phos 100 mg-metformin 1 tab PO DAILY 06/0308/26/24 History ER 1,000 mg tablet,extend rel 24h mp (Janumet XR) glimepiride 2 mg tablet 2 mg PO DAILY 07/25/1908/26 History lisinopril 5 mg tablet 5 mg PO DAILY 07/25/1908/26 History aspirin 81 mg tablet,delayed 81 mg PO DAILY heart heal th 07/27/19 08/26/24 History release nifedipine 30 mg tablet,extended 30 mg PO DAILY 08/26/24 History release 24 hr dapagliflozin propanediol 10 mg 10 mg PO DAILY 1 08/26/24 History tablet levocetirizine 5 mg tablet 5 mg PO DAILY 08/26/2408/08 History New Prescriptions to Start Prescriptions: Allergies Allergy/AdvReac Type Severity Reaction Status Date / Time codeine Allergy Intermediate I-ITCHING Verified 08/20/24 08:14 oxycodone (From Percocet) Allergy Intermediate Nausea Verified 08/20/24 08:14 Exam Data for Last 24 hours Vital signs and Labs for Last 24 Hours: Temp Pulse Resp BP Pulse Ox O2 Del Method 98.8 F 70 18 94/72 L 95 Room Air 08/26/24 10:44 08/26/24 13:45 08/26/24 12:36 08/26/24 12:36 08/26/24 12:36 08/26/24 11:00 Laboratory Results - last 24 hr 08/26/24 10:45: WBC 9.3, RBC 5.80, Hgb 16.8, Hct 49.8, MCV 85.9, MCH 29.0, MCHC 33.7, RDW 13.0, Plt Count 336, MPV 10.0, Neut % (Auto) 65.1, Lymph % (Auto) 22.9, [place] % (Auto) 7.8, Eos % (Auto) 1.9, Baso % (Auto) 0.4, Neut # (Auto) 6.1, Lymph # (Auto) 2.1, [place] # (Auto) 0.7, Eos # (Auto) 0.2, Baso # (Auto) 0.0, Sodium 135 L, Potassium 4.0, Chloride 99, Carbon Dioxide 30, Anion Gap 10.0, BUN 24 H, Creatinine 1.00, Estimated Creat Clear 86, Estimated GFR 75, Est GFR ( Amer) 90, Glucose 343 H, Calcium 9.8, Total Bilirubin 0.5, AST 26, ALT 38, Alkaline Phosphatase 119, Troponin I < 0.01, NT-Pro-B Natriuret Pep 129 H, Total Protein 7.7, Albumin 4.2, Globulin 3.5 H, Albumin/Globulin Ratio 1.2, HCV Ab YUDELKA w/Rflx PCR Qn Negative, HIV Ag/Ab Combo Qual Negative 08/26/24 10:52: VBG pH 7.37, VBG pCO2 41.4, VBG pO2 94.4 H, VBG HCO3 23.6, VBG Total CO2 24.9, VBG O2 Saturation 97.0 H, VBG Base Excess -1.6, VBG Lactic Acid 2.3 H I & O for Last 24 hours: Intake & Output 08/23/24 08/24/24 08/25/24 08/26/24 23:59 23:59 23:59 23:59 Weight 83.461 kg Constitutional Constitutional: no acute distress *Routine HEENT Exam Head: Present normocephalic Eye: Present EOMI and PERRL ENT: Present mucous membranes moist *Routine Neck Exam Neck: Present supple and full ROM *Routine Respiratory Exam Respiratory: Present rhonchi, diminished air movement, able to speak in complete sentences and symmetric chest movement *Routine Cardiovascular Exam Cardiovascular: Present irregular rhythm *Routine Abdominal Exam Abdominal: Present soft and normoactive bowel sounds; Absent tenderness or distended *Routine Rectal Exam Rectal:: deferred *Routine Genitalia Exam Genitalia:: deferred *Routine Extremities Exam Extremities: Present full ROM; Absent cyanosis, clubbing or edema *Routine Skin Exam Skin: Present warm; Absent rash *Routine Neurological Exam Neurological: Present alert, oriented X3 and normal speech Assessment and Plan *Assessment and plan (1) Multifocal pneumonia: Status: Acute Category: Medical Code(s): J18.9 - Pneumonia, unspecified organism (2) A-fib: Status: Acute Qualifiers: Atrial fibrillation type: unspecified Qualified Code(s): I48.91 - Unspecified atrial fibrillation Category: Medical Code(s): I48.91 - Unspecified atrial fibrillation (3) Lower respiratory infection (e.g., bronchitis, pneumonia, pneumonitis, pulmonitis): Status: Acute Category: Medical Code(s): J22 - Unspecified acute lower respiratory infection (4) HLD (hyperlipidemia): Status: Chronic Qualifiers: Hyperlipidemia type: mixed hyperlipidemia Qualified Code(s): E78.2 - Mixed hyperlipidemia Category: Medical Code(s): E78.5 - Hyperlipidemia, unspecified (5) HTN (hypertension): Status: Chronic Qualifiers: Hypertension type: essential hypertension Qualified Code(s): I10 - Essential (primary) hypertension Category: Medical Code(s): I10 - Essential (primary) hypertension (6) Diabetes: Status: Chronic Qualifiers: Diabetes mellitus complication status: without complication Diabetes mellitus fci insulin use: without fci use Diabetes mellitus type: type 2 Qualified Code(s): E11.9 - Type 2 diabetes mellitus without complications Category: Medical Code(s): E11.9 - Type 2 diabetes mellitus without complications (7) Family history of ischemic heart disease: Status: Chronic Category: Medical Code(s): Z82.49 - Family history of ischemic heart disease and other diseases of the circulatory system Plan Mr. Benavidez is a 68-year-old male who presented to the emergency department today after going to his PCPs office for a suspected ear infection, was found to be tachycardic. He states that he has been having respiratory symptoms for 2 to 3 weeks, has been on antibiotics, steroids, decongestant medications, and cough medications. He has not gotten any better so he was returning to his PCPs of [facility]nea today for further evaluation. He does have a primary medical history of CAD, GERD, hypertension, hyperlipidemia, seasonal allergies, prior heart cath with stents, type 2 diabetes. When he presented to the emergency department his heart rate was 178 and found to be in atrial fibrillation. Patient was given 3 doses of metoprolol 5 mg IV for weight rate control. Patient is rate has been controlled and is currently 70. Patient subsequently was also found to have multifocal pneumonia on chest x-ray. Patient's CBC shows no leukocytosis, anemia. Renal function within normal limits, he is hyperglycemic with sugar of 343. Patient was given ceftriaxone 2 g and Doxycycline [address] ED[address] Dr. Urban was consulted for admission and further management of patient's new onset A-fib and pneumonia; after discussion provider agreed to admit. #Multifocal pneumonia ?Patient placed in the stepdown for close monitoring, telemetry, pulse oximetry. Patient currently on room air, O2 saturation 94%. Patient denies significant shortness of breath, does complain of intermittent cough states that he has had copious amounts of sputum production but today it has been dry. ?Patient was treated in the emergency room with Rocephin and doxycycline. Will continue Rocephin 2 g daily and doxycycline 100 mg IV twice daily. Will monitor for toxicity. ?Sputum culture ordered. ?Xopenex 1.25 mg IH 3 times daily. ?Continue fluticasone 50 mcg nasally daily. ##A-fib RVR, new onset ?Patient given metoprolol 5 mg IV x 3 in ED, patient is now rate controlled, heart rate 70s, sinus rhythm with PAC's, RBBB. ?Patient denies any history of having A-fib or any irregular heart rhythms. ?Lovenox therapeutic dosing ordered. ? Echo pending. #Hypertension #Hyperlipidemia #History of left heart cath ?Patient states that he had a heart cath approximately 5 years ago. He states he did not have any intervention at that time. ?Patient takes rosuvastatin 20 mg daily, nifedipine 30 mg daily, lisinopril 5 mg daily, and a 81 mg aspirin. ?Patient denies chest pain, discomfort, weakness. #Diabetes type 2 ?Patient is a type II diabetic states that his A1c was 9.4, but is now 8.0. He states that he has been walking 2 to 3 miles every day for the past 6 weeks. He does state that he checks his sugar at home and normally it is good. Patient's sugar in the ED was 343, he states he did eat a bowl of ice cream this morning. Currently he takes Janumet 100?1000 daily, glyburide 2 mg daily Jardiance 10 mg daily. #GERD ?Restart patient's home medication, omeprazole 20 mg daily as needed Full code Lovenox VTE prophylaxis Ambulate as tolerated Cardiac diet
[2024-08-26 14:34] LABS: Troponin I < 0.01 ng/ml (0.00-0.034)
--- NOTE | 2024-08-26 15:04 | PC.NURSE ---
Cardiology was notified of consult for pt @ [id number]
[2024-08-26 15:10] LABS: Reflex Lactic Add Lactic Reflex
--- NOTE | 2024-08-26 15:13 | PC.NURSE ---
Per Rajni Parker MD is aware of cardiology consult @ [phone]
[2024-08-26] MEDS: humaLOG 100 UNITS/ML 10ML VIAL (SSI) SUBCUT ×2 (16:23→20:08)
[2024-08-26] MEDS: METOPROLOL SUCCINATE XL 25MG TABLET 25 MG PO (16:24)
[2024-08-26 17:14] LABS: Adenovirus,PCR Not Detected (NotDetected); Bordetella Pertussis Not Detected (NotDetected); Chlamydophila Pneumoniae, PCR Not Detected (NotDetected); Coronavirus 19, PCR Not Detected (NotDetected); Coronavirus 229E Not Detected (NotDetected); Coronavirus NL63 Not Detected (NotDetected); Coronavirus OC43 Not Detected (NotDetected); Coronovirus HKU1,PCR Not Detected (NotDetected); Human Metapneumovirus Not Detected (NotDetected); Influenza A, PCR Not Detected (NotDetected); Influenza AH1, 2009 Not Detected (NotDetected); Influenza AH1, PCR Not Detected (NotDetected); Influenza AH3,PCR Not Detected (NotDetected); Influenza B, PCR Not Detected (NotDetected); Mycoplasma Pneumoniae, PCR Not Detected (NotDetected); Parainfluenza 1, PCR Not Detected (NotDetected); Parainfluenza 2, PCR Not Detected (NotDetected); Parainfluenza 3, PCR Not Detected (NotDetected); Parainfluenza 4, PCR Not Detected (NotDetected); Respiratory Syncytial Virus Not Detected (NotDetected); Rhinovirus/Enterovirus Not Detected (NotDetected)
[2024-08-26] MEDS: BENZONATATE 100MG CAPSULE 200 MG PO (17:14)
[2024-08-26 17:28] LABS: Troponin I < 0.01 ng/ml (0.00-0.034)
[2024-08-26 18:29] LABS: POC Glucose,Bedside 190 (70-110)
--- NOTE | 2024-08-26 18:47 | PC.NURSE ---
Patient states per 's office this morning, he has a left ear infection. Primary RN notified Chuck Urban MD. No new orders received. Continuation of care plan.
[2024-08-26] MEDS: LEVALBUTEROL 1.25MG/3ML NEB 1.25 MG IH (18:59)
[2024-08-26 20:08] LABS: POC Glucose,Bedside 332 (70-110)
[2024-08-26] MEDS: ATORVASTATIN 40MG TABLET 40 MG PO (20:08)
[2024-08-26] MEDS: ACETAMINOPHEN 325MG TAB 650 MG PO (20:58)
[2024-08-26] MEDS: ENOXAPARIN 100MG/ML SYRINGE 85 MG SUBCUT (23:27)
[2024-08-27] VITALS (13 sets, daily range): BP systolic 101–141; BP diastolic 74–84; PULSE 67–90; RESP 15–23; TEMP 37.1–37.2; O2SAT 92–99; BMI 29.6
[2024-08-27] MEDS: BENZONATATE 100MG CAPSULE 200 MG PO (01:39)
[2024-08-27] MEDS: humaLOG 100 UNITS/ML 10ML VIAL (SSI) SUBCUT ×2 (05:54→12:13)
[2024-08-27 05:58] LABS: POC Glucose,Bedside 199 (70-110)
--- NOTE | 2024-08-27 06:16 | PC.NURSE ---
Patient is awake, alert and oriented. Is able to verbalize needs on his own. Educated on plan of care, safety and medications. Has no complaints of pain or s/s of distress. 1 liter nasal cannula placed on patient overnight while he was sleeping. Patient is able to reposition self independently and get to side of bed on his own. Remained in sinus rhythm overnight. PRN tylenol given overnight for a headache and was effective. Tessalon pearls given for cough and was effective. Call chambers in place.
[2024-08-27] MEDS: LEVALBUTEROL 1.25MG/3ML NEB 1.25 MG IH ×2 (06:33→13:46)
[2024-08-27 06:35] LABS: Basophils % 0.5 % (0.1-2.0); Eosinophils # 0.2 Kmm3 (0.0-0.4); Eosinophils % 2.4 % (0.1-12.0); Hemoglobin 15.7 g/dL (14.1-18.0); Immature Granulocytes # 0.17 10^3uL; Immature Granulocytes % 2.1 %; Lymphocytes % 24.9 % (10-50); Mean Corpuscular HGB Conc 32.7 g/dL (31.8-35.4); Mean Corpuscular Hemoglobin 28.5 pg (27.0-31.2); Mean Corpuscular Volume 87.3 fl (80-94); Mean Platelet Volume 9.9 fl (7.4-10.4); Monocytes # 0.6 K/mm3 (0.1-1.0); Monocytes % 7.1 % (1.7-9.3); Nucleated Red Blood Cells # 0 10^3/uL; Nucleated Red Blood Cells % 0 %; Platelet Count 314 K/mm3 (142-424); Red Cell Distribution Width-SD 41.1 fL; White Blood Count 7.9 K/mm3 (4.8-10.8)
[2024-08-27 06:38] LABS: Albumin Level 3.8 g/dl (3.5-5.0); Chloride 103 mmol/L (98-107); Sodium 136 mmol/L (136-145)
[2024-08-27 06:39] LABS: Potassium 4.6 mmoL/L (3.5-5.1)
[2024-08-27 06:41] LABS: Alanine Aminotransferase 29 U/L (12-78); Albumin/Globulin Ratio 1.2 (1.1-1.8); Alkaline Phosphatase 109 U/L (38-126); Anion Gap 8.6 mEq/L (5-15); Aspartate Amino Transferase 24 U/L (17-59); Bilirubin,Total 0.5 mg/dl (0.2-1.3); Blood Urea Nitrogen 16 mg/dl (9-20); Carbon Dioxide 29 mmol/L (22.0-30.0); Creatinine Clearance Estimated 86 mL/min (50-200); Estimated Glomerular Filt Rate 84 ml/min (>60); GFR (African American) 102 ML/MIN (>60); Globulin 3.3 g/dL (1.3-3.2); Total Protein,Serum 7.1 g/dl (6.3-8.2)
[2024-08-27 06:42] LABS: Calcium 8.7 mg/dl (8.4-10.2); Chol/HDL Ratio 6.1 (1-3.5); Cholesterol 135 mg/dl (140-200); Glucose 205 mg/dl (74-100); HDL Cholesterol 22 mg/dl (40-60); Triglycerides 307 mg/dl (30-150); VLDL Cholesterol 61 mg/dL (0-40)
[2024-08-27 06:53] LABS: Direct LDL Cholesterol 55.63 mg/dL (100-129)
[2024-08-27] MEDS: DOXYCYCLINE HYCLATE 100 MG in 0.9 % SODIUM CHLORIDE 250 ML 166.667 MG IV (08:02)
[2024-08-27] MEDS: METOPROLOL SUCCINATE XL 25MG TABLET 25 MG PO (08:02)
[2024-08-27] MEDS: ASPIRIN EC 81MG TABLET 81 MG PO (08:03)
[2024-08-27] MEDS: DAPAGLIFLOZIN PROPANEDIOL 10 MG TABLET PO (08:03)
[2024-08-27] MEDS: ENOXAPARIN 100MG/ML SYRINGE 85 MG SUBCUT (08:03)
[2024-08-27] MEDS: ACETAMINOPHEN 325MG TAB 650 MG PO (08:11)
[2024-08-27 11:24] LABS: POC Glucose,Bedside 228 (70-110)
--- NOTE | 2024-08-27 13:08 | EXP.DC.SUM ---
General Admission date:: 08/26/24 Hospital Course Hospital Course Hospital Course: Mr. Benavidez is a 68-year-old male who presented to the emergency department today after going to his PCPs office for a suspected ear infection, was found to be tachycardic. He states that he has been having respiratory symptoms for 2 to 3 weeks, has been on antibiotics, steroids, decongestant medications, and cough medications. He has not gotten any better so he was returning to his PCPs office today for further evaluation. He does have a primary medical history of CAD, GERD, hypertension, hyperlipidemia, seasonal allergies, prior heart cath with stents, type 2 diabetes. When he presented to the emergency department his heart rate was 178 and found to be in atrial fibrillation. Patient was given 3 doses of metoprolol 5 mg IV for weight rate control. Patient is rate has been controlled and is currently 70. Patient subsequently was also found to have multifocal pneumonia on chest x-ray. Patient's CBC shows no leukocytosis, anemia. Renal function within normal limits, he is hyperglycemic with sugar of 343. Patient was given ceftriaxone 2 g and Doxycycline [address] ED[address] Dr. Urban was consulted for admission and further management of patient's new onset A-fib and pneumonia; after discussion provider agreed to admit. #Community-acquired pneumonia #Left otitis media ? Presented from PCPs office for productive cough, left otitis media, and new A-fib RVR. CTA chest showed bilateral lower lobe pneumonia. On room air, WBC normal. ? Clinically improved with ceftriaxone, doxycycline. Patient feels much better. Transitioned to Augmentin for 9 more days. ? Will follow-up with PCP within 1 week. #A-fib RVR, new onset ? Initial HR in the 170s in the setting of pneumonia. NSR after IV Lopressor 5 mg x 3 in the ED. ? Patient remained stable and rate controlled throughout hospital course. [id number] > 2. ? Discussed with Dr. Parker, discharged with metoprolol succinate 50 mg twice daily and Xarelto 20 mg. Also placed 2-week event monitor. ? Advised to follow-up with cardiology on Thursday. #Hypertension #Hyperlipidemia #History of left heart cath ? Patient states that he had a heart cath approximately 5 years ago. He states he did not have any intervention at that time. ? Continue rosuvastatin 20 mg daily, nifedipine 30 mg daily, lisinopril 5 mg daily, and a 81 mg aspirin. #Diabetes type 2 ? Patient is a type II diabetic states that his A1c was 9.4, but is now 8.0. He states that he has been walking 2 to 3 miles every day for the past 6 weeks. ? Continue home Janumet 100?1000 daily, glyburide 2 mg daily Jardiance 10 mg daily. #GERD ? Continue home PPI. Total time spent on discharge: 35 minutes on chart review, counseling, documentation, and direct care with patient. Exam Data for Last 24 hours Vital signs and Labs for Last 24 Hours: Temp Pulse Resp BP Pulse Ox O2 Del Method O2 Flow Rate 98.7 F 75 15 119/74 95 Room Air 1 08/27/24 12:00 08/27/24 12:00 08/27/24 12:00 08/27/24 12:00 08/27/24 12:00 08/27/24 12:00 08/27/24 08:00 Laboratory Results - last 24 hr 08/26/24 14:05: Troponin I < 0.01 08/26/24 15:20: Lactate 1.0 08/26/24 16:18: POC Glucose 190 H 08/26/24 16:56: Troponin I < 0.01 08/26/24 17:08: Chlamy pneumoniae PCR Not detected, Adenovirus (PCR) Not detected, B. pertussis DNA (PCR) Not detected, Coronavirus OC43 (PCR) Not detected, Coronavirus HKU1 (PCR) Not detected, Coronavirus 229E (PCR) Not detected, SARS-CoV-2 (PCR) Not detected, Coronavirus NL63 (PCR) Not detected, Human Metapneumovir PCR Not detected, Influenza A (H1) PCR Not detected, Influ A (H1N1/09) PCR Not detected, Influenza A (H3) PCR Not detected, Influenza Type A (PCR) Not detected, Influenza Type B (PCR) Not detected, M. pneumoniae (PCR) Not detected, Parainfluenza 1 (PCR) Not detected, Parainfluenza 2 (PCR) Not detected, Parainfluenza 3 (PCR) Not detected, Parainfluenza 4 (PCR) Not detected, RSV (PCR) Not detected, Entero/Rhino (PCR) Not detected 08/26/24 19:24: POC Glucose 332 H* 08/27/24 05:48: POC Glucose 199 H 08/27/24 06:08: WBC 7.9, RBC 5.50, Hgb 15.7, Hct 48.0, MCV 87.3, MCH 28.5, MCHC 32.7, RDW 13.0, Plt Count 314, MPV 9.9, Neut % (Auto) 63.0, Lymph % (Auto) 24.9, [place] % (Auto) 7.1, Eos % (Auto) 2.4, Baso % (Auto) 0.5, Neut # (Auto) 5.0, Lymph # (Auto) 2.0, [place] # (Auto) 0.6, Eos # (Auto) 0.2, Baso # (Auto) 0.0, Sodium 136, Potassium 4.6, Chloride 103, Carbon Dioxide 29, Anion Gap 8.6, BUN 16 D, Creatinine 0.90, Estimated Creat Clear 86, Estimated GFR 84, Est GFR ( Amer) 102, Glucose 205 H D, Calcium 8.7, Magnesium 2.0, Total Bilirubin 0.5, AST 24, ALT 29, Alkaline Phosphatase 109, Total Protein 7.1, Albumin 3.8, Globulin 3.3 H, Albumin/Globulin Ratio 1.2, Triglycerides 307 H, Cholesterol 135 L, LDL Cholesterol Direct 55.63 L, VLDL Cholesterol 61 H, HDL Cholesterol 22 L, Cholesterol/HDL Ratio 6.1 H 08/27/24 11:13: POC Glucose 228 H I & O for Last 24 hours: Intake & Output 08/24/24 08/25/24 08/26/24 08/27/24 23:59 23:59 23:59 23:59 Intake Total 750 / 1000 740 / 740 Output Total 1600 / 1600 750 / 750 Balance -850 / -600 -10 / -10 Weight 83.597 kg 83.552 kg Microbiology Reports for the Last 24 Hours: Microbiology 08/26/24 15:04 Sputum - Expectorated Sputum Gram Stain - Final Constitutional Constitutional: no acute distress *Routine HEENT Exam Head: Present normocephalic Eye: Present EOMI and PERRL ENT: Present mucous membranes moist *Routine Neck Exam Neck: Present supple; Absent lymphadenopathy *Routine Respiratory Exam Respiratory: Present CTA bilaterally *Routine Cardiovascular Exam Cardiovascular: Present RRR *Routine Abdominal Exam Abdominal: Present soft and normoactive bowel sounds; Absent tenderness *Routine Extremities Exam Extremities: Absent cyanosis, clubbing or edema *Routine Skin Exam Skin: Present warm; Absent rash *Routine Neurological Exam Neurological: Present alert and oriented X3 Results Data Completed and Pending Labs on day of discharge: Labs from last 24 hours 08/27/24 08/27/24 08/27/24 11:13 06:08 05:48 WBC 7.9 RBC 5.50 Hgb 15.7 Hct 48.0 MCV 87.3 MCH 28.5 MCHC 32.7 RDW 13.0 Plt Count 314 MPV 9.9 Neut % (Auto) 63.0 Lymph % (Auto) 24.9 [place] % (Auto) 7.1 Eos % (Auto) 2.4 Baso % (Auto) 0.5 Neut # (Auto) 5.0 Lymph # (Auto) 2.0 [place] # (Auto) 0.6 Eos # (Auto) 0.2 Baso # (Auto) 0.0 Sodium 136 Potassium 4.6 Chloride 103 Carbon Dioxide 29 Anion Gap 8.6 BUN 16 D Creatinine 0.90 Estimated Creat Clear 86 Estimated GFR 84 Est GFR ( Amer) 102 Glucose 205 H D POC Glucose 228 H 199 H Lactate Calcium 8.7 Magnesium 2.0 Total Bilirubin 0.5 AST 24 ALT 29 Alkaline Phosphatase 109 Troponin I Total Protein 7.1 Albumin 3.8 Globulin 3.3 H Albumin/Globulin Ratio 1.2 Triglycerides 307 H Cholesterol 135 L LDL Cholesterol Direct 55.63 L VLDL Cholesterol 61 H HDL Cholesterol 22 L Cholesterol/HDL Ratio 6.1 H Chlamy pneumoniae PCR Adenovirus (PCR) B. pertussis DNA (PCR) Coronavirus OC43 (PCR) Coronavirus HKU1 (PCR) Coronavirus 229E (PCR) SARS-CoV-2 (PCR) Coronavirus NL63 (PCR) Human Metapneumovir PCR Influenza A (H1) PCR Influ A (H1N1/09) PCR Influenza A (H3) PCR Influenza Type A (PCR) Influenza Type B (PCR) M. pneumoniae (PCR) Parainfluenza 1 (PCR) Parainfluenza 2 (PCR) Parainfluenza 3 (PCR) Parainfluenza 4 (PCR) RSV (PCR) Entero/Rhino (PCR) 06/20/25 06/20/25 06/20/25 19:24 17:08 16:56 WBC RBC Hgb Hct MCV MCH MCHC RDW Plt Count MPV Neut % (Auto) Lymph % (Auto) [place] % (Auto) Eos % (Auto) Baso % (Auto) Neut # (Auto) Lymph # (Auto) [place] # (Auto) Eos # (Auto) Baso # (Auto) Sodium Potassium Chloride Carbon Dioxide Anion Gap BUN Creatinine Estimated Creat Clear Estimated GFR Est GFR ( Amer) Glucose POC Glucose 332 H* Lactate Calcium Magnesium Total Bilirubin AST ALT Alkaline Phosphatase Troponin I < 0.01 Total Protein Albumin Globulin Albumin/Globulin Ratio Triglycerides Cholesterol LDL Cholesterol Direct VLDL Cholesterol HDL Cholesterol Cholesterol/HDL Ratio Chlamy pneumoniae PCR Not detected Adenovirus (PCR) Not detected B. pertussis DNA (PCR) Not detected Coronavirus OC43 (PCR) Not detected Coronavirus HKU1 (PCR) Not detected Coronavirus 229E (PCR) Not detected SARS-CoV-2 (PCR) Not detected Coronavirus NL63 (PCR) Not detected Human Metapneumovir PCR Not detected Influenza A (H1) PCR Not detected Influ A (H1N1/09) PCR Not detected Influenza A (H3) PCR Not detected Influenza Type A (PCR) Not detected Influenza Type B (PCR) Not detected M. pneumoniae (PCR) Not detected Parainfluenza 1 (PCR) Not detected Parainfluenza 2 (PCR) Not detected Parainfluenza 3 (PCR) Not detected Parainfluenza 4 (PCR) Not detected RSV (PCR) Not detected Entero/Rhino (PCR) Not detected 08/26/24 08/26/24 08/26/24 16:18 15:20 14:05 WBC RBC Hgb Hct MCV MCH MCHC RDW Plt Count MPV Neut % (Auto) Lymph % (Auto) [place] % (Auto) Eos % (Auto) Baso % (Auto) Neut # (Auto) Lymph # (Auto) [place] # (Auto) Eos # (Auto) Baso # (Auto) Sodium Potassium Chloride Carbon Dioxide Anion Gap BUN Creatinine Estimated Creat Clear Estimated GFR Est GFR ( Amer) Glucose POC Glucose 190 H Lactate 1.0 Calcium Magnesium Total Bilirubin AST ALT Alkaline Phosphatase Troponin I < 0.01 Total Protein Albumin Globulin Albumin/Globulin Ratio Triglycerides Cholesterol LDL Cholesterol Direct VLDL Cholesterol HDL Cholesterol Cholesterol/HDL Ratio Chlamy pneumoniae PCR Adenovirus (PCR) B. pertussis DNA (PCR) Coronavirus OC43 (PCR) Coronavirus HKU1 (PCR) Coronavirus 229E (PCR) SARS-CoV-2 (PCR) Coronavirus NL63 (PCR) Human Metapneumovir PCR Influenza A (H1) PCR Influ A (H1N1/09) PCR Influenza A (H3) PCR Influenza Type A (PCR) Influenza Type B (PCR) M. pneumoniae (PCR) Parainfluenza 1 (PCR) Parainfluenza 2 (PCR) Parainfluenza 3 (PCR) Parainfluenza 4 (PCR) RSV (PCR) Entero/Rhino (PCR) DS: Diagnosis Discharge Diagnosis (1) Multifocal pneumonia: Status: Acute Code(s): J18.9 - Pneumonia, unspecified organism (2) A-fib: Status: Acute Code(s): I48.91 - Unspecified atrial fibrillation Qualifiers: Atrial fibrillation type: unspecified Qualified Code(s): I48.91 - Unspecified atrial fibrillation (3) Lower respiratory infection (e.g., bronchitis, pneumonia, pneumonitis, pulmonitis): Status: Acute Code(s): J22 - Unspecified acute lower respiratory infection (4) HLD (hyperlipidemia): Status: Chronic Code(s): E78.5 - Hyperlipidemia, unspecified Qualifiers: Hyperlipidemia type: mixed hyperlipidemia Qualified Code(s): E78.2 - Mixed hyperlipidemia (5) HTN (hypertension): Status: Chronic Code(s): I10 - Essential (primary) hypertension Qualifiers: Hypertension type: essential hypertension Qualified Code(s): I10 - Essential (primary) hypertension (6) Diabetes: Status: Chronic Code(s): E11.9 - Type 2 diabetes mellitus without complications Qualifiers: Diabetes mellitus complication status: without complication Diabetes mellitus chcf insulin use: without terminal gauger supervisor use Diabetes mellitus type: type 2 Qualified Code(s): E11.9 - Type 2 diabetes mellitus without complications (7) Family history of ischemic heart disease: Status: Chronic Code(s): Z82.49 - Family history of ischemic heart disease and other diseases of the circulatory system Meds Home Medications and Allergies Home Medications ?Medication ?Instructions ?Recorded ?Confirmed ?Type rosuvastatin 20 mg tablet 20 mg PO HS 03/29/17 08/26/24 History sitagliptin phos 100 mg-metformin 1 tab PO DAILY 06/03/18 08/26/24 History ER 1,000 mg tablet,extend rel 24h mp (Janumet XR) glimepiride 2 mg tablet 2 mg PO DAILY 07/25/19 08/26/24 History lisinopril 5 mg tablet 5 mg PO DAILY 07/25/19 08/26/24 History aspirin 81 mg tablet,delayed 81 mg PO DAILY heart health 07/27/19 08/26/24 History release nifedipine 30 mg tablet,extended 30 mg PO DAILY 09/16/19 08/26/24 History release 24 hr dapagliflozin propanediol 10 mg 10 mg PO DAILY 03/16/20 08/26/24 History tablet levocetirizine 5 mg tablet 5 mg PO DAILY 08/26/24 08/26/24 History albuterol sulfate 90 mcg/actuation 2 puff inhalation Q4HP PRN SOA 08/27/24 08/27/24 History aerosol inhaler amoxicillin 500 mg-potassium 1 tab PO TID 9 days #27 tabs 08/27/24 Rx clavulanate 125 mg tablet (Augmentin) metoprolol succinate 50 mg 50 mg PO BID 30 days #60 tabs 08/27/24 Rx tablet,extended release 24 hr rivaroxaban 20 mg tablet (Xarelto) 20 mg PO HS 30 days #30 tabs 08/27/24 Rx New Prescriptions to Start Prescriptions: delfina-pot clavulanate [Augmentin] Chuck Urban metoprolol succinate Chuck Urban rivaroxaban [Xarelto] Chuck Urban Allergies Allergy/AdvReac Type Severity Reaction Status Date / Time codeine Allergy Intermediate I-ITCHING Verified 08/20/24 08:14 oxycodone (From Percocet) Allergy Intermediate Nausea Verified 08/20/24 08:14 Discharge Plan Disposition Patient Disposition: Home, Self-Care Condition: Fair Discharge Order Discharge Orders: Discharge Order (Routine); Ordered 08/27/24 Ordered By: Chuck Urban Follow up Plan Follow up with: Mariangel Sanon APRN [Nurse Practitioner, Cardiology] - 2 days Referral Note: call for appointment Prescriptions/Medication Reconciliation: New amoxicillin-pot clavulanate [Augmentin] 500-125 mg tablet 1 tab PO TID 9 Days Qty: 27 0RF metoprolol succinate 50 mg tablet extended release 24 hr 50 mg PO BID 30 Days Qty: 60 0RF Xarelto 20 mg tablet 20 mg PO HS 30 Days Qty: 30 0RF Continued Janumet XR 100-1,000 mg tablet, ER multiphase 24 hr 1 tab PO DAILY lisinopril 5 mg tablet 5 mg PO DAILY glimepiride 2 mg tablet 2 mg PO DAILY nifedipine 30 mg tablet extended release 24hr 30 mg PO DAILY dapagliflozin propanediol 10 mg tablet 10 mg PO DAILY aspirin 81 MG tablet,delayed release (DR/EC) 81 mg PO DAILY levocetirizine 5 mg tablet 5 mg PO DAILY albuterol sulfate 90 mcg/actuation HFA aerosol inhaler 2 puff INHALATION Q4HP PRN (Reason: SOA) rosuvastatin 20 MG tablet 20 mg PO HS Patient Comments: TK 1 T PO QD HS Problem Reconciliation Problems Reviewed?: Yes Patient Discharge Instructions Patient Instructions: Atrial Fibrillation, DI for Atrial Fibrillation, Stop Light Pneumonia Print Language: Turkmen Providers Primary Care Provider: Sacha Dickson Admit Provider: Chuck Urban Attending Provider: Chuck Urban
== END 2024-08-27 15:02 | disposition home or self-care (01) ==
LOC: ER 12:47 → ICU 13:24
PROVIDERS: Admitting Provider Student in an Organized Health Care Education/Training Program; Emergency Provider Student in an Organized Health Care Education/Training Program; PCP Internal Medicine Adolescent Medicine; Visit Provider Student in an Organized Health Care Education/Training Program
DX: I48.91 Unspecified atrial fibrillation (principal); J18.9 Pneumonia, unspecified organism; I11.9 Hypertensive heart disease without heart failure; E11.65 Type 2 diabetes mellitus with hyperglycemia; K21.9 Gastro-esophageal reflux disease without esophagitis; H66.92 Otitis media, unspecified, left ear; I45.10 Unspecified right bundle-branch block; I49.3 Ventricular premature depolarization; F10.21 Alcohol dependence, in remission; I25.10 Atherosclerotic heart disease of native coronary artery without angina pectoris; E87.1 Hypo-osmolality and hyponatremia; E78.2 Mixed hyperlipidemia; Z82.49 Family history of ischemic heart disease and other diseases of the circulatory system; Z79.84 Long term (current) use of oral hypoglycemic drugs; Z79.899 Other long term (current) drug therapy; Z87.891 Personal history of nicotine dependence; Z79.82 Long term (current) use of aspirin; Z88.5 Allergy status to narcotic agent; Z87.09 Personal history of other diseases of the respiratory system; Z95.5 Presence of coronary angioplasty implant and graft
CPT/HCPCS: 0223U; 36415; 71275; 80053; 80061; 82803; 82962; 83605; 83735; 83880; 84484; 85025; 86803; 87070; 87077; 87186; 87205; 87389; 87633; 93005; 93270; 93306; 94640; 96361; 96374; 96375; 96376; 99285; G0378; J0696; J1650; J7030; J7050; J7614; Q9967

== ENCOUNTER 2024-08-29 14:27 | Outpatient (CLI) | payer MEDICARE, SELFPAY ==
--- OUTSIDE RECORDS SUMMARY | 2024-08-29 14:30 | XMS_ITS | Clinical Summary ---
Author Organization [facility] Address [address] [place] [address] Care Team Providers Care Traffic Survey Technician Name Role Phone Sacha Dickson MD Primary Care Provider [phone] Allergies Active Allergy Reactions Criticality Noted Date [...] Vaccine s (1 - Tdap) 02/03/2019 02/02/2019 [id number] Vaccine (3 - season) 2023 04/17/2020, 03/16/2020 [...] ORDERABLES Susan l Result Performing Organization Address [facility] de Phone Number SUNQUEST * [...] <6.0% Children and Adolescents <7.5% . Source: [place] [employer]. Standards of medical care in diabetes, 2017. Diabetes Care.2017:40 (suppl 1):S1-S135. . HbA1c assay performed by an ion-exchange chromatography method that is certified traceable to the DCCT. 04/06/2017 2:14 AM EST 04/06/2017 2:33 AM EST Historical Provider LAB BLOOD ORDERABLES Susan l Result Performing Organization Address [facility] Co de Phone Number SUNQUEST from Last 3 Months or Most Recently Relevant to Health Maintenance [place] [address] Care Teams Traffic Survey Technician Relationship Specialty Start Date End Date Sacha Dickson MD [address] [place] [address] PCP - General 07/20/20
[2024-08-29 15:13] LABS: Basophils % 0.3 % (0.1-2.0); Eosinophils # 0.2 Kmm3 (0.0-0.4); Eosinophils % 2.9 % (0.1-12.0); Hematocrit 46.2 % (42.0-52.0); Hemoglobin 15.1 g/dL (14.1-18.0); Immature Granulocytes # 0.12 10^3uL; Immature Granulocytes % 1.7 %; Lymphocytes # 1.6 K/mm3 (0.7-4.5); Lymphocytes % 22.4 % (10-50); Mean Corpuscular HGB Conc 32.7 g/dL (31.8-35.4); Mean Corpuscular Hemoglobin 28.2 pg (27.0-31.2); Mean Corpuscular Volume 86.4 fl (80-94); Monocytes # 0.5 K/mm3 (0.1-1.0); Monocytes % 6.9 % (1.7-9.3); Neutrophils # 4.8 K/mm3 (1.8-7.8); Neutrophils % 65.8 % (37.0-80.0); Nucleated Red Blood Cells # 0 10^3/uL; Nucleated Red Blood Cells % 0 %; Platelet Count 357 K/mm3 (142-424); Red Blood Count 5.35 M/mm3 (4.60-6.20); Red Cell Distribution Width 12.9 % (11.5-17.5); Red Cell Distribution Width-SD 40.6 fL; White Blood Count 7.2 K/mm3 (4.8-10.8)
[2024-08-29 15:34] LABS: Anion Gap 10.2 mEq/L (5-15); Blood Urea Nitrogen 17 mg/dl (9-20); Calcium 9.8 mg/dl (8.4-10.2); Carbon Dioxide 29 mmol/L (22.0-30.0); Chloride 100 mmol/L (98-107); Estimated Glomerular Filt Rate 84 ml/min (>60); GFR (African American) 102 ML/MIN (>60); Glucose 291 mg/dl (74-100); Potassium 5.2 mmoL/L (3.5-5.1); Sodium 134 mmol/L (136-145)
== END 2024-08-29 23:59 | disposition home or self-care (01) ==
LOC: LAB 14:27
PROVIDERS: PCP Internal Medicine Adolescent Medicine; Visit Provider Nurse Practitioner
DX: I25.10 Atherosclerotic heart disease of native coronary artery without angina pectoris (principal); I10 Essential (primary) hypertension
CPT/HCPCS: 36415; 80048; 85025

== ENCOUNTER 2024-09-22 09:08 | Outpatient (CLI) | payer MEDICARE, SELFPAY ==
--- OUTSIDE RECORDS SUMMARY | 2024-09-22 09:11 | XMS_ITS | Clinical Summary ---
Author Organization [facility] Address [address] [place] [address] Care Team Providers Care Animal Shelter Worker Name Role Phone Sacha Dickson MD Primary Care Provider [phone] Allergies Active Allergy Reactions Criticality Noted Date [...] Vaccine s (1 - Tdap) 02/03/2019 02/02/2019 [id number] Vaccine (3 - season) 2023 04/17/2020, 03/16/2020 [facility]-Influenza Vaccine (#1) 11/07/202412/07, 12/25/2017 [facility]-Hepatitis C Screening Completed 04/06/2017 HPV [...] ORDERABLES Susan l Result Performing Organization Address [facility] Co de Phone Number SUNQUEST * (ABNORMAL) Hemoglobin [...] <6.0% Children and Adolescents <7.5% . Source: [place] [employer]. Standards of medical care in diabetes, 2017. Diabetes Care.2017:40 (suppl 1):S1-S135. . HbA1c assay performed by an ion-exchange chromatography method that is certified traceable to the DCCT. 04/06/2017 2:14 AM EST 04/06/2017 2:33 AM EST Historical Provider LAB BLOOD ORDERABLES Susan l Result Performing Organization Address [facility] Co de Phone Number SUNQUEST from Last 3 Months or Most Recently Relevant to Health Maintenance [place] [address] Care Teams Animal Shelter Worker Relationship Specialty Start Date End Date Sacha Dickson MD [address] [place] [address] PCP - General 07/20/20
[2024-09-22 09:44] LABS: Hematocrit 47.0 % (42.0-52.0); Hemoglobin 15.8 g/dL (14.1-18.0); Immature Granulocytes % 0.3 %; Mean Corpuscular HGB Conc 33.6 g/dL (31.8-35.4); Mean Corpuscular Hemoglobin 29.2 pg (27.0-31.2); Mean Corpuscular Volume 86.7 fl (80-94); Nucleated Red Blood Cells % 0 %; Platelet Count 142 K/mm3 (142-424); Red Blood Count 5.42 M/mm3 (4.60-6.20); Red Cell Distribution Width-SD 42.4 fL; White Blood Count 6.7 K/mm3 (4.8-10.8)
[2024-09-22 10:08] LABS: Anion Gap 18.9 mEq/L (5-15); Blood Urea Nitrogen 18 mg/dl (9-20); Calcium 9.7 mg/dl (8.4-10.2); Carbon Dioxide 27 mmol/L (22.0-30.0); Chloride 97 mmol/L (98-107); Creatinine,Serum 1.00 mg/dl (0.66-1.25); Estimated Glomerular Filt Rate 75 ml/min (>60); GFR (African American) 90 ML/MIN (>60); Glucose 282 mg/dl (74-100); Potassium 4.9 mmoL/L (3.5-5.1); Sodium 138 mmol/L (136-145)
== END 2024-09-22 23:59 | disposition home or self-care (01) ==
PROVIDERS: PCP Internal Medicine Adolescent Medicine; Visit Provider Nurse Practitioner Family
DX: I25.10 Atherosclerotic heart disease of native coronary artery without angina pectoris (principal); I10 Essential (primary) hypertension
CPT/HCPCS: 36415; 80048; 85025

== ENCOUNTER 2024-12-23 08:02 | Outpatient (CLI) | payer MEDICARE, SELFPAY ==
[2024-12-23 08:24] LABS: Hematocrit 52.9 % (42.0-52.0); Hemoglobin 17.5 g/dL (14.1-18.0); Immature Granulocytes % 0.3 %; Mean Corpuscular HGB Conc 33.1 g/dL (31.8-35.4); Mean Corpuscular Hemoglobin 28.5 pg (27.0-31.2); Mean Corpuscular Volume 86.3 fl (80-94); Nucleated Red Blood Cells % 0 %; Platelet Count 157 K/mm3 (142-424); Red Blood Count 6.13 M/mm3 (4.60-6.20); Red Cell Distribution Width-SD 39.1 fL; White Blood Count 7.4 K/mm3 (4.8-10.8)
[2024-12-23 09:22] LABS: Albumin Level 4.4 g/dl (3.5-5.0); Chloride 98 mmol/L (98-107)
[2024-12-23 09:23] LABS: Potassium 4.3 mmoL/L (3.5-5.1); Sodium 137 mmol/L (136-145)
[2024-12-23 09:25] LABS: Alanine Aminotransferase 32 U/L (12-78); Albumin/Globulin Ratio 1.6 (1.1-1.8); Alkaline Phosphatase 98 U/L (38-126); Anion Gap 15.3 mEq/L (5-15); Aspartate Amino Transferase 28 U/L (17-59); Bilirubin,Total 1.0 mg/dl (0.2-1.3); Blood Urea Nitrogen 17 mg/dl (9-20); Carbon Dioxide 28 mmol/L (22.0-30.0); Cholesterol 173 mg/dl (140-200); Creatinine,Serum 0.90 mg/dl (0.66-1.25); Estimated Glomerular Filt Rate 84 ml/min (>60); GFR (African American) 102 ML/MIN (>60); Globulin 2.8 g/dL (1.3-3.2); Total Protein,Serum 7.2 g/dl (6.3-8.2); Triglycerides 301 mg/dl (30-150)
[2024-12-23 09:26] LABS: Calcium 9.0 mg/dl (8.4-10.2); Glucose 237 mg/dl (74-100); HDL Cholesterol 35 mg/dl (40-60); Magnesium 1.7 mg/dl (1.6-2.3); Phosphorous 4.1 mg/dl (2.5-4.5)
[2024-12-23 09:41] LABS: Triiodothryronine (T3) Uptake 33 % (23.5-40.5)
[2024-12-23 09:42] LABS: Free Thyroxine Index 2.7 ug/dL (5.93-13.13); T4 (Thyroxine) 8.3 ug/dl (5.53-11.0)
[2024-12-23 09:53] LABS: Hemoglobin A1C 12.3 % (4.0-6.0)
[2024-12-23 09:55] LABS: Thyroid Stimulating Hormone 3.26 uIU/mL (0.465-4.68)
== END 2024-12-23 23:59 | disposition home or self-care (01) ==
LOC: LAB 08:03
PROVIDERS: PCP Internal Medicine Adolescent Medicine; Visit Provider Internal Medicine Adolescent Medicine
DX: I48.91 Unspecified atrial fibrillation (principal); E11.59 Type 2 diabetes mellitus with other circulatory complications
CPT/HCPCS: 36415; 80053; 80061; 83036; 83735; 84100; 84436; 84443; 84479; 85025

== ENCOUNTER 2025-02-24 07:58 | Outpatient (CLI) | payer MEDICARE, SELFPAY ==
--- OUTSIDE RECORDS SUMMARY | 2025-02-24 08:01 | XMS_ITS | Clinical Summary ---
Author Organization [facility] Address [address] [place] [address] Care Team Providers Care Docent Coordinator Name Role Phone Provider, No Known Primary Care Provider Unavail able Social History Tobacco Use Types Packs/Day Years Used Date Smoking Tobacco: Never Assessed Abuse Screen Answer Date Recorded Unsafe at Home or Work/School Not on file Feels Threatened by Someone? Not on file 02/2023 Does Anyone Keep You from Co ntacting Others or Doint Things Outside the Home? Not on file 12/18/2022 Physical Sign of Abuse Present Not on file 1 Housing Stability Answer Date Recorded Current Living Arrangements Not on file 12/07 Potentially Unsafe Housing Conditions Not on thony e 12/18/2022 Family and Community Support Answer Adalberto e Recorded Help with Day-to-Day Activities Not on file 12/18/2022 Lonely or Isolated Not on file 12/18/2022 Employment Answer Date Recorded Do you want help finding or keeping work or a jennifer b? Not on file 12/18/2022 Disabilities Answer Date Recorded Concentrating, Remembering, or Making Decisions Difficulty Not on file 12/18/2022 Doing Errands Independently Difficulty Not on fi le 12/18/2022 Education Answer Date Recorded Help with school or training? Not on file Preferred Language Not on file 12/18/2022 Sex and Gender Information Value Date Recorded Sex Assigned at Not on file Legal Sex Male 10:50 AM EST Gender Identity Not on file Sexual Orientation Not on file Plan of Treatment Health Maintenance Due Date Last Done Comments TDAP/TD VACCINES (1 - Tdap) 1976 COLOGUARD 2002 COLON CANCER SCREENING 5 YEAR SIGMOIDOSCOPY 2002 COLONOSCOPY 2002 [address] CANCER SCREENING 2002 CT COLONOGRAPHY 2002 FECAL OCCULT BLOOD TEST 2002 FIT Testing (1 year) 2002 Pneumococcal Vaccine 50+ (1 of 1 - PCV) 11/02/2007 ZOSTER VACCINE (1 of 2) 11/02/2007 ANNUAL PHYSICAL 08/17/2018 HEPATITIS C SCREENING 08/17/2018 AAA SCREEN ONCE 2022 INFLUENZA VACCINE 10/07/2024 COVID-19 Vaccine ( season) 2024 [facility] Care Teams Docent Coordinator Relationship Specialty Start Date End Date Provider, No Known [facility] [place] [address] PCP - General 02/24/18
--- OUTSIDE RECORDS SUMMARY | 2025-02-24 08:01 | XMS_ITS | Clinical Summary ---
Author Organization [facility] Address [address] [place] [address] Care Team Providers Care Assistant Real Estate Manager Name Role Phone Sacha Dickson MD Primary Care Provider [phone] Allergies Active Allergy Reactions Criticality Noted Date [...] Years Used Date Smoking Tobacco: Former Cigarettes 0 Q uit: 1980 Smokeless Tobacco: Current Tobacco [...] 2002 Sigmoidoscopy 2002 [facility]-Colorectal Cancer Screening 2002 [facility]-RSV Vaccine: 60+ Years o r (1 - Risk 50-74 years 1-dose series) 11/02/2007 [facility]-Zoster Vaccines (1 of 2) 11/02/2007 [facility]-Diabetes: Hemoglobin A1C 10/04/2017 04/06/2017 [facility]-Pneumococcal Vaccine: 50 + Years (2 of 2 - PCV) 12/25/2018 12/25/2017 [facility]-DTaP,Tdap,and Td Vaccine s (1 - Tdap) 02/03/2019 02/02/2019 [id number] Vaccine (3 - season) 2024 04/17/2020, 03/16/2020 [facility]-Influenza Vaccine (#1) 11/07/202412/07, 12/25/2017 [facility]-Hepatitis C Screening Completed 04/06/2017 HPV Vaccines (No Doses Required) Completed [facility]-HIB Vaccines Aged Out No longer e [...] 7:37 PM EST 04/06/2017 8:34 PM EST [facility] Provider LAB BLOOD ORDERABLES Final R esult Performing Organization Address [facility] de Phone Number SUNQUEST * [...] <6.0% Children and Adolescents <7.5% . Source: [place] [employer]. Standards of medical care in diabetes, 2017. Diabetes Care.2017:40 (suppl 1):S1-S135. . HbA1c assay performed by an ion-exchange chromatography method that is certified traceable to the DCCT. 04/06/2017 2:14 AM EST 04/06/2017 2:33 AM EST [facility] Provider LAB BLOOD ORDERABLES Final R esult Performing Organization Address City/[facility] Co de Phone Number SUNQUEST from Last 3 Months or Most Recently Relevant to Health Maintenance Insurance [employer] Care Teams Assistant Real Estate Manager Relationship Specialty Start Date End Date Sacha Dickson MD [address] [place] [address] PCP - General 07/20/20
--- NOTE | 2025-02-24 08:04 | XR_ITS ---
FINAL REPORT CLINICAL HISTORY: LEFT FOOT PAIN COMPARISON: None FINDINGS: LEFT FOOT Three views of the left foot demonstrate no acute fracture or dislocation. The visualized joint spaces are normally aligned. There is a mild plantar spur. There is a punctate rounded metallic density lateral to the 5th proximal phalanx probably related to a small foreign body. IMPRESSION: No acute bony abnormality. Mild plantar spur. Small foreign body lateral to the 5th proximal phalanx. Reviewed, Interpreted and Dictated by Jorje Salguero MD Transcribed by Della Padilla Authenticated and [facility]
== END 2025-02-24 23:59 ==
LOC: RAD 07:59
PROVIDERS: PCP Internal Medicine Adolescent Medicine; Visit Provider Internal Medicine Adolescent Medicine
DX: M21.622 Bunionette of left foot (principal); M77.32 Calcaneal spur, left foot; S90.455A Superficial foreign body, left lesser toe(s), initial encounter; X58.XXXA Exposure to other specified factors, initial encounter
CPT/HCPCS: 73630